=== PATIENT | male | born 1955 | race Caucasian/White ===

== ENCOUNTER 2019-07-18 13:55 | Outpatient (CLI) | payer BC, SELFPAY ==
--- NOTE | 2019-07-18 14:05 | XR_ITS ---
WS: [id number] RIGHT SCAPULA 2 VIEWS REASON FOR STUDY: . HISTORY: RIGHT SHOULDER PAIN COMPARISON: None available. No acute fracture or dislocation is apparent. The RIGHT scapula is intact. Moderate AC joint disease and osteochondral lesion along the superior glenoid are reidentified. Visualized RIGHT upper lung and ribs are clear. 1. Small osteochondral lesion along the superior glenoid. 2. Scapula is otherwise negative. XR/[place] [id number] IMPRESSION:
--- NOTE | 2019-07-18 14:05 | XR_ITS ---
WS: [id number] RIGHT SHOULDER: 2 VIEW(S) TECHNIQUE: Internal and external rotation. HISTORY: RIGHT SHOULDER PAIN COMPARISON: None available. No fracture or dislocation or soft tissue abnormality. Moderate narrowing of the AC joint. Subchondral cystic changes and osteophytes at the AC joint articu lar surfaces. 4 mm osteophyte from the distal inferior clavicle extends towards the rotator cuff. Sma ll osteochondral lesion along the superior glenoid. 1. Moderate AC joint osteoarthritis. 2. Small osteochondral lesion along the superior glenoid. XR/XR shoulder RT min 2V* [id number] IMPRESSION:
== END 2019-07-18 13:56 | disposition home or self-care (01) ==
LOC: WPI 14:00
PROVIDERS: Family Provider Family Medicine; PCP Family Medicine; Referring Provider Family Medicine; Visit Provider Family Medicine
DX: M19.011 Primary osteoarthritis, right shoulder (principal); M93.811 Other specified osteochondropathies, right shoulder; M25.511 Pain in right shoulder
CPT/HCPCS: 73010; 73030

== ENCOUNTER 2019-09-18 12:00 | Outpatient (CLI) | payer BC, SELFPAY | END 2019-09-18 12:01 | disposition home or self-care (01) | LOC: SLEEP 09-19 15:52 | PROVIDERS: Family Provider Family Medicine; PCP Family Medicine; Visit Provider Family Medicine | DX: G47.33 Obstructive sleep apnea (adult) (pediatric) (principal) | CPT/HCPCS: 95810; G0399 ==

== ENCOUNTER 2020-04-19 16:52 | Emergency (ER) | payer BC, SELFPAY ==
[2020-04-19] VITALS (7 sets, daily range): BP systolic 113–158; BP diastolic 73–117; PULSE 80–110; RESP 16–18; TEMP 36.5–36.8; O2SAT 96–99; BMI 24.4
--- NOTE | 2020-04-19 17:39 | XRR_ITS ---
PROCEDURE INFORMATION: Exam: XR Chest, 1 View Exam date and time: 04/19/2020 5:40 PM Age: 64 years old Clinical indication: Dyspnea and shortness of breath; Additional info: Covid TECHNIQUE: Imaging protocol: XR of the chest Views: 1 view. COMPARISON: [place] [id number] 07/18/2019 2:19 PM FINDINGS: Lungs: Unremarkable. No consolidation. Pleural space: Unremarkable. No pleural effusion. No pneumothorax. Heart/Mediastinum: Unremarkable. No cardiomegaly. Calcified granuloma left hilum Bones/joints: Unremarkable. Metallic orthopedic hardware cervical spine XR/XR chest 1V portable [id number] IMPRESSION: No acute findings. Metallic hardware cervical spine
--- NOTE | 2020-04-19 17:40 | ED_ITS ---
HPI - Nausea/Vomiting/Diarrhea General: Chief complaint: Nausea/Vomiting/Diarrhea Stated complaint: COVID + Time Seen by Provider: 04/19/20 17:31 History of Present Illness: HPI Narrative: This patient is a 64-year-old male who comes in with persistent vomiting for the past 4 days. He was noted to be positive for COVID on . That is when his symptoms started. He has had a cough but denies significant shortness of breath. He has had some abdominal discomfort related to vomiting. No diarrhea. He has had body aches, fever, chills. He does not know when or how he was exposed. MD elicited complaint: nausea and vomiting Onset (ago): day(s) (4) Description of vomiting: bilious Associated nausea: Yes Location of pain: Diffuse Associated symtoms: Reports cough, fatigue, headache(s), anorexia, malaise, myalgias, nausea, short of breath and weakness; Denies change in vision or chest pain Review of Systems General: Reports: 10 or more systems reviewed and unremarkable except in HPI and below Const: Reports: fatigue and malaise Eyes: Denies: change in vision ENMT: Denies: odynophagia Card: Denies: chest pain or swelling of feet/ankles Resp: Reports: dyspnea and non-productive cough; Denies: productive cough GI: Reports: nausea and vomiting : Denies: flank pain Musc: Reports: back pain; Denies: neck pain Skin/Breast: Denies: rash Neuro: Reports: headache(s) Danyel/Lymph: Denies: easy bruising or easy bleeding PFS ED PFSH: Social History Smoking and tobacco status: never smoked Alcohol intake: never Physical Exam Const: COMMON NORMALS: no acute distress, average body habitus, patient oriented x3 and alert GENERAL APPEARANCE: cooperative, comfortable and ill appearing (Required assistance to ambulate to the room in the ER. Very weak.) HENMT: HEAD & SCALP: normal to inspection FACE & SINUS: normal facial exam Eye: GENERAL EYE: appearance normal, both eyes and all related structures Neck/C-Spine: COMMON NORMALS: supple, no meningeal signs and no JVD Chest: COMMONS NORMALS: normal inspection of the chest Resp: COMMON NORMALS: normal respiratory effort, No use of accessory muscles and clear to auscultation bilaterally AUSCULTATION: clear to auscultation bilaterally Cardio: COMMON NORMALS: no JVD, regular rhythm and No murmurs present (Cardio) RATE: tachycardic RHYTHM: regular rhythm GI: COMMON NORMALS: Normal to inspection, nondistended, normoactive bowel sounds present and Soft to palpation INSPECTION: Yes normal to inspection AUSCULTATION: Yes normoactive bowel sounds PALPATION: Yes Soft to palpation and Yes Tenderness to palpation present (GI) (Mild, diffuse) Back/Pelvis: COMMON NORMALS: thoracic and lumbar spine normal to inspection Extremity: COMMON NORMALS: normal to inspection Neuro: COMMON NORMALS: patient oriented x3, moves all extremities, no focal motor deficits and no sensory deficits noted SENSORIUM/ORIENTATION: Yes alert MENINGEAL SIGNS: Yes no meningeal signs Psych: COMMON NORMALS: mental status grossly normal, cooperative and normal affect Skin: COMMON NORMALS: no rashes or lesions noted and turgor normal GENERAL SKIN EXAM: no rashes or lesions noted and turgor normal Course ED course: Patient was miserable on arrival with persistent vomiting. After 2 L of fluid and some Zofran he is feeling much better. He was able to tolerate fluids and some Jell-O. His inflammatory markers are not terribly high. His chest x-ray looks okay. We discussed the potential for worsening of this illness between day 7 and 10 or really at any time. He will continue to monitor his symptoms closely and will return if he is worsening. I am in a send him home with some Zofran. Vital Signs: Vital signs: Vital Signs Temperature 98.3 F 04/19/20 22:07 Pulse Rate 84 04/19/20 22:07 Respiratory Rate 16 04/19/20 22:07 Blood Pressure 113/73 04/19/20 22:07 Pulse Oximetry 98 04/19/20 22:07 MDM - Nausea/Vomiting/Diarrhea Lab Data: Labs: Lab Results 04/19/20 04/19/20 04/19/20 Range/Units 18:24 18:24 18:24 WBC 7.7 (4.0-10.0) 10^3/ uL RBC 5.64 H (4.1-5.3) 10^6/u L Hgb 16.9 H (11.7-16.6) g/dL Hct 51.3 (42.0-52.0) % MCV 91.0 (80-94) fL MCH 30.0 (28.0-34.0) pg MCHC 32.9 (30.0-36.0) g/dL RDW 12.2 (12.1-15.1) % Plt Count 276 (130-400) 10^3/c mm MPV 10.1 (7.4-10.4) fL Neut % (Auto) 76.0 % Lymph % (Auto) 16.7 % Mathews % (Auto) 7.1 % Eos % (Auto) 0.0 % Baso % (Auto) 0.1 % Neut # (Auto) 5.86 (1.8-7.7) 10^3/u L Lymph # (Auto) 1.3 (0.8-4.8) 10^3/u L Mathews # (Auto) 0.6 (0.2-0.9) 10^3/u L Eos # (Auto) 0.0 (0.0-0.8) 10^3/u L Baso # (Auto) 0.0 (0.0-0.1) 10^3/u L Nucleated RBC % (a uto) 0 % Nucleated RBCs # 0.0 /100WBC PT 13.10 (12.1-14.9) SECO NDS INR 0.96 (0.8-1.2) Fibrinogen 531 H (174-498) mg/dL D-Dimer 0.37 (0-0.59) ug/mIFE U Sodium 135 L (136-145) mmol/L Potassium 4.7 (3.5-5.1) mmol/L Chloride 95 L (98-107) mmol/L Carbon Dioxide 26 (22-29) mmol/L Anion Gap 18.7 (5-19) BUN 22 (8-23) mg/dL Creatinine 1.0 (0.7-1.2) mg/dL GFR Calculation 75.2 L (90-130) mL/min Glucose 145 H (65-115) mg/dL Calculated Osmolal ity 286 (285-295) mOsm/k g Lactic Acid (0.5-2.2) mmol/L Calcium 9.9 (8.5-10.5) mg/dL Ferritin 215 (30-400) ng/mL Total Bilirubin 0.4 (0.15-1.2) mg/dL AST 27 (0-40) U/L ALT 31 (0-41) U/L Alkaline Phosphata se 117 (40-130) IU/L C-Reactive Protein 9.7 H (0.0-4.9) mg/L NT-Pro-B Natriuret Pep 10 (0-125) pg/mL Total Protein 8.5 (6.6-8.7) g/dL Albumin 4.9 (3.5-5.2) g/dL Globulin 3.6 (1.3-4.6) g/dL Lipase 31 (13-60) U/L Procalcitonin 0.12 (0-0.5) ng/mL 10// Range/Units 18:24 WBC (4.0-10.0) 10^3/ uL RBC (4.1-5.3) 10^6/u L Hgb (11.7-16.6) g/dL Hct (42.0-52.0) % MCV (80-94) fL MCH (28.0-34.0) pg MCHC (30.0-36.0) g/dL RDW (12.1-15.1) % Plt Count (130-400) 10^3/c mm MPV (7.4-10.4) fL Neut % (Auto) % Lymph % (Auto) % Mathews % (Auto) % Eos % (Auto) % Baso % (Auto) % Neut # (Auto) (1.8-7.7) 10^3/u L Lymph # (Auto) (0.8-4.8) 10^3/u L Mathews # (Auto) (0.2-0.9) 10^3/u L Eos # (Auto) (0.0-0.8) 10^3/u L Baso # (Auto) (0.0-0.1) 10^3/u L Nucleated RBC % (a uto) % Nucleated RBCs # /100WBC PT (12.1-14.9) SECO NDS INR (0.8-1.2) Fibrinogen (174-498) mg/dL D-Dimer (0-0.59) ug/mIFE U Sodium (136-145) mmol/L Potassium (3.5-5.1) mmol/L Chloride (98-107) mmol/L Carbon Dioxide (22-29) mmol/L Anion Gap (5-19) BUN (8-23) mg/dL Creatinine (0.7-1.2) mg/dL GFR Calculation (90-130) mL/min Glucose (65-115) mg/dL Calculated Osmolal ity (285-295) mOsm/k g Lactic Acid 2.1 (0.5-2.2) mmol/L Calcium (8.5-10.5) mg/dL Ferritin (30-400) ng/mL Total Bilirubin (0.15-1.2) mg/dL AST (0-40) U/L ALT (0-41) U/L Alkaline Phosphata se (40-130) IU/L C-Reactive Protein (0.0-4.9) mg/L NT-Pro-B Natriuret Pep (0-125) pg/mL Total Protein (6.6-8.7) g/dL Albumin (3.5-5.2) g/dL Globulin (1.3-4.6) g/dL Lipase (13-60) U/L Procalcitonin (0-0.5) ng/mL Discharge Plan Discharge Patient Disposition: Home Clinical Impression: Dehydration, COVID-19 Vomiting Qualifiers: Vomiting type: unspecified Vomiting Intractability: non-intractable Nausea pres ence: with nausea Qualified Code(s): R11.2 - Nausea with vomiting, unspecified Condition: Stable Prescriptions: New ondansetron HCl 4 mg tablet 4 mg PO Q6H PRN (Reason: nausea and vomiting) Qty: 10 RF: 0 No Action Zomig 2.5 mg spray,non-aerosol 2.5 mg INTRANASAL Q2H PRNRF: 0 Discharge Orders: Discharge Order (Routine); Ordered 04/19/20 Ordered By: Nga Ruvalcaba Referrals: Chad Hunt DO [Primary Care Provider] - Discharge Diet: Advance as tolerated Discharge Activity: Limit activity as instructed Patient Instructions: Acute Nausea and Vomiting (ED) Activity Restrictions/Additional Instructions: Return to the emergency room if feeling worse in any way including persistent vomiting, severe diarrhea, confusion, shortness of breath. Coding Level of Care Code ED Retort Loader for Chg Fwd Exam Comprehensive
[2020-04-19] MEDS: ondansetron 4 MG Tablet PO ×2 (18:40→21:58)
[2020-04-19] MEDS: ondansetron 2 mg/ML SDV 2 mL 4 MG IVP (18:40)
[2020-04-19] MEDS: sodium chloride 0.9% 1,000 ML 999 ML IV ×2 (18:40→20:33)
[2020-04-19 18:50] LABS: Basophils % 0.1 %; Hematocrit 51.3 % (42.0-52.0); Hemoglobin 16.9 g/dL (11.7-16.6); Lymphocytes # 1.3 10^3/uL (0.8-4.8); Lymphocytes % 16.7 %; Mean Corpuscular HGB Conc 32.9 g/dL (30.0-36.0); Mean Platelet Volume 10.1 fL (7.4-10.4); Monocytes # 0.6 10^3/uL (0.2-0.9); Monocytes % 7.1 %; Neutrophils # 5.86 10^3/uL (1.8-7.7); Nucleated Red Blood Cells % 0 %; Platelet Count 276 10^3/cmm (130-400); Red Blood Count 5.64 10^6/uL (4.1-5.3); Red Cell Distribution Width 12.2 % (12.1-15.1); White Blood Count 7.7 10^3/uL (4.0-10.0)
[2020-04-19 18:57] LABS: Lactic Sepsis W/Reflex 2.1 mmol/L (0.5-2.2)
[2020-04-19 19:09] LABS: NT Pro B Type Natriuretic Pept 10 pg/mL (0-125); Procalcitonin 0.12 ng/mL (0-0.5)
[2020-04-19 19:20] LABS: Alanine Aminotransferase 31 U/L (0-41); Albumin Level 4.9 g/dL (3.5-5.2); Alkaline Phosphatase 117 IU/L (40-130); Anion Gap 18.7 (5-19); Aspartate Amino Transferase 27 U/L (0-40); Blood Urea Nitrogen 22 mg/dL (8-23); C Reactive Protein 9.7 mg/L (0.0-4.9); Calcium 9.9 mg/dL (8.5-10.5); Carbon Dioxide 26 mmol/L (22-29); Chloride 95 mmol/L (98-107); Ferritin 215 ng/mL (30-400); Globulin 3.6 g/dL (1.3-4.6); Glomerular Filtration Rate 75.2 mL/min (90-130); Glucose 145 mg/dL (65-115); Lipase 31 U/L (13-60); Osmolality Calculated 286 mOsm/kg (285-295); Potassium 4.7 mmol/L (3.5-5.1); Sodium 135 mmol/L (136-145); Total Bilirubin 0.4 mg/dL (0.15-1.2); Total Protein 8.5 g/dL (6.6-8.7)
[2020-04-19 19:53] LABS: Fibrinogen 531 mg/dL (174-498); INR 0.96 (0.8-1.2)
[2020-04-19 19:56] LABS: D Dimer 0.37 ug/mIFEU (0-0.59)
[2020-04-19 20:23] LABS: Reflex Lactate Order REFLEX LACTIC ORDERD
== END 2020-04-19 22:30 | disposition home or self-care (01) ==
PROVIDERS: Nurse Practitioner Family; Emergency Provider Emergency Medicine; Family Provider Family Medicine; PCP Family Medicine
DX: U07.1 COVID-19 (principal); R11.2 Nausea with vomiting, unspecified; E86.0 Dehydration
CPT/HCPCS: 12345; 71045; 80053; 82728; 83605; 83690; 83880; 84145; 85025; 85378; 85384; 85610; 86140; 96361; 96374; 96375; 99284; J2405; J7030; Q0162

== ENCOUNTER 2020-04-28 18:16 | Emergency (ER) | payer BC, SELFPAY ==
[2020-04-28 18:48] VITALS: BP 123/75; PULSE 106; RESP 18; TEMP 37.1; O2SAT 97; BMI 24.3
--- NOTE | 2020-04-28 19:49 | XRR_ITS ---
PROCEDURE INFORMATION: Exam: XR Chest, 1 View Exam date and time: 04/28/2020 9:36 PM Age: 64 years old Clinical indication: Other: Vomit; Prior surgery; Surgery type: Neck; Patient HX: Covid symptoms TECHNIQUE: Imaging protocol: XR of the chest Views: 1 view. COMPARISON: CR (CHEST, ) 04/19/2020 5:51 PM FINDINGS: Lungs: Bilateral interstitial and patchy alveolar infiltrates have developed in the lungs since the previous chest radiograph. This is consistent with a pneumonia possibly viral in nature. Multiple benign hilar and mediastinal calcified lymph nodes are seen. Pleural space: Unremarkable. No pleural effusion. No pneumothorax. Heart/Mediastinum: The heart is not enlarged. Bones/joints: The patient has undergone lower cervical spine surgical fusion.. XR/XR chest 1V portable [id number] IMPRESSION: The for since the previous study the patient has developed bilateral pneumonia.
--- NOTE | 2020-04-28 20:05 | CTR_ITS ---
PROCEDURE INFORMATION: Exam: CT Abdomen And Pelvis With Contrast Exam date and time: 04/28/2020 9:38 PM Age: 64 years old Clinical indication: Nausea and vomiting; Additional info: Abd pain TECHNIQUE: Imaging protocol: Computed tomography of the abdomen and pelvis with intravenous contrast. Radiation optimization: All CT scans at this facility use at least one of these dose optimization techniques: automated exposure control; mA and/or kV adjustment per patient size (includes targeted exams where dose is matched to clinical indication); or iterative reconstruction. Contrast material: OMNI 300; Contrast volume: 95 ml; Contrast route: INTRAVENOUS (IV); COMPARISON: No relevant prior studies available. RADIATION DOSE METRICS: Total DLP (mGy-cm): 616.55 FINDINGS: Lungs: Bibasilar airspace opacities suggestive of an infectious process. Liver: Normal. No mass. Gallbladder and bile ducts: Normal. No calcified stones. No ductal dilation. Pancreas: Normal. No ductal dilation. Spleen: Normal. No splenomegaly. Adrenals: Normal. No mass. Kidneys and ureters: Normal. No hydronephrosis. Stomach and bowel: Unremarkable. No obstruction. No mucosal thickening. Appendix: No evidence of appendicitis. Intraperitoneal space: Unremarkable. No free air. No significant fluid collection. Vasculature: Unremarkable. No abdominal aortic aneurysm. Lymph nodes: Unremarkable. No enlarged lymph nodes. Urinary bladder: Unremarkable as visualized. Reproductive: Unremarkable as visualized. Bones/joints: Unremarkable. No acute fracture. Soft tissues: Unremarkable. CT/CT abdomen pelvis w con* [id number] IMPRESSION: 1. Negative for acute inflammatory process in the abdomen or pelvis 2. Bibasilar airspace opacities suggestive of an infectious process. Radiation Dose CTDIVOL = (mGy): DLP = 616.55 (mGy-cm)
--- NOTE | 2020-04-28 20:23 | W.ED.ABDPA2 ---
HPI - Abdominal Pain General: Chief Complaint: Abdominal Pain Stated Complaint: vomiting/ cant keep anything down Time Seen by Provider: 04/28/20 19:48 Source: patient Mode of arrival: ambulatory Limitations: no limitations History of Present Illness: HPI narrative: 64-year-old male who tested positive for Covid 12 days ago. He states that ever since then he has had severe nausea and vomiting has not been able to keep any solids or liquids down. Patient was seen 1 week ago and prescribed Zofran he states had no improvement. He states he is having generalized weakness. He states he feels dehydrated. Denies any fever cough or shortness of breath. Associated Symptoms: Reports nausea and vomiting; Denies chills, dysuria and fever(s) Review of Systems Const: Denies: fever(s), chills, body aches or change in appetite Eyes: Denies: blurry vision or eye discomfort ENMT: Denies: throat pain or dental pain Card: Denies: chest pain Resp: Denies: dyspnea GI: Reports: nausea and vomiting : Denies: dysuria Musc: Denies: neck pain or back pain Skin/Breast: Denies: rash Neuro: Denies: headache(s) Psych: Denies: depression Danyel/Lymph: Denies: easy bruising All/Imm: Denies: urticaria PFSH ED PFSH: Social History Smoking and tobacco status: never smoked Alcohol intake: never Physical Exam Const: COMMON NORMALS: no acute distress and patient oriented x3 GENERAL APPEARANCE: ill appearing HENMT: COMMON NORMALS: normocephalic and atraumatic HEAD & SCALP: normocephalic and atraumatic Eye: COMMON NORMALS: Equal, round and reactive pupils present and EOMs intact bilaterally PUPIL: Yes Equal, round and reactive pupils present Neck/C-Spine: COMMON NORMALS: full ROM and supple Chest: COMMONS NORMALS: normal inspection of the chest and normal palpation of entire chest wall Resp: COMMON NORMALS: normal respiratory effort, No retractions, No use of accessory muscles and clear to auscultation bilaterally AUSCULTATION: clear to auscultation bilaterally Cardio: COMMON NORMALS: regular rhythm and No murmurs present (Cardio) RATE: tachycardic RHYTHM: regular rhythm GI: COMMON NORMALS: Normal to inspection, nondistended, normoactive bowel sounds present, Soft to palpation, non-tender and no masses PALPATION: Yes Soft to palpation Extremity: COMMON NORMALS: normal to inspection and full ROM Neuro: COMMON NORMALS: patient oriented x3, moves all extremities and no focal motor deficits Psych: COMMON NORMALS: mental status grossly normal, Normal thought process present and cooperative THOUGHT PROCESS: Normal thought process present Skin: COMMON NORMALS: no rashes or lesions noted and no wounds GENERAL SKIN EXAM: no rashes or lesions noted Course Vital Signs: Vital signs: Vital Signs Temperature 98.7 F 04/28/20 18:48 Pulse Rate 86 04/28/20 22:54 Respiratory Rate 16 04/28/20 22:54 Blood Pressure 136/83 04/28/20 22:54 Pulse Oximetry 95 04/28/20 22:54 MDM - Abdominal Pain MDM Narrative: Medical decision making narrative: Patient presents here with vomiting likely from COVID-19. He is otherwise well-appearing here. Patient's CT scan here showed no acute findings and his blood work is normal as well. Patient is stable for discharge and is to follow-up PCP and return if worsening. Lab Data: Labs: Lab Results 04/28/20 04/28/20 Range/Units 20:49 20:49 WBC 8.7 (4.0-10.0) 10^3/ uL RBC 5.34 H (4.1-5.3) 10^6/u L Hgb 15.9 (11.7-16.6) g/dL Hct 47.0 (42.0-52.0) % MCV 88.0 (80-94) fL MCH 29.8 (28.0-34.0) pg MCHC 33.8 (30.0-36.0) g/dL RDW 11.5 L (12.1-15.1) % Plt Count 300 (130-400) 10^3/c mm MPV 10.6 H (7.4-10.4) fL Neut % (Auto) 68.0 % Lymph % (Auto) 19.0 % [place] % (Auto) 12.0 % Eos % (Auto) 0.2 % Baso % (Auto) 0.1 % Neut # (Auto) 5.94 (1.8-7.7) 10^3/u L Lymph # (Auto) 1.7 (0.8-4.8) 10^3/u L [place] # (Auto) 1.1 H (0.2-0.9) 10^3/u L Eos # (Auto) 0.0 (0.0-0.8) 10^3/u L Baso # (Auto) 0.0 (0.0-0.1) 10^3/u L Nucleated RBC % (a uto) 0 % Nucleated RBCs # 0.0 /100WBC Sodium 134 L (136-145) mmol/L Potassium 3.4 L (3.5-5.1) mmol/L Chloride 96 L (98-107) mmol/L Carbon Dioxide 23 (22-29) mmol/L Anion Gap 18.4 (5-19) BUN 20 (8-23) mg/dL Creatinine 0.8 (0.7-1.2) mg/dL GFR Calculation 97.3 (90-130) mL/min Glucose 126 H (65-115) mg/dL Calculated Osmolal ity 282 L (285-295) mOsm/k g Calcium 9.5 (8.5-10.5) mg/dL Total Bilirubin 1.1 (0.15-1.2) mg/dL AST 43 H (0-40) U/L ALT 35 (0-41) U/L Alkaline Phosphata se 109 (40-130) IU/L Total Protein 7.6 (6.6-8.7) g/dL Albumin 4.0 (3.5-5.2) g/dL Globulin 3.6 (1.3-4.6) g/dL Lipase 70 H (13-60) U/L Imaging Data ^: CT Abd/Pel: Radiologist's impression: [address] [place] [address] CT Scan Report Signed Patient: Ramón Clarke Unit #: [id number] : 1955 Age/Sex: 64 / M ADM Date: 04/28/20 Loc: ER Room/Bed: Attending Dr: Ordering Provider/Ordering MD: Kevin Shay MD Date of Service: 04/28/20 Procedure(s): CT abdomen pelvis w con* [id number] Accession Number(s): [id number] Report Number: [id number] PROCEDURE INFORMATION: Exam: CT Abdomen And Pelvis With Contrast Exam date and time: 04/28/2020 9:38 PM Age: 64 years old Clinical indication: Nausea and vomiting; Additional info: Abd pain TECHNIQUE: Imaging protocol: Computed tomography of the abdomen and pelvis with intravenous contrast. Radiation optimization: All CT scans at this facility use at least one of these dose optimization techniques: automated exposure control; mA and/or kV adjustment per patient size (includes targeted exams where dose is matched to clinical indication); or iterative reconstruction. Contrast material: OMNI 300; Contrast volume: 95 ml; Contrast route: INTRAVENOUS (IV); COMPARISON: No relevant prior studies available. RADIATION DOSE METRICS: Total DLP (mGy-cm): 616.55 FINDINGS: Lungs: Bibasilar airspace opacities suggestive of an infectious process. Liver: Normal. No mass. Gallbladder and bile ducts: Normal. No calcified stones. No ductal dilation. Pancreas: Normal. No ductal dilation. Spleen: Normal. No splenomegaly. Adrenals: Normal. No mass. Kidneys and ureters: Normal. No hydronephrosis. Stomach and bowel: Unremarkable. No obstruction. No mucosal thickening. Appendix: No evidence of appendicitis. Intraperitoneal space: Unremarkable. No free air. No significant fluid collection. Vasculature: Unremarkable. No abdominal aortic aneurysm. Lymph nodes: Unremarkable. No enlarged lymph nodes. Urinary bladder: Unremarkable as visualized. Reproductive: Unremarkable as visualized. Bones/joints: Unremarkable. No acute fracture. Soft tissues: Unremarkable. CT/CT abdomen pelvis w con* [id number] IMPRESSION: 1. Negative for acute inflammatory process in the abdomen or pelvis 2. Bibasilar airspace opacities suggestive of an infectious process. Discharge Plan Discharge Patient Disposition: Home Clinical Impression: COVID-19 Vomiting Qualifiers: Vomiting type: unspecified Vomiting Intractability: non-intractable Nausea presence: with nausea Qualified Code(s): R11.2 - Nausea with vomiting, unspecified Condition: Stable Prescriptions: New Reglan 10 mg tablet 10 mg PO Q6H PRN (Reason: nausea and vomiting) Qty: 20 RF: 0 No Action Zomig 2.5 mg spray,non-aerosol 2.5 mg INTRANASAL Q2H PRNRF: 0 ondansetron HCl 4 mg tablet 4 mg PO Q6H PRN (Reason: nausea and vomiting) Qty: 10 RF: 0 Discharge Orders: Discharge Order (Routine); Ordered 04/28/20 Ordered By: Kevin Shay Referrals: Chad Hunt DO [Primary Care Provider] - Discharge Diet: Advance as tolerated Discharge Activity: Resume usual activity Patient Instructions: Acute Nausea and Vomiting (ED) Discharge Date/Time: 04/28/20 22:56 Coding Level of Care Code ED Assistant Store Leader for Chg Fwd Exam Comprehensive
[2020-04-28] MEDS: sodium chloride 0.9% 1,000 ML 999 ML IV ×2 (20:48→22:07)
[2020-04-28] MEDS: ondansetron 2 mg/ML SDV 2 mL 4 MG IVP (20:49)
[2020-04-28 20:53] LABS: Basophils % 0.1 %; Eosinophils % 0.2 %; Hemoglobin 15.9 g/dL (11.7-16.6); Lymphocytes # 1.7 10^3/uL (0.8-4.8); Mean Corpuscular HGB Conc 33.8 g/dL (30.0-36.0); Mean Corpuscular Hemoglobin 29.8 pg (28.0-34.0); Mean Platelet Volume 10.6 fL (7.4-10.4); Monocytes # 1.1 10^3/uL (0.2-0.9); Neutrophils # 5.94 10^3/uL (1.8-7.7); Nucleated Red Blood Cells % 0 %; Platelet Count 300 10^3/cmm (130-400); Red Blood Count 5.34 10^6/uL (4.1-5.3); Red Cell Distribution Width 11.5 % (12.1-15.1); White Blood Count 8.7 10^3/uL (4.0-10.0)
[2020-04-28 21:00] VITALS: BP 114/70; RESP 18; O2SAT 95
[2020-04-28 21:12] LABS: Alanine Aminotransferase 35 U/L (0-41); Alkaline Phosphatase 109 IU/L (40-130); Anion Gap 18.4 (5-19); Aspartate Amino Transferase 43 U/L (0-40); Blood Urea Nitrogen 20 mg/dL (8-23); Calcium 9.5 mg/dL (8.5-10.5); Carbon Dioxide 23 mmol/L (22-29); Chloride 96 mmol/L (98-107); Globulin 3.6 g/dL (1.3-4.6); Glomerular Filtration Rate 97.3 mL/min (90-130); Glucose 126 mg/dL (65-115); Lipase 70 U/L (13-60); Osmolality Calculated 282 mOsm/kg (285-295); Potassium 3.4 mmol/L (3.5-5.1); Sodium 134 mmol/L (136-145); Total Bilirubin 1.1 mg/dL (0.15-1.2); Total Protein 7.6 g/dL (6.6-8.7)
[2020-04-28] MEDS: iohexol 300 mg/mL 100 mL Btl IV (21:55)
[2020-04-28] MEDS: diphenhydrAMINE 50 mg/mL SDV 1mL 25 MG IVP (22:06)
[2020-04-28] MEDS: metoclopramide 5 mg/mL SDV 2 mL IVP (22:06)
[2020-04-28 22:27] VITALS: BP 137/75; PULSE 87; O2SAT 97
[2020-04-28] MEDS: metoclopramide 10 mg Tablet PO ×2 (22:45→22:48)
[2020-04-28 22:54] VITALS: BP 136/83; PULSE 86; RESP 16; O2SAT 95
== END 2020-04-28 22:56 | disposition home or self-care (01) ==
PROVIDERS: Emergency Provider Emergency Medicine; PCP Family Medicine
DX: U07.1 COVID-19 (principal); R11.2 Nausea with vomiting, unspecified
CPT/HCPCS: 12345; 71045; 74177; 80053; 83690; 85025; 96361; 96374; 96375; 99283; J1200; J2405; J2765; J7030; J8597; Q9967

== ENCOUNTER → 2020-12-01 11:46 | Outpatient (BNVA) | payer MEDICARE, BC, SELFPAY | PROVIDERS: PCP Family Medicine; Referring Provider Family Medicine; Visit Provider Specialist | DX: G43.711 Chronic migraine without aura, intractable, with status migrainosus (principal) | CPT/HCPCS: 99204 ==

== ENCOUNTER → 2021-03-01 08:09 | Outpatient (BNVA) | payer MEDICARE, BC, SELFPAY | PROVIDERS: PCP Family Medicine; Visit Provider Specialist | DX: G43.711 Chronic migraine without aura, intractable, with status migrainosus (principal) | CPT/HCPCS: 99212; 99214 ==

== ENCOUNTER → 2021-06-07 14:21 | Outpatient (BNVA) | payer MEDICARE, BC, SELFPAY | PROVIDERS: PCP Family Medicine; Visit Provider Nurse Practitioner | DX: G43.711 Chronic migraine without aura, intractable, with status migrainosus (principal); M54.12 Radiculopathy, cervical region | CPT/HCPCS: 99213; 99214 ==

== ENCOUNTER 2021-06-29 15:24 | Outpatient (CLI) | payer MEDICARE, BC, SELFPAY ==
--- NOTE | 2021-06-29 15:29 | MR_ITS ---
WS: [id number] MRI CERVICAL SPINE NONCONTRAST TECHNIQUE: Sagittal T1, T2 and STIR imaging. Axial T2, gradient, and fiesta imaging. CLINICAL INFORMATION: CERVICAL RADICULOPATHY/POST OP COMPARISON: None. FINDINGS: Straightening of the normal cervical lordosis. Prior postoperative changes ACDF C5-6. Cord signal is normal. No high-grade central canal stenosis. Slight retrolisthesis C3 on C4 and C4 on C5. C2-C3: No significant disc bulging. Moderate left facet arthropathy. Moderate left and no significant right foraminal narrowing. Spinal canal is patent. C3-C4: No significant disc bulging. Moderate left facet arthropathy. Moderate left and no significant right foraminal narrowing. C4-C5: Mild disc osteophytic ridging. Moderate to advanced right facet arthropathy with moderate to s evere right and moderate left bony foraminal narrowing. Spinal canal is patent. C5-C6: Postoperative changes ACDF. Mild bilateral bony foraminal narrowing. Spinal canal is patent. M ild facet arthropathy. C6-C7: Postoperative changes ACDF. Spinal canal is patent. Mild bilateral bony foraminal narrowing. M ild facet arthropathy. C7-T1: No significant disc bulging. Mild left and no significant right foraminal narrowing. Spinal ca nal is patent. Normal visualized brain stem structures. Normal posterior fossa. Small amount of edema in the articul ating left C6-7 facets with periarticular soft tissue edema compatible with synovitis. MR/MR cervical spin wo con* [id number] IMPRESSION: 1. Straightening of the normal cervical lordosis with ACDF C5-6. 2. Spinal canal is patent at the fusion levels. 3. Moderate to severe bony foraminal narrowing worse at left C2-3 and right C4 -C5 with asymmetric moderate to advanced facet arthropathy at these levels 4. Edema involving the articulating left C6-7 facets with periarticular soft t issue edema compatible with synovitis. 5. Spinal canal and foraminal narrowing not significantly changed since 2016
== END 2021-06-29 15:25 | disposition home or self-care (01) ==
PROVIDERS: PCP Family Medicine; Visit Provider Nurse Practitioner
DX: M54.12 Radiculopathy, cervical region (principal); R60.0 Localized edema
CPT/HCPCS: 72141

== ENCOUNTER → 2022-03-04 08:03 | Outpatient (BNVA) | payer MEDICARE, BC, SELFPAY | PROVIDERS: PCP Family Medicine; Visit Provider Nurse Practitioner | DX: G43.711 Chronic migraine without aura, intractable, with status migrainosus (principal); M54.12 Radiculopathy, cervical region; R53.83 Other fatigue; R41.89 Other symptoms and signs involving cognitive functions and awareness; U07.1 COVID-19 | CPT/HCPCS: 82607; 84402; 84403; 84443; 99213; 99214 ==

== ENCOUNTER → 2022-08-05 11:08 | Outpatient (BNVA) | payer MEDICARE, BC, SELFPAY | PROVIDERS: PCP Family Medicine; Visit Provider Nurse Practitioner | DX: G43.711 Chronic migraine without aura, intractable, with status migrainosus (principal) | CPT/HCPCS: 99213 ==

== ENCOUNTER 2022-08-11 13:32 | Outpatient (CLI) | payer MEDICARE, BC, SELFPAY ==
--- NOTE | 2022-08-11 13:59 | XR_ITS ---
WS: [id number] Chest 2 views, 08/11/2022 Clinical Data: short of air with activity Comparison: Portable chest, 04/28/2020 Findings: No nodules, masses or effusions are seen. The heart is normal. The pulmonary vascularity is not increased. No pneumonia or pneumothorax is seen. There are calcified granulomas in the left hilu m extending into the left lower lobe. The aortic arch and descending thoracic aorta show calcificatio n and tortuosity. The diaphragms are flattened. The patient has had an anterior cervical disc fusion. XR/XR chest 2V* [id number] Impression: 1. Atherosclerosis and hyperinflation. 2. Old granulomatous disease.
== END 2022-08-11 13:33 | disposition home or self-care (01) ==
LOC: RAD 13:36
PROVIDERS: PCP Family Medicine; Visit Provider Family Medicine
DX: R06.00 Dyspnea, unspecified (principal); I70.90 Unspecified atherosclerosis; D71 Functional disorders of polymorphonuclear neutrophils; R53.83 Other fatigue; R39.15 Urgency of urination
CPT/HCPCS: 71046; 80053; 81003; 82607; 84443; 85025

== ENCOUNTER 2022-09-01 09:09 | Outpatient (CLI) | payer MEDICARE, BC, SELFPAY | END 2022-09-01 09:10 | disposition home or self-care (01) | LOC: RT 09:11 | PROVIDERS: PCP Family Medicine; Visit Provider Family Medicine | DX: R06.00 Dyspnea, unspecified (principal) | CPT/HCPCS: 94010; 94618 ==

== ENCOUNTER → 2022-11-14 12:28 | Outpatient (BNVA) | payer MEDICARE, BC, SELFPAY | PROVIDERS: PCP Family Medicine; Visit Provider Internal Medicine | DX: R07.9 Chest pain, unspecified (principal); R06.00 Dyspnea, unspecified; Z86.16 Personal history of COVID-19 | CPT/HCPCS: 93005; 99204 ==

== ENCOUNTER 2022-12-19 07:42 | Outpatient (CLI) | payer MEDICARE, BC, SELFPAY ==
--- NOTE | 2022-12-19 08:00 | USCV_ITS ---
Vince Ramón Age: 67 Gender: M : 1955 Exam Date: 12/19/2022 08:26 Ordering Phys: Greg Wynne M.D ([email or web address]) Technologist: Kameron Maki Exam [place] [facility] [place] Indication: sob BP: 130 / 75 HR: 78 Rhythm: Sinus Technical Quality: Adequate MEASUREMENTS (Male / Female) Normal Values 2D ECHO LV Diastolic Diameter PLAX 3.9 cm 4.2 - 5.9 / 3.9 - 5.3 cm LV Systolic Diameter PLAX 3.1 cm IVS Diastolic Thickness 1.3 cm 0.6 - 1.0 / 0.6 - 0.9 cm IVS Systolic Thickness 1.4 cm LVPW Diastolic Thickness 1.1 cm 0.6 - 1.0 / 0.6 - 0.9 cm LVPW Systolic Thickness 1.9 cm LVOT Diameter 1.9 cm LV Ejection Fraction 2D Teich 34.3 % LV Ejection Fraction MOD 2C 73.6 % LV Ejection Fraction 2C AL 74.3 % LA Diameter 3.6 cm IVC Diameter 1.4 cm M-MODE Aortic Annulus Diameter 4.2 cm LA Ao Ratio MM 0.9 DOPPLER AV Peak Velocity 129.0 cm/s LVOT Peak Velocity 85.0 cm/s AV Area Cont Eq vti 2.3 cm squared AV Area Cont Eq pk 1.9 cm squared MV Area PHT 4.3 cm squared Mitral E to A Ratio 0.8 MV E' Velocity 32.5 cm/s Mitral E to MV E' Ratio 11.3 Mitral E to LV E' Lateral Ratio 11.9 Mitral E to LV E' Septal Ratio 10.8 TR Peak Velocity 172.7 cm/s TR Peak Gradient 11.9 mmHg TV Peak E Velocity 72.0 cm/s Right Atrial Pressure 3.0 mmHg Pulmonary Artery Systolic Pressu 14.9 mmHg FINDINGS Left Ventricle Left ventricle is normal in size. LV systolic function is normal with EF of 60 to 65%. No regional wall motion abnormalities are seen. Grade 1 diastolic dysfunction Right Ventricle Normal in size and function Right Atrium Normal in size Left Atrium Normal in size Mitral Valve Structurally normal mitral valve. Trace mitral regurgitation. Aortic Valve Grossly normal. No significant stenosis or regurgitation. Tricuspid Valve Insufficient TR jet to calculate RVSP Pulmonic Valve Not well visualized Pericardium Grossly normal Aorta Normal in size IVC Appears to be normal CONCLUSIONS Technically limited quality echocardiogram because of poor ultrasonic windows. LV systolic function is normal with EF of 60 to 65%. Grade 1 diastolic dysfunction Trace mitral regurgitation No comparison studies are available. Greg Wynne MD (Electronically Signed) Final Date: 31 December 2022 12:47 S
[2022-12-19 08:38] VITALS: BMI 26.5
--- NOTE | 2022-12-19 08:43 | ECG_ITS ---
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 Interpretive Statements NAME OF STUDY: LEXISCAN SESTAMIBI STRESS TEST INDICATION: [Chest Pain, ] Procedure: At the baseline, the blood pressure was 151/98 mmHg with a heart rate of 66 bpm. The electrocardiogram showed normal sinus rhythm, normal axis with normal ST and T's. The Lexiscan was infused over a period of 20 seconds. A total of 0.4 mg of Lexiscan was infused. The stress phase was continued for a total of 5 minutes. Heart rate was at the end of stress phase was 90 bpm and a blood pressure of 166/93 mmHg. The EKG at the peak infusion revealed normal sinus rhythm with no significant ST-T wave changes. Sestamibi was injected 20 seconds after the Lexiscan infusion. Blood pressure at the end of recovery phase was 164/94 mmHg with a heart rate of 82 bpm. Conclusion: 1. Normal EKG response to Lexiscan infusion 2. No Lexiscan induced chest pain or cardiac arrhythmia. 3. Normal blood pressure and heart rate response. 4. Sestamibi/sestamibi perfusion scan pending; see separate report. Electronically Signed On 12-30-2022 14:35:00 CDT by Greg Wynne M.D. [id number]
--- NOTE | 2022-12-19 08:44 | NMCV_ITS ---
NM ann perf SPECT r/s* [id number] Ramón Clarke Age: 67 Gender: M : 1955 Exam Date: 12/19/2022 10:07 Ordering Phys: Greg Wynne M.D ([email or web address]) Technologist: SEAN Salinas Exam Location: [facility] Indications: CHEST PAIN, SHORTNESS OF BREATH STRESS TEST Please see separate stress test report in [facility] for full findings IMAGE PROTOCOL Rest/Stress 1 Lexiscan Day Radiopharmaceutical Dose (mCi) Administration Site Administered by Rest: Tc-99m 10.9 IV SEAN Canas Sestamibi Stress:Tc-99m 32.8 IV SEAN Canas Sestamibi Rest: 19-Dec-2022 60 Discovery 630 Stress: 19-Dec-2022 30 Discovery 630 0.4mg Lexiscan. Images obtained in supine and prone position. SPECT RESULTS Technical Quality: Excellent Raw Data Analysis: Normal Image Corrections: No attenuation or motion correction applied Summed Stress Score: 1 Summed Rest Score: 7 Summed Difference Score: 0 PERFUSION FINDINGS There is reduced radiotracer uptake is noted in inferior and inferolateral stratton that improves with stress imaging. This is consistent with attenuation artifact. No evidence of ischemia seen. FUNCTIONAL RESULTS (calculated via Gated SPECT) Stress Image LV EF (%): 58 Stress EDV (mL):123 TID: 0.95 Stress ESV (mL):52 FUNCTIONAL FINDINGS: There is normal left ventricular systolic function. IMPRESSIONS 1. Attenuation artifact noted in inferior and inferolateral wall. No evidence of ischemia. 2. LV systolic function is normal. Greg Wynne MD (Electronically Signed) Final Date: 22 December 2022 15:14 S
[2022-12-19] MEDS: regadenoson 0.4 Mg/5 ml Syringe IVP (10:42)
[2022-12-19] MEDS: ondansetron 2 mg/ML SDV 2 mL 4 MG IVP (10:50)
[2022-12-19 10:55] VITALS: BP 164/94; PULSE 82
== END 2022-12-19 07:43 | disposition home or self-care (01) ==
LOC: CDL 07:42
PROVIDERS: PCP Family Medicine; Visit Provider Internal Medicine
DX: R07.9 Chest pain, unspecified (principal); R06.00 Dyspnea, unspecified
CPT/HCPCS: 36415; 78452; 93017; 93306; 96374; 96375; A9500; J2405; J2785

== ENCOUNTER → 2023-02-02 12:48 | Outpatient (BNVA) | payer MEDICARE, BC, SELFPAY | PROVIDERS: PCP Family Medicine; Visit Provider Internal Medicine | DX: R06.00 Dyspnea, unspecified (principal) | CPT/HCPCS: 99214 ==

== ENCOUNTER → 2023-02-15 10:52 | Outpatient (BNVA) | payer MEDICARE, BC, SELFPAY | PROVIDERS: PCP Family Medicine; Visit Provider Specialist | DX: R06.00 Dyspnea, unspecified (principal); M54.12 Radiculopathy, cervical region; G43.711 Chronic migraine without aura, intractable, with status migrainosus; R53.83 Other fatigue; G31.84 Mild cognitive impairment of uncertain or unknown etiology | CPT/HCPCS: 0346U; 36415; 82607; 82746; 99215 ==

== ENCOUNTER 2023-03-07 11:37 | Outpatient (CLI) | payer MEDICARE, BC, SELFPAY ==
--- NOTE | 2023-03-07 11:45 | MR_ITS ---
WS: [id number] MRI HEAD WITHOUT CONTRAST TECHNIQUE: Sagittal T1, T2 axial, T2 axial FLAIR, axial and coronal T1 images, axial susceptibility w eighted imaging, axial diffusion weighted images, and coronal T2 images were obtained. CLINICAL INFORMATION: G31.84 - Mild cognitive impairment of uncertain or unknow... COMPARISON: MRI 2006 FINDINGS: No evidence of restricted diffusion to suggest acute ischemia. Ventricular system and basilar cistern s are patent. Mild small vessel changes. Moderate parenchymal volume loss. This has progressed since 2006. Parenchymal volume loss worse in the frontal lobes. Normal posterior fossa. Normal vascular flow voids at the skull base. No extra-axial fluid collection s. No mass or mass effect. Normal posterior nasopharynx. Normal parapharyngeal fat. Paranasal sinuses and mastoid air cells are well aerated. Normal optic chiasm and pituitary infundibulum. Mild symmetr ic atrophy temporal lobes and hippocampal formations. No hemosiderin on the susceptibly weighted imag es. IMPRESSION: 1. No evidence of restricted diffusion to suggest acute ischemia. 2. Progressed mild small vessel changes with moderate parenchymal volume loss worse in the frontal l obes. 3. Mild symmetric atrophy temporal lobes and hippocampal formations. 4. No hemosiderin on the susceptibly weighted images. 5. No other acute findings.
== END 2023-03-07 11:38 | disposition home or self-care (01) ==
LOC: RAD 11:38
PROVIDERS: PCP Family Medicine; Visit Provider Specialist
DX: G31.84 Mild cognitive impairment of uncertain or unknown etiology (principal); I67.89 Other cerebrovascular disease
CPT/HCPCS: 70551

== ENCOUNTER → 2023-05-17 13:48 | Outpatient (BNVA) | payer MEDICARE, BC, SELFPAY | PROVIDERS: PCP Family Medicine; Visit Provider Specialist | DX: G47.33 Obstructive sleep apnea (adult) (pediatric) (principal); G31.84 Mild cognitive impairment of uncertain or unknown etiology; G43.711 Chronic migraine without aura, intractable, with status migrainosus | CPT/HCPCS: 96116; 99215 ==

== ENCOUNTER → 2023-09-01 08:29 | Outpatient (BNVA) | payer MEDICARE, BC, SELFPAY | PROVIDERS: PCP Family Medicine; Visit Provider Specialist | DX: G47.33 Obstructive sleep apnea (adult) (pediatric) (principal); G31.84 Mild cognitive impairment of uncertain or unknown etiology; G43.711 Chronic migraine without aura, intractable, with status migrainosus | CPT/HCPCS: 36415; 62270; 82542; 82607; 99215 ==

== ENCOUNTER → 2023-12-29 07:53 | Outpatient (BNVA) | payer MEDICARE, BC, SELFPAY | PROVIDERS: PCP Family Medicine; Visit Provider Specialist | DX: G47.33 Obstructive sleep apnea (adult) (pediatric) (principal); G31.84 Mild cognitive impairment of uncertain or unknown etiology; G43.711 Chronic migraine without aura, intractable, with status migrainosus | CPT/HCPCS: 96116; 99214; 99215 ==

== ENCOUNTER → 2024-02-01 12:52 | Outpatient (BNVA) | payer MEDICARE, BC, SELFPAY | PROVIDERS: PCP Family Medicine; Visit Provider Internal Medicine | DX: R06.00 Dyspnea, unspecified (principal) | CPT/HCPCS: 99214 ==

== ENCOUNTER → 2024-05-13 10:57 | Outpatient (BNVA) | payer MEDICARE, BC, SELFPAY | PROVIDERS: PCP Family Medicine; Visit Provider Family Medicine | DX: Z13.6 Encounter for screening for cardiovascular disorders (principal); E53.8 Deficiency of other specified B group vitamins; E03.9 Hypothyroidism, unspecified; R53.83 Other fatigue; R42 Dizziness and giddiness; G47.33 Obstructive sleep apnea (adult) (pediatric) | CPT/HCPCS: 80053; 80061; 82607; 83735; 84443; 85025 ==

== ENCOUNTER → 2024-12-20 09:30 | Outpatient (BNVA) | payer MEDICARE, BC, SELFPAY | PROVIDERS: PCP Family Medicine; Visit Provider Family Medicine | DX: E53.8 Deficiency of other specified B group vitamins (principal); R39.15 Urgency of urination; G43.711 Chronic migraine without aura, intractable, with status migrainosus; R35.0 Frequency of micturition; R41.89 Other symptoms and signs involving cognitive functions and awareness; R06.00 Dyspnea, unspecified; G47.33 Obstructive sleep apnea (adult) (pediatric); R60.9 Edema, unspecified; E03.9 Hypothyroidism, unspecified | CPT/HCPCS: 80053; 81000; 82306; 82607; 83735; 84443; 85025 ==

== ENCOUNTER 2025-04-25 10:07 | Emergency (ER) | payer MEDICARE, BC, SELFPAY ==
[2025-04-25 10:11] VITALS: BP 168/92; PULSE 76; RESP 18; TEMP 36.6; O2SAT 98
--- OUTSIDE RECORDS SUMMARY | 2025-04-25 10:29 | XMS_ITS | Clinical Summary ---
Author Organization [facility] Address [address] 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 Gender Identity Not on file Sexual Orientation Not on file Plan of Treatment Upcoming Encounters Date Type Department Care Team (Late st Contact Info) Description 10/14/2025 10:00 AM CDT Office Visit [facility] [place] [address] [place] [address] Jesus Salmon MD [address] [place] [address] Health Maintenance Due Date Last Done Comments DTAP/TDAP/TD VACCINES (1 - Tdap) 1974 COLORECTAL SCREENING 2000 Colorectal Cancer Screening 2000 FIT-DNA Q 3 years 2000 FIT/FOBT Q 1 year 2000 Flex Sig/CT Colonography Q 5 years 2000 PNEUMOCOCCAL VACCINE 50+ YEARS (1 of 1 - PCV) 09/01/19 06 ZOSTER VACCINE (1 of 2) 2005 INFLUENZA VACCINE (#1) 2025 RSV VACCINE (60+ or ) (1 - 1-dose 75+ series) 2030 Insurance MEDICARE PART A AND B [facility]
--- NOTE | 2025-04-25 11:06 | ED_ITS ---
HPI - Headache 2 General: Chief Complaint: Headache Stated Complaint: Dizzy N/V Headache Time Seen by Provider: 04/25/25 11:02 History of Present Illness: 69-year-old man with a history of migrai ne headaches and obstructive sleep apnea, who presents to the emergency room with a migraine that has been persistent for couple of weeks. He says this has happened before where he will get a migraine and the actual headache is gone away but he cannot keep anything down. No abdominal pain. No diarrhea. His doctor did give him some Phenergan which has not helped. No altered mental status. No focal motor deficits. Related Data Previous Rx's ?Medication ?Instructions ?Recorded ketorolac 10 mg tablet 10 mg PO Q6H PRN pain 5 days #10 08/05/22 tabs scopolamine base 1 mg over 3 days 1 patch transdermal Q3D PRN nausea 02/15/23 transdermal patch and vomiting #10 ea doxycycline hyclate 100 mg tablet 100 mg PO BID URI 7 days #14 tabs 08/02/23 prednisone 20 mg tablet 20 mg PO DAILY 5 days #5 tab s 08/02/23 memantine 10 mg tablet 10 mg PO BID #60 tabs memantine 5 mg-10 mg tablets in a See Rx Instructions PO PER PKG DIR 01/09/24 dose pack (Namenda Titration Michael) #49 ea duloxetine 60 mg capsule,delayed 60 mg PO BID #180 cap s 06/10/24 release galantamine 8 mg tablet See Rx Instructions .Route 0 10/08/24 .COMPLEX #180 tabs auto cpap, with supplies #1 ea 12/20/24 rizatriptan 10 mg disintegrating See Rx Instructions . Route 12/31/24 tablet .COMPLEX #10 tabs omeprazole 40 mg capsule,delayed See Rx Instructions . Route 01/15/25 release .COMPLEX #30 caps scopolamine base 1 mg over 3 days 1 patch transdermal Q3D PRN nausea 03/13/25 transdermal patch and vomiting #10 ea zolmitriptan 5 mg nasal spray See Rx Instructions .Rou te 04/02/25 .COMPLEX #6 ea prochlorperazine maleate 5 mg 5 mg PO QID PRN nausea a nd 04/22/25 tablet (Compazine) vomiting/dizziness #30 tabs ondansetron 8 mg disintegrating 8 mg PO Q6H #14 tabs 1 tablet Allergies Allergy/AdvReac Type Severity Reaction Status Date / Time hydrocodone Allergy nausea Verified 04/22/25 11:35 Review of Systems 2 Narrative: Constitutional symptoms: Negative except as documented in HPI. Skin symptoms: Negative except as documented in HPI. Eye symptoms: Negative except as documented in HPI. ENMT symptoms: Negative except as documented in HPI. Respiratory symptoms: Negative except as documented in HPI. Cardiovascular symptoms: Negative except as documented in HPI. Gastrointestinal symptoms: Negative except as documented in HPI. Genitourinary symptoms: Negative except as documented in HPI. Musculoskeletal symptoms: Negative except as documented in HPI. Neurologic symptoms: Negative except as documented in HPI. Psychiatric symptoms: Negative except as documented in HPI. Endocrine symptoms: Negative except as documented in HPI. PFSH ED 2 PFSH: Medical History (Updated 04/25/25 @ 11:40 by Lilian Mcgowan MD) Muscle strain of left thigh Injury of upper leg Migraine Cognitive impairment Fatigue Social History Smoking and tobacco/nicotine status: never used tobacco/nicotine Alcohol intake: never Substance/Drug Use: never Physical Exam 2 Narrative: EXAM NARRATIVE: General: Alert, no acute distress. Skin: Warm, dry. Head: Normocephalic, atraumatic. Neck: Supple, trachea midline. Eye: Extraocular movements are intact. Ears, nose, mouth and throat: Tacky oral mucosa Cardiovascular: Regular, Normal peripheral perfusion. Respiratory: Lungs are clear to auscultation, respirations are non-labored, breath sounds are equal, Symmetrical chest wall expansion. Gastrointestinal: Soft, Nontender, Non distended Musculoskeletal: Normal ROM, no deformity. Neurological: Alert and oriented, No focal neurological deficit observed. Psychiatric: Cooperative, appropriate mood & affect. Course 2 Vital Signs: Vital signs: Vital Signs Temperature 97.9 F 04/25/25 10:11 Pulse Rate 76 04/25/25 10:11 Respiratory Rate 18 04/25/25 10:11 Blood Pressure 150/90 04/25/25 11:39 Pulse Oximetry 98 04/25/25 10:11 Oxygen Delivery Me thod Room Air 04/25/25 10:11 MDM - Headache Medical Decision Making Medical decision making: Differential diagnosis for this patient presenting with severe headache including but not limited to and based on the above HPI, review of systems and physical exam: Intracranial hemorrhage, stroke, migraine, cluster headache, infections such as influenza, covid Orders placed to evaluate differential diagnosis based on the above differential, HPI and physical exam. In this patient however this headache and vomiting are the same as previous headaches so not going to do any imaging today but will do some lab work to check for renal failure and leukocytosis. Anemia. Lab Review: Laboratory results were reviewed and interpreted by myself the emergency room physician. No leukocytosis. No anemia. No renal failure. Liver enzymes are normal. I reviewed the patient's medical record. Reexamination: Patient remained stable. No increased work of breathing. No altered mental status. No focal motor deficits. Assessment and plan: Migraine headache Dehydration - 50 mg IV Benadryl - 10 mg IV Reglan - 8 mg IV Zofran - 60 mg IV Norflex - 1 L normal saline bolus - Discharged home - Discussed plan with patient. Answered any questions. - Evaluation and treatment of this problem were appropriate in the emergency setting. Lab Data 04/25/25 11:15 04/25/25 11:15 Laboratory Results WBC 6.36 10^3/uL (3.29-11.43) 04/25/25 11:15 RBC 5.10 10^6/uL (3.85-5.65) 04/25/25 11:15 Hgb 15.40 g/dL (11.27-16.99) 04/25/25 11:15 Hct 44.5 % (37-53) 04/25/25 11:15 MCV 87.3 fl (82-101) 04/25/25 11:15 MCH 30.2 pg (27-33) 04/25/25 11:15 MCHC 34.6 g/dL (30-55) 04/25/25 11:15 RDW 12.3 % (12.1-15.1) 04/25/25 11:15 Plt Count 232 10^3/cmm (157-399) 04/25/25 11:15 MPV 10.2 fL (7.4-10.4) 04/25/25 11:15 Neut % (Auto) 60.7 % 04/25/25 11:15 Lymph % (Auto) 31.6 % 04/25/25 11:15 Yolo % (Auto) 6.3 % 04/25/25 11:15 Eos % (Auto) 0.9 % 04/25/25 11:15 Baso % (Auto) 0.3 % 04/25/25 11:15 Neut # (Auto) 3.86 10^3/uL (1.8-7.7) 04/25/25 11:15 Lymph # (Auto) 2.0 10^3/uL (0.8-4.8) 04/25/25 11:15 Yolo # (Auto) 0.4 10^3/uL (0.2-0.9) 04/25/25 11:15 Eos # (Auto) 0.1 10^3/uL (0.0-0.8) 04/25/25 11:15 Baso # (Auto) 0.0 10^3/uL (0.0-0.1) 04/25/25 11:15 Nucleated RBC % (auto) 0 % 04/25/25 11:15 Nucleated RBCs # 0.0 /100WBC 04/25/25 11:15 Sodium 136 mmol/L (136-145) 04/25/25 11:15 Potassium 4.2 mmol/L (3.5-5.1) 04/25/25 11:15 Chloride 100 mmol/L (98-107) 04/25/25 11:15 Carbon Dioxide 24 mmol/L (22-29) 04/25/25 11:15 Anion Gap 16.2 (5-19) 04/25/25 11:15 BUN 17 mg/dL (8-23) 04/25/25 11:15 Creatinine 1.0 mg/dL (0.7-1.2) 04/25/25 11:15 GFR Calculation 74.1 mL/min (90-130) L 04/25/25 11:15 Glucose 110 mg/dL (65-115) 04/25/25 11:15 Calculated Osmolality 284 mOsm/kg (285-295) L 04/25/25 11:15 Calcium 9.5 mg/dL (8.5-10.5) 04/25/25 11:15 Total Bilirubin 0.6 mg/dL (0.15-1.2) 04/25/25 11:15 AST 12 U/L (0-40) 04/25/25 11:15 ALT 14 U/L (0-41) 04/25/25 11:15 Alkaline Phosphatase 69 U/L (40-130) 04/25/25 11:15 Total Protein 7.3 g/dL (6.6-8.7) 04/25/25 11:15 Albumin 4.4 g/dL (3.5-5.2) 04/25/25 11:15 Globulin 2.9 g/dL (1.3-4.6) 04/25/25 11:15 No radiology studies performed this visit Discharge Plan Discharge Patient Disposition: Home Clinical Impression: Migraine, Dehydration Condition: Stable Prescriptions: New ondansetron 8 mg tablet,disintegrating 8 mg PO Q6H Qty: 14 0RF Rx Instructions: Take 1/2-1 tab every 6 hours as needed for nausea and vomiting No Action ketorolac 10 mg tablet 10 mg PO Q6H PRN (Reason: pain) 5 Days Qty: 10 1RF Rx Instructions: Take for headaches that are unrelieved with Zomig prednisone 20 mg tablet 20 mg PO DAILY 5 Days Qty: 5 0RF doxycycline hyclate 100 mg tablet 100 mg PO BID 7 Days Qty: 14 0RF prochlorperazine maleate [Compazine] 5 mg tablet 5 mg PO QID PRN (Reason: nausea and vomiting/dizziness) Qty: 30 0RF scopolamine base 1 mg over 3 days patch 3 day 1 patch transdermal Q3D PRN (Reason: nausea and vomiting) Qty: 10 1RF (DME) auto cpap, with supplies See Rx Instructions .Route .MEDSUPPLY Qty: 1 0RF Rx Instructions: 6-14 cm of H2O, use nightly for JOSEFA scopolamine base 1 mg over 3 days patch 3 day 1 patch transdermal Q3D PRN (Reason: nausea and vomiting) Qty: 10 0RF memantine 10 mg tablet 10 mg PO BID Qty: 60 5RF Rx Instructions: after starter pack memantine [Namenda Titration Michael] 5-10 mg tablets,dose pack See Rx Instructions PO PER PKG DIR Qty: 49 0RF Rx Instructions: PO PER PKG DIR duloxetine 60 mg capsule,delayed release(DR/EC) 60 mg PO BID Qty: 180 3RF galantamine 8 mg tablet See Rx Instructions .ROUTE .COMPLEX Qty: 180 3RF Dose Instruction: TAKE 1 TABLET BY MOUTH TWICE DAILY with morning and evening meals Rx Instructions: TAKE 1 TABLET BY MOUTH TWICE DAILY with morning and evening meals rizatriptan 10 mg tablet,disintegrating See Rx Instructions .ROUTE .COMPLEX Qty: 10 5RF Dose Instruction: DISSOLVE ONE TABLET BY MOUTH EVERY 2 HOURS NEEDED FOR MIGRAINE HEADACHE. DO NOT EXCEED THREE DOSES PER 24 HOURS Rx Instructions: DISSOLVE ONE TABLET BY MOUTH EVERY 2 HOURS NEEDED FOR MIGRAINE HEADACHE. DO NOT EXCEED THREE DOSES PER 24 HOURS omeprazole 40 mg capsule,delayed release(DR/EC) See Rx Instructions .ROUTE .COMPLEX Qty: 30 11RF Dose Instruction: TAKE ONE CAPSULE BY MOUTH EVERY DAY FOR stomach Rx Instructions: TAKE ONE CAPSULE BY MOUTH EVERY DAY FOR stomach zolmitriptan 5 mg spray,non-aerosol See Rx Instructions .ROUTE .COMPLEX Qty: 6 0RF Dose Instruction: USE ONE SPRAY EVERY 2 HOURS as needed for headache *max of TWO SPRAYS PER day* Rx Instructions: USE ONE SPRAY EVERY 2 HOURS as needed for headache *max of TWO SPRAYS PER day* Discharge Orders: Discharge ED (Routine); Ordered 04/25/25 Ordered By: Lilian Mcgowan Referrals: Chad Hunt DO [Primary Care Provider, Family Practice] Discharge Diet: Advance as tolerated Discharge Activity: Increase activity as tolerated Patient Instructions: Migraine Headache (ED), Opioid Safety, Pain Management, Patient Portal & Kam Instructions Activity Restrictions/Additional Instructions: Thank you for choosing [facility] for your healthcare needs today. You have been screened and evaluated and felt safe for discharge. Health conditions do change or evolve sometimes and as such it is important that you follow up with your Primary Doctor to be re checked, 3-5 days is a general good time frame for follow up. You are always welcome to return to the ED for re assessment if your symptoms are worsening or you have new concerns Print Language: Kinyarwanda Coding Level of Care Code ED Construction Project Administrator for Bojrn Brown
[2025-04-25 11:21] LABS: Hematocrit 44.5 % (37-53); Hemoglobin 15.40 g/dL (11.27-16.99); Mean Corpuscular HGB Conc 34.6 g/dL (30-55); Mean Corpuscular Hemoglobin 30.2 pg (27-33); Mean Corpuscular Volume 87.3 fl (82-101); Nucleated Red Blood Cells % 0 %; Platelet Count 232 10^3/cmm (157-399); Red Blood Count 5.10 10^6/uL (3.85-5.65); White Blood Count 6.36 10^3/uL (3.29-11.43)
[2025-04-25] MEDS: ondansetron 2 mg/ML SDV 2 mL 8 MG IVP (11:30)
[2025-04-25] MEDS: orphenadrine 30 mg/mL Inj 2 mL 60 MG IVP (11:32)
[2025-04-25] MEDS: diphenhydrAMINE 50 mg/mL SDV 1mL IVP (11:35)
[2025-04-25 11:36] LABS: Alanine Aminotransferase 14 U/L (0-41); Albumin Level 4.4 g/dL (3.5-5.2); Alkaline Phosphatase 69 U/L (40-130); Anion Gap 16.2 (5-19); Aspartate Amino Transferase 12 U/L (0-40); Blood Urea Nitrogen 17 mg/dL (8-23); Calcium 9.5 mg/dL (8.5-10.5); Carbon Dioxide 24 mmol/L (22-29); Chloride 100 mmol/L (98-107); Creatinine Clr Calc Pharmacy 74.5023; Globulin 2.9 g/dL (1.3-4.6); Glucose 110 mg/dL (65-115); Osmolality Calculated 284 mOsm/kg (285-295); Potassium 4.2 mmol/L (3.5-5.1); Sodium 136 mmol/L (136-145); Total Protein 7.3 g/dL (6.6-8.7)
[2025-04-25] MEDS: metoclopramide 5 mg/mL SDV 2 mL 10 MG IVP (11:36)
[2025-04-25 11:39] VITALS: BP 150/90
[2025-04-25 12:16] VITALS: BP 154/76; PULSE 66; RESP 16; O2SAT 97
== END 2025-04-25 12:18 | disposition home or self-care (01) ==
PROVIDERS: Emergency Provider Emergency Medicine; PCP Family Medicine
DX: G43.909 Migraine, unspecified, not intractable, without status migrainosus (principal); E86.0 Dehydration
CPT/HCPCS: 36415; 80053; 85025; 96361; 96374; 96375; 99284; J1100; J1200; J2360; J2405; J2765; J7030

== ENCOUNTER 2025-05-05 12:47 | Emergency (ER) | payer MEDICARE, BC, SELFPAY ==
--- OUTSIDE RECORDS SUMMARY | 2025-04-29 23:34 | XMS_ITS | Encounter Summary ---
Author Organization [facility] Address [address] [place] [address] Care Team Providers Care Integration Lead Name Role Phone Unavailable Primary Care Provider Unavailabl e Reason for Referral * Eval and Treat (5-7 Days) - Incomplete Specialty Diagnoses / Procedures Referred By Contac t Referred To Contact Diagnoses Vertigo Procedures IA OFFICE/OUTPATIENT ESTABLISHED MOD MDM 30 MIN IA OFFICE/OUTPATIENT NEW MODERATE MDM 45 MINUTES Joshua Cornell MD [address] [place] [phone] Phone: tel: fax: Referral ID Status Reason Start Date Expiration Date V isits Requested Visits Authorized [id number] Incomplete 05/02/2025 05/02/2026 1 1 * Eval and Treat (5-7 Days) - Authorized Specialty Diagnoses / Procedures Referred By Contac t Referred To Contact Diagnoses Lesion of parotid gland Procedures IA OFFICE/OUTPATIENT ESTABLISHED MOD MDM 30 MIN IA OFFICE/OUTPATIENT NEW MODERATE MDM 45 MINUTES Joshua Cornell MD [address] [place] [phone] Phone: tel: fax: Referral ID Status Reason Start Date Expiration Date V isits Requested Visits Authorized [id number] Authorized 05/02/2025 05/02/2026 1 1 * Eval and Treat (2-4 Days) - Open Specialty Diagnoses / Procedures Referred By Mya haley Referred To Contact Physical Therapy Diagnoses Benign paroxysmal positional vertigo of left ear Joshua Cornell MD [address] [phone] Phone: tel: fax: [facility] Physical Therapy Services [place] [address] [place] [address] Phone: tel: fax: Referral ID Status Reason Start Date Expiration Date Visits Re quested Visits Authorized [id number] Open 05/02/2025 05/02/2026 6 6 Reason for Visit * Reason Comments Vomiting Pt started getting a migraine and dizziness 2 weeks ago and started vomiting. Pt has also had intermittent dizzy spells as well. Pt was seen by his primary doc and the ER in [place] but has not had relief. Pt states the migraine has resolved but he is still vomiting and it's been 16 days. Pt vomits mainly when he is up and walking. Pt states the dizziness is better but still there some as well.. Dizziness * Auth/Cert (Routine) Specialty Diagnoses / Procedures Referred By Mya haley Referred To Contact Emergency Medicine [facility] Emergency Department [address] [place] [address] Phone: tel: fax: Referral ID Status Reason Start Date Expiration Date Visits Re quested Visits Authorized [id number] 1 1 Encounter Details Date Type Department Care Team (Latest Contact Info) Description 04/29/2025 11:34 PM CDT - 05/02/2025 3:45 PM CDT Hospital Encounter [facility] Medical Telemetry [address] [place] [phone] Dillon Dangelo MD [address] [place] [address] Joshua Cornell MD [address] [phone] Diogenes Bower MD [address] [place] [address] Benign paroxysmal positional vertigo of left ear Discharge Disposition: Home or Self Care Social History Tobacco Use Types Packs/Day Years Used Date Smoking Tobacco: Never Tobacco Cessation:Counseling Given: Not Answered Food Insecurity Answer Date Recorded Do you find you are eating l ess than you should because you can t pay for food? No 04/29/2025 Transportation Needs Answer Date Record ed Have you gone without health care because you didn t have a way to get there? Or worry about transportation for future doctor visits, picker medication, etc.? No 2024 Housing Stability Answer Date Recorded Do you worry you won t have a steady place to sleep or struggle to pay rent or mortgage? No 04/29/2025 Utility Needs Answer Date Recorded Do you have difficulty payin g for utility costs (electric, water or gas bills)? No 04/29/2025 Medication Needs Answer Date Recorded Have you skipped taking medi cation due to cost or worry you can t afford new medications? No 04/29/2025 Feeling Safe Answer Date Recorded Are you in a relationship wi th someone who hurts you emotionally and/or physically? No 04/29/2025 Food Insecurity Answer Date Recorded Patient needs follow up regardin 04/30/2025 Transportation Needs Answer Date Record ed Patient needs follow up regardin 04/30/2025 Utility Needs Answer Date Recorded Patient needs follow up regardin 04/30/2025 Sex and Gender Information Value Date Recorded Sex Assigned at Not on file Legal Sex Male 12:07 AM [employer] Gender Identity Not on file Sexual Orientation Not on file documented as of this encounter Last Filed Vital Signs Vital Sign Reading Time Taken Comments Blood Pressure 130/78 05/02/2025 11:37 AM CDT Pulse 82 05/02/2025 11:37 AM CDT Temperature 36.6 C (97.9 F) 05/02/2025 11:37 AM CDT Respiratory Rate 16 05/02/2025 11:3 7 AM CDT Oxygen Saturation 97% 05/02/2025 11: 37 AM CDT Inhaled Oxygen Concentration - - Weight 77.1 kg (169 lb 15.6 oz) 04/30/2025 7:48 AM CDT Height 177.8 cm (5' 10 ) 04/30/2025 7:48 AM CDT Body Mass Index 24.39 04/30/2025 7:48 AM CDT documented in this encounter Discharge Summaries * Joshua Cornell MD - 05/02/2025 1:05 PM CDT Images from the original note were not included. [facility] Hospitalist- Discharge Summary Ramón Michel 69 y.o. male 1955 CSN: [id number] Date of Admission: 04/29/2025 Date of Discharge: 05/02/2025 LOS: 1 day Discharging Physician: Joshua Cornell MD PCP: No primary care provider on file. Code Status at Discharge: Full Code Dispo: Home Abnormal Imaging: Follow up with PCP: Follow-up: You must follow up with No primary care provider on file. in 3-5 days Follow up with Consultants: With in PT in 1 weeks. Discharge Condition: improving Primary Discharge Diagnosis: Benign paroxysmal positional vertigo of left ear Other Active medical issues also addressed during this admission: Active Hospital Problems Diagnosis Benign paroxysmal positional vertigo of left ear Vertigo Intractable nausea and vomiting Dementia (CMS/HCC) Stress and adjustment reaction GERD (gastroesophageal reflux disease) Resolved Hospital Problems No resolved problems to display. HOSPITAL COURSE: Please see H and P for full details on admission, symptoms and initial care. 69-year-old man presented to the ER with intractable N/V. Reportedly developed a headache, returning from a cruise about a week ago, followed by N/V/vertigo. Gradually improved, now tolerating diet okay, no NV no headache, has some positional vertigo. PT eval done. Ok to DC home with OP vestibular rehab. Referral given. BPPV vs migraine: improved Neuro signed off MRI brain no acute infarct MRA venous: Asymmetric flow suspected from thready nondominant highness, otherwise no thrombosis. Ortho VS negative Stopped galantamine Decreased duloxetine per neuro OP PT f/u Has slight nasal congestion, saline spray added. Prn meclizine. Right Parotid gland lesion: incidentally noted on MRI c spine discussed with Advised OP f/u with ENT- referral given Calcified granuloma: On CXR OP follow-up PCP COMMUNICATION : No primary care provider on file. via [employer] communication MEDICATION CHANGES (significant): See below MEDICATION RECONCILIATION: Current and discharge medications reviewed and reconciled: Yes Consultants: None Procedures performed: DISCHARGE MEDICATIONS: Medication List PAUSE taking these medications galantamine 8 mg Extended Release 24 hour capsule Wait to take this until your doctor or other care provider tells you to start again. Commonly known as: RAZADYNE ER Take 8 mg by mouth daily. Refills: 0 memantine 5 mg Tablet Wait to take this until your doctor or other care provider tells you to start again. Commonly known as: NAMENDA Take 5 mg by mouth 2 times daily. Refills: 0 START taking these medications meclizine 25 mg tablet Commonly known as: ANTIVERT Take 1 Tablet (25 mg) by mouth 3 times daily as needed for Nausea. Signed by: Dr. Richardson Cornell Quantity: 20 Tablet Refills: 0 sodium chloride 0.65 % Aerosol, [place] Commonly known as: OCEAN Administer 2 Sprays in each nostril 4 times daily as needed for Congestion or Allergies. Signed by: Dr. Richardson Cornell Quantity: 200 mL Refills: 0 CHANGE how you take these medications DULoxetine 40 mg Capsule, Delayed Release(E.C.) What changed: medication strength how much to take Take 40 mg by mouth daily. Start taking on: May 03, 2025 Signed by: Dr. Richardson Cornell Quantity: 30 Capsule Refills: 0 CONTINUE taking these medications omeprazole 40 mg Capsule, Delayed Release(E.C.) Commonly known as: PriLOSEC Take 40 mg by mouth daily. Refills: 0 * ZOLMitriptan 5 mg Tablet, Rapid Dissolve Commonly known as: ZOMIG Place 5 mg inside cheek every 2 hours as needed for Migraine. may repeat in 2 hours; max dose 10mg in 24 hours Refills: 0 * Zomig [place], Non-Aerosol Administer 1 [place] in right nostril every 2 hours as needed for Migraine. may repeat in 2 hours; max dose 10mg in 24 hours Refills: 0 Generic drug: ZOLMitriptan * !!Potential duplicate medications found. Review medication list carefully. Where to Get Your Medications These medications were sent to [facility], [place] - [address] [facility] [place] [address] Hours: M-F [phone] Sat [phone] Sun [phone] DULoxetine 40 mg Capsule, Delayed Release(E.C.) meclizine 25 mg tablet sodium chloride 0.65 % Aerosol, [place] Future Appointments Date Time Provider Department Center 10/14/2025 10:00 AM Jesus Salmon MD [facility] Activity level: up as tolerated Diet: DIET GENERAL Effective Wound Care: Not Applicable DISCHARGE EXAM: BP 130/78 (BP Location: Left arm, Patient Position (BP): Supine) Pulse 82 Temp 97.9 ??F (36.6 ??C) (Temporal) Resp 16 Ht 5' 10 (1.778 m) Wt 77.1 kg (169 lb 15.6 oz) SpO2 97% BMI 24.39 kg/m?? Last documented weight: Weight: 77.1 kg (169 lb 15.6 oz) (04/30/25 0748) EXAM: General: seems comfortable, no distress. Lungs: breathing non labored, clear to auscultation bilaterally Heart: normal rate, regular rhythm Abdomen: Soft, non-tender. Non distended. Neurologic: awake, alert. moving all limbs, following simple commands. Extremities: no significant LE edema. Home Healthcare Is this patient being discharged with Home Health? No Total time spent on discharge services today including examining and educating the patient and available family members, writing prescriptions and reviewing the discharge medication list, documentingthis discharge summary and coordinating outpatient care and follow up required >30 minutes. documented in this encounter Discharge Instructions * Discharge Instructions* Joshua Cornell MD - 05/02/2025 1:04 PM CDT Follow up with primary care doctor in 3-5 days of discharge. Discuss resuming your memantine/galantamine gradually. You have been given referral to physical therapy on discharge. You were incidentally noted to have a spot on your right parotid gland. You have been given referral to ENT. Please make sure to follow up with them as soon as possible. You were incidentally noted to have a calcified granuloma on your chest x ray. Follow up with pcp for this. * Attachments The following attachments cannot be sent through Care Everywhere. * Vertigo (Turkmen) documented in this encounter Medications at Time of Discharge DULoxetine 40 mg Capsule, Delayed Release(E.C.) Take 40 mg by mouth daily. 30 Capsule 05/03/2025 meclizine (ANTIVERT) 25 mg tablet Take 1 Tablet (25 mg) by mouth 3 times daily as needed for Nausea. 20 Tablet 05/02/2025 sodium chloride (OCEAN) 0.65 % Aerosol, [place] Administer 2 Sprays in each nostril 4 times daily as needed for Congestion or Allergies. 200 mL 05/02/2025 galantamine (RAZADYNE ER) 8 mg Extended Release 24 hour capsule Take 8 mg by mouth daily. omeprazole (PriLOSEC) 40 mg Capsule, Delayed Release(E.C.) Take 40 mg by mouth daily. ZOLMitriptan (ZOMIG) 5 mg Tablet, Rapid Dissolve Place 5 mg inside cheek every 2 hours as needed for Migraine. may repeat in 2 hours; max dose 10mg in 24 hours memantine (NAMENDA) 5 mg Tablet Take 5 mg by mouth 2 times daily. ZOLMitriptan (Zomig) [place], Non-Aerosol Administer 1 [place] in right nostril every 2 hours as needed for Migraine. may repeat in 2 hours; max dose 10mg in 24 hours documented as of this encounter Progress Notes * Lashell Lovell RN - 05/02/2025 3:34 PM CDT Ramón Michel will be discharged via ambulatory to home. Ramón Michel is accompanied by spouse and will be transported via private vehicle. * Chio Ross, Physical Therapist - 05/02/2025 11:48 AM CDT [facility]. Acute Physical Therapy Vestibular Evaluation 05/02/2025 Room: [address] [place] [address] Name: Ramón Michel Age: 69 y.o. Date of : 1955 Insurance: Payor: MEDICARE / Plan: MEDICARE PART A AND B / Product Type: Medicare / Patient Class: Inpatient Onset of illness/injury or date of surgery: 04/29/2025 Subjective Information/History Subjective Information Provided By: Patient Prior level of Function: patient ambulates without an assistive device indep community distances. He is retired and does drive himself normally. No falls prior to last week he had two falls with his vertigo Has your dizziness/vertigo provoked a fall? Fell back in the bed and into the chair Home Environment: 2-Story home Can live on one level 2 steps to enter the home setting Available Adaptive Equipment: None Assistance available: lives with spouse who can provide 24/ care support. Daughter in the area whois a dental hygentist Patient/Family Goals Statement: I just wonder if this parotid tumor is the cause of all of this Vestibular Subjective Have you had a concussion/whiplash/head injury in the past? No Do you normally wear glasses or contacts? Yes last exam was a couple of years ago has had cataracts removed on the left side Do you have hearing loss? Have you ever had ear surgery or follow regularly with an ENT physician? Reports he feels like his hearing loss bilateral no audiology testing does not have hearing aides, does not follow with ENT upon admission but has new parotid tumor and will have referral to ENT to follow up on care. He did see ENT over 20 years ago for BPPV Do you experience tinnitus (ringing in your ears)? No sometimes feels like he has water running down the right ear but nothing is there when he checksit. Have you had any recent medication changes? Are you taking meclizine? Yes scopolamine patch took a couple of weeks while he was on a cruise normally does not need has used in the past on a cruise, flew to destination for vacation. . He has had meclizine since his hospitalization but not at baseline. Have you ever been treated by a PT or specialist for vertigo/dizziness? Yes over 20 years ago he saw and ENT 1x and describes BPPV type positions to clear up his vertigo it has not occurred since then Onset of dizziness: 04/14/25 Migraine started that day took his medication for that, the dizziness would still be provoked by attempts get upright and mobilize. How long does dizziness last?: short episodes less than 60 seconds. Would you describe your dizziness as if the room is spinning? Yes Is your dizziness/vertigo provoked by: Looking up: No Quick head turns: No Rolling in bed: Yes initially but not today Bending Over: Yes Pain: Refer to Doc Flowsheet for documented pain levels. Consent To Treatment Given By: Patient and Nurse Objective Information/Examination Muscle Tone: Normal Coordination: Normal Sensation: Intact to light touch ROM: Right UE: Active: WNL Left UE: Active: WNL Right LE: Active: WNL Left LE: Active: WNL Strength: Right UE: 5/5. Left UE: 5/5. Right LE: 5/5. Left LE: 5/5. Functional Mobility: Rolling: Independent Scooting: Independent Supine to sit: Independent Sit to supine: Independent Sit to stand: Independent Bed to chair: Independent Gait Training: patient ambulates without an assistive device in the hallway with mild pathway deviation to the left side no loss of balance, slower guarded pace with process. Reports I just know I feel off I guess that sounds weird, but I am off Stair Trainin steps with Independent. Handrails: left Safety Awareness Orientation: Person, Place, Date, and Situation Command Following: good Safety Awareness: Good Precautions Patient Precautions: Fall Risk Bracing/Orthotics: none Weight Bearing: No Restrictions Vitals Patient on room air Vital signs stable throughout session Orthostatic Assessment: Supine: HR 85 BP 128/73 Seated: HR 89 BP 139/71 Standing: HR 103 BP 151/86 Vestibular/Balance Examination Visual Analog Scale dizziness rating 0/10 prior to session 8/10 post session Dynamic Gait Index Gait Level Surface: (2) - Mild Impairment: walks 20', uses AD, slower speed, mild gait deviations Change in Gait Speed: (2) - Mild Impairment: Is able to change speed but demonstrates mild gait deviations, or no gait deviations but unable to achieve a significant change in velocity, or uses an AD Gait with Horizontal Head Turns: (2) - Mild Impairment: Performs head turns smoothly with slight change in gait velocity I.e. minor disruption to smooth gait path or uses AD Gait with Vertical Head Turns: (2) - Mild Impairment: Performs head turns smoothly with slight change in gait velocity I.e. minor disruption to smooth gait path or uses AD Gait and Pivot Turn: (2) - Mild Impairment: Pivot turns safely in > 3 seconds and stops with no loss of balance Step Over Obstacle: (3) - Normal: Is able to step over the box without changing gait speed, no evidence of imbalance Step Around Obstacles: (3) - Normal: Is able to walk around cones safely without changing gait speed; no evidence of imbalance Steps: (2) - Mild Impairment: Alternating feet, must use rail Total Score: 18/24, Interpretation: <20/24 = Predictive of falls in the elderly, >22/24 = Safe ambulator Balance: Feet together and eyes closed: indep Feet together and eyes open: mild sway Back walking drifts to left with subtle imbalance with process Sidestepping bilateral indep Picks up cone off the floor indep Based on objective testing above the patient is considered a fall risk. Cervical Clearance Cervical Range of Motion: normal Vertebral Artery Screening Test or Documented Doppler Results: Yes cleared for testing Oculomotor Exam Visual Assessment Visual Field Screen intact in all planes: normal Smooth Pursuit Tracking (double H): normal Nystagmus present at rest: No Positional Testing Test Nystagmus Observed Post Maneuver Symptoms Interpretation Right [place] Hallpike no unchanged Left [place] Hallpike yes increased Nystagmus moderate lasting over 35 seconds Right Charles Maneuver yes unchanged Left Charles Maneuver yes increased Nystagmus present with positional changes Head Shake Test n/a [facility] AM-PAC Basic Mobility How much help from another person does the patient currently need? Score 1. Turning from your back to your side while in a flat bed without using bedrails? 4 - None (independent) 2. Moving from lying on your back to sitting on the side of a flat bed without using bedrails? 4 - None (independent) 3. Moving to and from a bed to a chair (including a wheelchair)? 4 - None (independent) 4. Standing up from a chair using your arms (e.g., wheelchair, or bedside chair)? 4 - None (independent) 5. Walking in hospital room? 4 - None (independent) 6. Climbing 3-5 steps with a railing? 4 - None (independent) Total score 23/24 0-16 - indicates likely facility discharge 17-24 indicates likely community discharge * scores determined based on patient report, observation or professional expertise Assessment/Plan Ramón Michel is a 69 y.o. male is referred for physical therapy. 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 He was mildly nauseatedfollowing session as a result of the treatment and findings. He is not presenting with symptoms on the right side but does have an underlying parotid tumor that he will be referred to follow up with ENT post discharge from the acute hospital. Patient and spouse have multiple questions about the tumor and are anxious to have consult. Patient responded well to the BPPV treatment but will benefit from follow up with PT OP services who can continue BPPV training/treatment. They are from the [facility] and initially wanted to have treatment back in their area then decided it might be better to follow back up in [place]. Advised if the did f/u in their home town to see if they could getin sooner rather than later, and have a copy of the acute PT evaluation to assist with continuity of care support. Spoke with physician by phone and advised of above findings. . Patient is currently functioning near his prior level of function. Plan will include no further skilled PT in the acute care setting will benefit from f/o in OP vestibular clinic. PT Evaluation: low complexity Recommendations Evaluation only, no further acute PT services needed (Completed order) d/c home today Functional Prognosis: Based on prior level of function and deficits, anticipate good. Based on PT assessment of and/or progress with physical function, AM-PAC Basic Mobility score, potential for improvement, available home support, participation in therapeutic intervention, tolerance for activity, and safety , anticipated discharge disposition, once medically ready: Home with assistance;Home with outpatient PT (vestibular rehab) (05/02/25 1141). Will require Amb. Referral to Physical Therapy ([id number]) for outpatient therapy. Vestibular OP clinic. * The final discharge location is determined through physician, case management, and patient/caregiver input along with insurance authorization of skilled services when appropriate Plan of care and/or discharge recommendations shared with: Patient, Family, Panelboard Operator, and Nurse Referral to Outpatient Physical Therapy Vestibular Fall Balance Clinic is recommended. PT Recommended DME: No new DME recommended (05/02/25 1149). Daily activity recommendations: Ambulate to bathroom with staff, Up in chair for meals, and Ambulation with nursing three times daily Recommendations for referral to another service: none Education/Training Provided Additional education provided: Daily activity with nursing staff, post BPPV instructions, vestibular home program , and outpatient therapy referral Additional treatment provided this session: extensive education on BPPV provided with patient and family present at bedside. HEP provided with left BPPV maneuvers and follow up treatment Learner, method of education, and response to learning listed in Education tab in Epic. Disposition At start of session, patient found lying in bed At end of session, patient left seated in chair, call light in reach, phone in reach, spouse present in room, and staff notified of patient's location Current Diagnoses/Past Medical History Pertinent diagnoses and past medical history related to this hospital stay are present in physicianH&P and physician daily notes. Prior to PT session a thorough chart review was completed including prior PT notes as applicable. Further treatment notes and therapeutic goals can be found in Care Plan Notes. If the patient discharges from the facility before another therapy visit, this shall serve as the therapy discharge summary. Thank you for this referral, Chio Ross, Physical Therapist * Joshua Cornell MD - 05/01/2025 2:14 PM CDT Images from the original note were not included. [facility] work [facility] Hospitalist/Hospital Medicine Progress Note LOS: LOS: 0 days Room/Bed: 7263/01 Patient name: Ramón Michel Date of : 1955 HOSPITAL COURSE SUMMARY 69-year-old man presented to the ER with intractable N/V. Reportedly developed a headache, returning from a cruise about a week ago, followed by N/V/vertigo. 05/01: states feels much better, ate solid food okay Consultants: None SUBJECTIVE: Earlier in AM : pt reports No NV, and feels much better. Checked back later per nurse no NV but got a little dizzy when laid in bed after walking more hesitant in taking patient home Overall they are not sure of how much improvement they are feeling. OBJECTIVE: Temp (24hrs), Av ??F (36.7 ??C), Min:97.5 ??F (36.4 ??C), Max:98.7 ??F (37.1 ??C) BP 138/78 (BP Location: Left arm, Patient Position (BP): Supine) Pulse 81 Temp 98.6 ??F (37 ??C) (Temporal) Resp 19 Ht 5' 10 (1.778 m) Wt 77.1 kg (169 lb 15.6 oz) SpO2 97% BMI 24.39 kg/m?? Intake/Output Summary (Last 24 hours) at 05/01/2025 1414 Last data filed at 05/01/2025 1245 Gross per 24 hour Intake 1006 ml Output -- Net 1006 ml Last documented weight: Weight: 77.1 kg (169 lb 15.6 oz) (04/30/25 6448) EXAM: General: seems comfortable, no distress. Lungs: breathing non labored, clear to auscultation bilaterally Heart: normal rate, regular rhythm Abdomen: Soft, non-tender. Non distended. Neurologic: awake, alert. moving all limbs, following simple commands. Extremities: no significant LE edema. LABORATORY: Recent Labs 04/29/252116 WBC 10.7 HGB 16.0 HCT 47.1 PLT 291 Recent Labs 04/29/25211605/01/25 0124 NA 138 138 K 4.1 4.0 CL 99 105 CO2 24 23 CA 10.1 9.0 BUN 19 16 CREAT 1.19* 1.14 GLUCOSE 109* 95 Recent Labs 04/29/252116 TOTALPROTEIN 7.8 ALBUMIN 4.5 BILITOTAL 0.6 ALKPHOS 66 AST 12 ALT 12 No results for input(s): INR , PT in the last 72 hours. Invalid input(s): PTT Recent Labs 04/29/25211604/29/25 2348 BASETROP <6 -- 2HRTROP -- <6 Diagnostic testing: Reports reviewed. Medications reviewed by me. Primary Discharge Diagnosis: Intractable nausea and vomiting Other Active medical issues also addressed during this admission: Active Hospital Problems Diagnosis Intractable nausea and vomiting Dementia (CMS/HCC) Stress and adjustment reaction GERD (gastroesophageal reflux disease) Resolved Hospital Problems No resolved problems to display. ASSESSMENT AND PLAN: Intractable nausea/vomiting-positional, resolved Vertigo: improved but present. CT head negative MRI brain no acute infarct MRA venous: Asymmetric flow suspected from thready nondominant highness, otherwise no thrombosis. Neurology eval done- MRI no stroke, no spinal stenosis. Stopped galantamine Decreased duloxetine On a scopolamine patch, PPI as needed antiemetics Prn meclizine- repeat today Neuro will follow Check ortho VS PT consult for vestibular rehab/BPPV assessment Right Parotid gland lesion: incidentally noted on MRI c spine discussed with Advised OP f/u with ENT Calcified granuloma: On CXR OP follow-up Dementia: Continue galantamine Mood disorder: Continue duloxetine. No results for input(s): GLUCPOC in the last 72 hours. DVT prevention: lovenox Outpatient follow up: pcp ENT Anticipated Disposition: home Timeframe: tomorrow pending PT eval improved symptoms Code status: Full Code Joshua Cornell MD 05/01/2025, 2:14 PM Winter Sports Manager completed using [employer] Speaking Software. Winter [employer] Manager variances may occur. Effort has been made to assure the accuracy of damascener. Any obvious errors or omissions should be clarified with the author. * Armando Galvan NP - 05/01/2025 2:08 PM CDT NEUROLOGY PROGRESS NOTE 69 y.o. patient admitted 04/29/2025 with Intractable nausea and vomiting. INTERIM HISTORY: 05/01/2025 Symptoms improved -only minor nausea now No new neurologic symptoms BACKGROUND: Ramón Michel is a 69 y.o. male with a longstanding history of migraines since he was a child, consisting of 1-4 severe headaches occurring per month. Headaches are typically pulsatile, occurring behind the eyes and radiate to the back of the neck, worse on the right than the left, and sensitive to light and sound. He also has severe nausea and vomiting when he has headaches. He has had visual auras in the past, as well as occasional mild dizziness, but he has never had severe dizziness that he describes currently. Headaches typically last 1 to 4 days, and he takes Zomig both nasally and for about dissolving tablet under his tongue. 2 weeks ago he developed his typical severe headache which lasted approximately 2 days, and was accompanied by severe nausea and vomiting. The headache resolved, however his nausea and vomiting did not. The vomiting has continued for the past 2 weeks on a daily basis, every time he attempts to stand up. It is temporarily abated by lying still. He also notes dizziness/vertigo, described as a senseof room spinning, provoked by turning over in bed. He is followed by a neurologist and is taking galantamine for possible early dementia. Objective: BP 138/78 (BP Location: Left arm, Patient Position (BP): Supine) Pulse 81 Temp 98.6 ??F (37 ??C) (Temporal) Resp 19 Ht 5' 10 (1.778 m) Wt 77.1 kg (169 lb 15.6 oz) SpO2 97% BMI 24.39 kg/m?? Intake/Output 04/30/25 0700 - 05/01/25 0659 05/01/25 07 - 05/02/25 0659 Total Total Intake P.O. -- 650 650 356 -- 356 P.O. (mL) -- 650 650 356 -- 356 Total Intake -- 650 650 356 -- 356 Output Urine -- -- -- -- -- -- Unmeasured Void -- 2 x 2 x -- -- -- Total Output -- -- -- -- -- -- Net I/O -- 209 650 356 -- 356 Review of Systems Review of Systems Respiratory: Negative. Cardiovascular: Negative. Gastrointestinal: Positive for nausea. Negative for vomiting. Neurological: Negative. MEDICATIONS Reviewed the medication list and time of administration per EHR synopsis section. DATA: The range of BP in the last 24 hours is: BP: (111-146)/(66-78) Temp (24hrs), Av ??F (36.7 ??C), Min:97.5 ??F (36.4 ??C), Max:98.7 ??F (37.1 ??C) Vitals With Comments 05/01/2025 1152 05/01/2025 0716 05/01/2025 0434 05/01/2025 0114 BP: 138/78 131/74 111/66 119/69 Pulse: 81 70 66 70 Resp: 19 16 16 16 Temp: 98.6 ??F (37 ??C) 97.5 ??F (36.4 ??C) 97.5 ??F (36.4 ??C) 97.9 ??F (36.6 ??C) Temp src: Temporal Temporal Temporal Temporal SpO2: 97 % 95 % 96 % 95 % Intake/Output Summary (Last 24 hours) at 05/01/2025 1408 Last data filed at 05/01/2025 1245 Gross per 24 hour Intake 1006 ml Output -- Net 1006 ml EXAMINATION General: NAD, pleasant, cooperative CVS: RRR, no carotid bruit. Chest: No signs of resp distress, clear breath sounds Abdomen: Soft, NTTP Extremities: no edema or cyanosis Neuro: MENTAL STATUS: AAOx3, attentive, memory intact, fund of knowledge appropriate LANG/SPEECH: Naming and repetition intact, fluent, follows commands CRANIAL NERVES: II: Pupils equal and reactive, no RAPD, no VF deficits III, IV, : EOM intact, no gaze preference or deviation, no nystagmus. V: normal sensation in V1, V2, and V3 segments bilaterally VII: no asymmetry, no nasolabial fold flattening Cranial nerves VIII to XII are normal MOTOR: 5/5 in both upper and lower extremities SENSORY:Normal COORD: Normal finger to nose, no tremor, no dysmetria GAIT: Normal; patient able to tip-toe, heel-walk. Data: IMAGING - Images were reviewed- Labs - reviewed IMPRESSION: 69 y.o.-year-old male patient with: - intractable nausea and vomiting following migraine - TORREZ resolved but N/V has persisted; improved this am and no new neurologic symptoms. MRI without acute pathology. Symptoms could represent prolonged migrainous phenomena but could also be medication related. Galantamine has history of cause suchsymptoms in some individuals and may increase as dose is increased. Symptoms improved as medicationheld and antiemetics have been used. - Lower ext spasticity noted incidentally - MRI spine without central canal stenosis; This can be followed up in OP neurology clinic PLAN: Continue medical management Holding galantamine - may consider restarting at lower dose with slower titration in OP clinic Cymbalta reduced to 40mg daily - continue this dose for now Nothing further to add to acute neurologic care -Will no longer follow with daily rounding visits but available as needed -Please call if further assistance is needed Communication: Plan of care was communicated with the pt and family at bedside, all questions were answered. Armando Galvan DNP, SUGAR CONTROLLER-C, AGACNP-BC, SCRN, CNRN Nurse Practitioner - [facility] [place], [place] Cosigned by Bg Frank MD at 05/01/2025 7:17 PM CDT * Joshua Cornell MD - 04/30/2025 7:43 AM CDT 69-year-old man presented to the ER with intractable N/V. Reportedly developed a headache, returning from a cruise about a week ago, followed by N/V/vertigo. Intractable nausea/vomiting-positional CT head negative MRI brain no acute infarct MRA venous: Asymmetric flow suspected from thready nondominant highness, otherwise no thrombosis. On a scopolamine patch, PPI as needed antiemetics Neurology consulted from ER-recommendations pending On IV fluids Still awaiting neuro: will call again Added meclizine as pt still symptomatic Calcified granuloma: On CXR OP follow-up Dementia: Continue galantamine Mood disorder: Continue duloxetine. * Robert Yadav PHARMACIST - 04/30/2025 1:33 AM CDT RX ANTICOAG MONITORING ORDERS Pharmacy to order, review, and report clinically significant changes in lab per [facility] Anticoagulation Protocol as follows: Orders for dosing changes and follow-up labs will be signed ???Per Protocol?? in Epic. The name ofthe provider signed on the follow-up orders for cosignature will be assigned as follows: Orders placed by members of the Runner On or Hospitalist physician groups: If the original ordering provider is no longer the attending physician for the patient, responsibility for cosignature of the follow-up medication orders and labs will transfer from the original ordering provider to the current attending physician. Orders placed by any other provider: Responsibility for cosignature of the follow-up medication orders and labs will remain with the original ordering provider of the anticoagulant order. Pharmacy will order appropriate labs as indicated by the [facility] Anticoagulation Monitoring policy located on [facility] intranet, unless already ordered. The medications that will be monitored include (but are not limited to): Low molecular weight heparin, heparin, and fondaparinux Direct Thrombin Inhibiors (argatroban, bivalirudin dabigatran lepirudin) Warfarin Direct oral anticoagulants (rivaroxaban, apixaban, edoxaban) Pharmacy will order labs for patients not on a heparin protocol, warfarin protocol, or anticoagulant protocol. Nursing to order labs required as indicated by those protocols. This policy is in compliance with the [employer] National Patient Safety Goal 3E and authorized by the [facility] Pharmacy and Therapeutics Committee. Cosigned by Diogenes Bower MD at 04/30/2025 3:51 AM CDT documented in this encounter H&P Notes * Diogenes Bower MD - 04/30/2025 1:14 AM CDT HISTORY OF PRESENT ILLNESS Ramón Michel is a 69 y.o. male admitted with intractable nausea and vomiting on 04/29/2025 Subjective HPI Mr. Michel is a 69 year old with mild dementia, GERD and chronic stress. He presents to the ER with intractable nausea and vomiting. A couple of weeks ago he went on a cruise and got home about a weekago. On returning home he developed a headache that was a typical headache for him. He also developed some nausea and vomiting along with the headache which is also typical. However after the headache resolved, the nausea and vomiting has persisted. He also had an episode of vertigo. Currently boththe headache and vertigo have resolved, but every time he tries to stand he has a recurrence of thenausea. REVIEW OF SYSTEMS Review of Systems Constitutional: Negative for fatigue, fever and unexpected weight change. HENT: Negative for congestion, hearing loss, postnasal drip, rhinorrhea and sinus pressure. Eyes: Negative for pain and visual disturbance. Respiratory: Negative for cough, chest tightness, shortness of breath and wheezing. Cardiovascular: Negative for chest pain and palpitations. Gastrointestinal: Positive for nausea and vomiting. Negative for abdominal pain. Musculoskeletal: Negative for arthralgias and myalgias. Skin: Negative for rash. Neurological: Positive for dizziness and headaches. HISTORY REVIEW I have reviewed and updated all historical information Objective PHYSICAL EXAM Last Vitals: BP (!) 141/74 Pulse 71 Temp 98.1 ??F (36.7 ??C) (Oral) Resp 14 Ht 5' 10 (1.778 m) Wt 77.1 kg (170 lb) SpO2 96% BMI 24.39 kg/m?? Physical Exam HENT: Head: Normocephalic and atraumatic. Right Ear: External ear normal. Left Ear: External ear normal. Eyes: Conjunctiva/sclera: Conjunctivae normal. Pupils: Pupils are equal, round, and reactive to light. Cardiovascular: Rate and Rhythm: Normal rate and regular rhythm. Heart sounds: Normal heart sounds. Pulmonary: Effort: Pulmonary effort is normal. Breath sounds: Normal breath sounds. Abdominal: General: Bowel sounds are normal. Palpations: Abdomen is soft. Skin: General: Skin is warm and dry. Neurological: Mental Status: He is alert and oriented to person, place, and time. Comments: Neuro exam deferred. Movement causes nausea so patient preference is to defer the neuro exam. See exam in ER physican note. Psychiatric: Mood and Affect: Mood normal. DIAGNOSTICS I have reviewed all of the patient's diagnostics. Assessment ASSESSMENT/PLAN: Principal Problem: Intractable nausea and vomiting Neurology has been consulted and is managing the headache, and vertigo. Plan for observation for management of the intractable nausea and vomiting. Will begin a scopolamine patch with as needed Zofran and Compazine. Advance diet as tolerated. Will give a single dose of lorazepam now. Active Problems: Dementia (CMS/HCC) Continue galantamine. Stress and adjustment reaction Continue duloxetine. GERD (gastroesophageal reflux disease) Continue omeprazole as Protonix. Code Status: Full Code Admission Status: He will be observation for nausea control. Diet: clear liquids, advance as tolerated. DVT prophylaxis: Lovenox Time Spent on admission 60 minutes. documented in this encounter Consult Notes * Jose Alejandro Almanza MD - 04/30/2025 3:51 PM CDT Consultation requested by Dr. Rodriguez ref. provider found children's minister: No primary care provider on file. Reason for consult: Intractable nausea vomiting HPI Ramón Michel is a 69 y.o. male with a longstanding history of migraines since he was a child, consisting of 1-4 severe headaches occurring per month. Headaches are typically pulsatile, occurring behind the eyes and radiate to the back of the neck, worse on the right than the left, and sensitive to light and sound. He also has severe nausea and vomiting when he has headaches. He has had visual auras in the past, as well as occasional mild dizziness, but he has never had severe dizziness that he describes currently. Headaches typically last 1 to 4 days, and he takes Zomig both nasally and for about dissolving tablet under his tongue. 2 weeks ago he developed his typical severe headache which lasted approximately 2 days, and was accompanied by severe nausea and vomiting. The headache resolved, however his nausea and vomiting did not. The vomiting has continued for the past 2 weeks on a daily basis, every time he attempts to stand up. It is temporarily abated by lying still. He also notes dizziness/vertigo, described as a senseof room spinning, provoked by turning over in bed. He is followed by a neurologist and is taking galantamine for possible early dementia. Past medical history: No past medical history on file. No past surgical history on file. ROS: Constitutional: denied fever, chill, weight changes. HEENT: No double vision, blurry vision, or speech/swallow problems. hearing loss, headache. Cardio: No chest pain, dyspnea on exertion, pedal edema, orthopnea. Pulmonary: No wheezing, cough, short of breath. Gastrointestinal: As per HPI Urinary: No dysuria, hematuria, urinary incontinence. Skeletalmuscular: No joint pain Neurological: As per HPI Psychiatric: No depression, anxiety, mood swings. 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 Visual barragan intact. II Fundoscopic Examination: Not examined III, IV, : EOMI V: Facial sensation intact. VII: Face is strong VIII: Hearing intact to voice IX, X: Palate rises symmetrically. XI: Normal sternocleidomastoid and trapezii bulk, tone and strength. XII: Tongue has normal bulk and movement. Motor Abnormal Movements: None Spontaneous Muscle Activity: no fasciculations. Tone: normal at all extremities Strength: 5/5 at all extremities. Reflexes -2/4 in the bilateral upper extremities, 3/4 patellar, 4/4 ankle with sustained clonus, aswell as bilateral upgoing toes. Sensory Normal to LT and PP at all extremities. Coordination Finger - nose - finger: normal Gait Unable to perform due to acute illness. Reviewed the test and lab result: MRI of the brain: No acute infarct. Minimal nonspecific white matter disease. MR venogram: Asymmetric decreased flow void seen within the left transverse sinus is nonspecific but suspected to represent a thready nondominant sinus. Otherwise no dural sinus venous thrombosis is seen. A/P: Acute persistent nausea vomiting, occurring in the context of atypical migraine 2 weeks ago. However, the nausea vomiting has persisted despite resolution of the headache, and he has also developed new onset intermittent vertigo. The vertigo has also resolved, but the nausea and vomiting is persisting. Etiology unclear. Each of above symptoms is potentially due to migrainous phenomena. However, galantamine and Cymbalta are both associated with severe nausea. Recommend stopping galantamine and reducing Cymbalta to 40 mg daily. No evidence of fever, meningismus, or persistent headache, so at this time we can hold off on lumbar puncture. If the above measures are unsuccessful, consider GI evalu ation. Of note, the patient has bilateral lower extremity spasticity of unknown etiology. Will add MRI of the C/T-spine without contrast. PLAN/RECOMMENDATION MRI brain/MR venogram unremarkable Add MRI of the C/T-spine Reduce Cymbalta to 40 mg daily, and hold galantamine for now Continue antiemetics, consider Compazine as that can often be particularly useful with migraine Neurology will continue to follow. Allergies: Hydrocodone Current Facility-Administered Medications Medication Dose Route Frequency Provider Last Rate Last Admin [COMPLETED] sodium chloride 0.9 % bolus solution 1,000 mL 1,000 mL IV ONE time only Govind Dangelo MD Stopped at 04/30/25 0114 sodium chloride 0.9 % infusion IV continuous Dillon Dangelo MD 100 mL/hr at 04/30/25 1550 New Bag at 04/30/25 1550 pantoprazole (PROTONIX) tablet 40 mg 40 mg Oral daily BEFORE breakfast Diogenes Bower MD 40 mg at 04/30/25 0826 scopolamine (TRANSDERM-SCOP) 1 mg/72 hr transdermal patch 1 Patch 1 Patch Transdermal every 72 hours Diogenes Bower MD 1 Patch at 04/30/25 0201 [COMPLETED] LORazepam (ATIVAN) 2 mg/mL injection 0.5 mg 0.5 mg IV ONE time only Diogenes Bower MD 0.5 mg at 04/30/25 0140 sodium chloride flush injection 10 mL 10 mL IV every 12 hours (2 times daily) Diogenes Bower MD 10mL at 04/30/25 0130 sodium chloride flush injection 10 mL 10 mL IV see admin instructions Diogenes Bower MD sodium chloride 0.9 % flush bag 25 mL 25 mL IV see admin instructions Diogenes Bower MD dextrose 5 % in water 250 mL flush bag 25 mL 25 mL IV see admin instructions Diogenes Bower MD naloxone (NARCAN) 0.4 mg/mL injection 0.1-0.4 mg 0.1-0.4 mg IV see admin instructions Diogenes Bower MD acetaminophen (TYLENOL) tablet 650 mg 650 mg Oral every 6 hours PRN Diogenes Bower MD oxyCODONE (ROXICODONE) tablet 5 mg 5 mg Oral every 4 hours PRN Diogenes Bower MD ondansetron (ZOFRAN) 4 mg/2 mL injection 4 mg 4 mg IV every 6 hours PRN Diogenes Bower MD aluminum - magnesium - simethicone (MYLANTA) 200-200-20 mg/5 mL oral suspension 30 mL 30 mL Oral every 2 hours PRN Diogenes Bower MD sennosides-docusate sodium (SENNA-S) 8.6-50 mg per tablet 1 Tablet 1 Tablet Oral BID PRN Diogenes Bower MD magnesium HYDROXIDE (MILK OF MAGNESIA) oral suspension 30 mL 30 mL Oral daily PRN Diogenes Bower MD Or bisacodyL (DULCOLAX) rectal suppository 10 mg 10 mg Rectal daily PRN Diogenes Bower MD melatonin tablet 9 mg 9 mg Oral at bedtime PRN Diogenes Bower MD enoxaparin (LOVENOX) injection 40 mg 40 mg subCUT every 24 hours Diogenes Bower MD 40 mg at 04/30/25 0827 meclizine (ANTIVERT) tablet 25 mg 25 mg Oral TID PRN Joshua Cornell MD 25 mg at 04/30/25 1150 [START ON 05/01/2025] DULoxetine (CYMBALTA) capsule 40 mg 40 mg Oral daily Jose Alejandro Almanza MD [DISCONTINUED] galantamine (RAZADYNE) tablet 8 mg 8 mg Oral BID WITH meals Diogenes Bower MD 8 mg at 04/30/25 0958 [DISCONTINUED] DULoxetine (CYMBALTA) capsule 60 mg 60 mg Oral daily Diogenes Bower MD 60 mg at 04/30/25 0826 [DISCONTINUED] prochlorperazine maleate (COMPAZINE) tablet 10 mg 10 mg Oral every 6 hours PRN Diogenes Bower MD No family history on file. Social History Socioeconomic History Marital status: Spouse name: Not on file Number of children: Not on file Years of education: Not on file Highest education level: Not on file Occupational History Not on file Tobacco Use Smoking status: Never Smokeless tobacco: Not on file Substance and Sexual Activity Alcohol use: Not on file Drug use: Not on file Sexual activity: Not on file Other Topics Concern Not on file Social History Narrative Not on file Health-Related Social Needs Food Insecurity: Not on file (04/30/2025) Transportation Needs: No Transportation Needs (04/30/2025) Transportation Needs Patient needs follow up regarding:: 1 Domestic Concerns: Not At Risk (04/29/2025) Feeling Safe Patient has indicated abuse: : No Housing Stability: Low Risk (04/29/2025) Housing Stability Struggle to pay rent or mortgage: No Results for orders placed or performed during the hospital encounter of 04/29/25 (from the past 24 hours) CBC WITH DIFFERENTIAL Result Value Ref Range WBC 10.7 4.8 - 10.8 K/uL RBC 5.27 4.60 - 6.20 M/uL HEMOGLOBIN 16.0 14.0 - 18.0 g/dL HEMATOCRIT 47.1 41.0 - 53.0 % MCV 89.4 84.0 - 103.0 fL MCH 30.4 27.0 - 34.0 pg MCHC 34.0 30.0 - 35.0 g/dL PLATELETS 291 140 - 440 K/uL MPV 9.9 8.9 - 12.8 fL RDW 12.7 11.0 - 14.5 % RDW-STDEV 41.6 37.0 - 54.0 fL NEUTROPHILS 56 42 - 75 % LYMPHOCYTES 36 24 - 44 % MONOCYTES 7 2 - 10 % EOSINOPHILS 0 0 - 7 % BASOPHILS 0 0 - 1 % IMMATURE GRANULOCYTES 0 0 - 2 % NEUTROPHIL ABSOLUTE 6.04 2.00 - 8.00 K/uL LYMPHOCYTE ABSOLUTE 3.83 1.20 - 4.00 K/uL MONOCYTE ABSOLUTE 0.76 (H) 0.10 - 0.60 K/uL EOSINOPHIL ABSOLUTE 0.04 0.00 - 0.70 K/uL BASOPHILS ABSOLUTE 0.03 0.00 - 0.20 K/uL IMMATURE GRANULOCYTES ABSOLUTE 0.01 0.00 - 0.10 K/uL SMEAR REVIEWED: NA - Not Applicable COMPREHENSIVE METABOLIC PANEL Result Value Ref Range SODIUM 138 136 - 145 mmol/L POTASSIUM 4.1 3.5 - 5.1 mmol/L CHLORIDE 99 98 - 107 mmol/L CO2 24 22 - 29 mmol/L CALCIUM 10.1 8.8 - 10.2 mg/dL BUN 19 8 - 23 mg/dL CREATININE 1.19 (H) 0.67 - 1.17 mg/dL GLUCOSE 109 (H) 74 - 99 mg/dL TOTAL PROTEIN 7.8 6.4 - 8.3 g/dL ALBUMIN 4.5 3.5 - 5.2 g/dL BILIRUBIN TOTAL 0.6 0.0 - 1.0 mg/dL ALKALINE PHOSPHATASE 66 40 - 129 U/L AST 12 10 - 50 U/L ALT 12 <=50 U/L GFR >60 >=60 mL/min/1.73 sq meter ANION GAP 15 9 - 20 mmol/L TROPONIN BASELINE, 5TH GEN Result Value Ref Range TROPONIN T, BASELINE 5TH GEN <6 <=15 ng/L LIPASE Result Value Ref Range LIPASE 28 13 - 60 U/L MAGNESIUM LEVEL Result Value Ref Range MAGNESIUM 2.0 1.6 - 2.4 mg/dL URINALYSIS WITH REFLEX MICROSCOPIC Result Value Ref Range COLOR UA Yellow Pale to Dark Yellow CLARITY UA Clear Clear SPECIFIC GRAVITY UA 1.035 1.003 - 1.035 PH UA 6.5 5.0 - 8.0 LEUKOCYTE ESTERASE UA Negative Negative NITRITE UA Negative Negative PROTEIN UA 1+ (A) Negative GLUCOSE UA Negative Negative KETONES UA 2+ (A) Negative UROBILINOGEN UA <2.0 <2.0 mg/dL BILIRUBIN UA Negative Negative BLOOD UA Negative Negative WBC UA 0-2 0 - 2 /hpf RBC UA 0-2 0 - 2 /hpf BACTERIA UA Negative Negative /hpf EPITHELIAL CELLS, URINE 0-5 0 - 5 /hpf TROPONIN 2 HR, 5TH GEN Result Value Ref Range TROPONIN T, 2 HR 5TH GEN <6 <=15 ng/L Thank you for the consultation. Jose Alejandro Almanza MD Neurology at [facility] documented in this encounter ED Notes * Dede Garcia RN - 04/30/2025 1:51 PM CDT Report called to Atiya Haddad RN * Dede Garcia RN - 04/30/2025 7:33 AM CDT Assumed care of patient. No needs expressed at this time. Patient sleeping on stretcher. Equal chest rise and fall noted. * Emily Munoz LPN - 04/30/2025 5:35 AM CDT Placed pt on 1.5 liters NC due to pt desatting to 86% while alseep. Pt now 95%. * Emily Munoz LPN - 04/30/2025 5:07 AM CDT Pt resting in bed comfortably. Resp even and unlabored. Denies needs at this time. Call light within reach * Emily Munoz LPN - 04/30/2025 1:42 AM CDT Pt resting in bed comfortably. Resp even and unlabored. Denies needs at this time. Call light within reach * Emily Munoz LPN - 04/30/2025 12:57 AM CDT MRI form completed and faxed at this time. * Emiyl Munoz LPN - 04/29/2025 11:55 PM CDT Pt roomed to 12 , resting in bed . Resps are even and unlabored. C/o vomiting for over 2 weeks and a migraine. Call light is within reach. * Ashutosh March - 04/29/2025 7:17 PM CDT Triage Protocol EKG [facility] EKG obtained in triage and reviewed by: Dr. Scott at Time: 1915 Patient will: Remain in the waiting room under the triage protocol and will be roomed per usual triage process. Primary triage nurse Andra notified. * Soy Rush PA - 04/29/2025 7:08 PM CDT Patient presents to ER with concern for headache, dizziness and vomiting for the past 2-3 weeks. Hedenies any fall or head injury. He states headache comes and goes and dizziness is better today. Dizziness is like room is spinning around him. He has a history of migraines since he was a kid. This is not his typical symptoms. He denies any chest pain, SOB, focal weakness/numbness in arms or legs,speech, changes. He has some epigastric pain with vomiting. Vitals: 04/29/25 1849 BP: (!) 146/81 Pulse: 76 Resp: 17 Temp: 98.1 ??F (36.7 ??C) SpO2: 98% Exam: Constitutional: Alert and oriented with no apparent distress. Respiratory: No obvious signs of respiratory distress. Neuro: Alert and oriented X3. Cardiac: RRR Abd: soft and nontender. Psych: Cooperative. Normal mood and affect. Pain 10/17 A medical screening exam was initiated in our triage area tailored to the patient's chief complaint. Focused diagnostics and therapies have been initiated. ER staff will continue and expand as appropriate to help identify any life or limb threatening conditions while awaiting an exam room in the main area of the ED. Continued care, evaluation and management of this patient will be performed throughout their stay. I advised patient to inform front end developer designer nurse of any change in symptoms. The patient's evaluation and anticipated ongoing care plan was discussed in detail with them to make sure theyare aware of what to expect during their stay. * Dillon Dangelo MD - 04/29/2025 6:41 PM CDT HISTORY OF PRESENT ILLNESS HPI CC: I have had migraines all my life. I had 1 starting 2 weeks ago. The vomiting has not stopped. HPI: The patient has been vomiting daily for little over 2 weeks. He is accompanied by his anddaughter who help with the history. His symptoms started 2 weeks ago Monday. He developed a headache behind his eyes into the back part of his head and neck. The pain was pressure behind the eyes andsharp to the back of the neck. It was a 10 on a 10 scale at its worst. It is currently a 0 on the 10 scale. It lasted for 5 days. He went to an outside hospital and had a cocktail for migraines whichimproved his headache. His headache came back once in the last 2 weeks but again resolved. At some point over the last 2 weeks he had a few days of dizziness. The dizziness occurred when he turned over in bed either to the left or to the right. It was a triggered dizziness. The headache and the dizziness have resolved. What has not resolved is the fact that the patient has had vomiting every day.This only occurs if he stands and tries to walk. If he lies still in bed he does not feel nauseatedand he does not vomit. He has not been able to keep much down unless he stays in bed. He has tried Zofran and Compazine as well as scopolamine and his vomiting has continued. His PCP told him to go to an emergency department that had a neurologist and so the patient came here. PMHX: Migraines, according to his the patient is thought to have early dementia. PSHX: Appendectomy Social HX: Denies tobacco use, drug use, or alcohol use PAST MEDICAL HISTORY REVIEWED MEDICAL: Patient has no past medical history on file. SURGICAL: Patient has no past surgical history on file. ALLERGIES Hydrocodone PHYSICAL EXAM INITIAL VS BP: (!) 146/81 (04/29/251848), Heart Rate: 76 bpm (04/29/251848), Resp: 17 (04/29/251848), Pulse: 76 (04/29/251848), Temp: 98.1 ??F (36.7 ??C) (04/29/251848), Temp src: Oral (04/29/251848), SpO2: 98 % (04/29/251848), Height: 5' 10 (177.8 cm) (04/29/251848), Weight: 77.1 kg (170 lb) (04/29/251848), BMI (Calculated): 24.39 (04/29/251848) No LMP for male patient. Physical Exam Constitutional: General: He is not in acute distress. Appearance: He is not ill-appearing. Eyes: Extraocular Movements: Extraocular movements intact. Conjunctiva/sclera: Conjunctivae normal. Pupils: Pupils are equal, round, and reactive to light. Cardiovascular: Rate and Rhythm: Normal rate and regular rhythm. Pulses: Normal pulses. Heart sounds: Normal heart sounds. Pulmonary: Effort: Pulmonary effort is normal. Breath sounds: Normal breath sounds. Abdominal: General: Abdomen is flat. There is no distension. Tenderness: There is no abdominal tenderness. There is no guarding. Neurological: Mental Status: He is alert. GCS: GCS eye subscore is 4. GCS verbal subscore is 5. GCS motor subscore is 6. Cranial Nerves: Cranial nerves 2-12 are intact. Sensory: Sensation is intact. Motor: Motor function is intact. Coordination: Coordination is intact. Romberg sign negative. Coordination normal. Hrdlqt-Irms-Atraqi Test and Heel to Mendez Test normal. Comments: Good finger-nose, ekwr-rp-ntdw, and rapid alternating hand movements. Able to sit unassisted, stand unassisted, Normal gait. Patient did fall backward with a Romberg and did fall forward with a repeated Romberg test. DIAGNOSTICS LAB: CBC WITH DIFFERENTIAL - Abnormal Result Value WBC 10.7 RBC 5.27 HEMOGLOBIN 16.0 HEMATOCRIT 47.1 MCV 89.4 MCH 30.4 MCHC 34.0 PLATELETS 291 MPV 9.9 RDW 12.7 RDW-STDEV 41.6 NEUTROPHILS 56 LYMPHOCYTES 36 MONOCYTES 7 EOSINOPHILS 0 BASOPHILS 0 IMMATURE GRANULOCYTES 0 NEUTROPHIL ABSOLUTE 6.04 LYMPHOCYTE ABSOLUTE 3.83 MONOCYTE ABSOLUTE 0.76 (*) EOSINOPHIL ABSOLUTE 0.04 BASOPHILS ABSOLUTE 0.03 IMMATURE GRANULOCYTES ABSOLUTE 0.01 SMEAR REVIEWED: NA - Not Applicable COMPREHENSIVE METABOLIC PANEL - Abnormal SODIUM 138 POTASSIUM 4.1 CHLORIDE 99 CO2 24 CALCIUM 10.1 BUN 19 CREATININE 1.19 (*) GLUCOSE 109 (*) TOTAL PROTEIN 7.8 ALBUMIN 4.5 BILIRUBIN TOTAL 0.6 ALKALINE PHOSPHATASE 66 AST 12 ALT 12 GFR >60 ANION GAP 15 URINALYSIS WITH REFLEX MICROSCOPIC - Abnormal COLOR UA Yellow CLARITY UA Clear SPECIFIC GRAVITY UA 1.035 PH UA 6.5 LEUKOCYTE ESTERASE UA Negative NITRITE UA Negative PROTEIN UA 1+ (*) GLUCOSE UA Negative KETONES UA 2+ (*) UROBILINOGEN UA <2.0 BILIRUBIN UA Negative BLOOD UA Negative WBC UA 0-2 RBC UA 0-2 BACTERIA UA Negative EPITHELIAL CELLS, URINE 0-5 TROPONIN BASELINE, 5TH GEN - Normal TROPONIN T, BASELINE 5TH GEN <6 TROPONIN 2 HR, 5TH GEN - Normal TROPONIN T, 2 HR 5TH GEN <6 LIPASE - Normal LIPASE 28 MAGNESIUM LEVEL - Normal MAGNESIUM 2.0 EXTRA TUBE (URINE MUSTAFA) RADIOLOGY: XR CHEST PA OR AP 1 VW Radiologist Impression IMPRESSION: See below. EXAMINATION: XR CHEST PA OR AP 1 VW CLINICAL HISTORY: ASSOCIATED DIAGNOSIS: Dizziness ORDERING PROVIDER: SOY RUSH TECHNOLOGISTS NOTE: COMPARISON: None FINDINGS/IMPRESSION: Lines, tubes, and devices: None. Lungs are clear. Calcified granuloma is seen left hilum. No significant effusion or pneumothorax. Heart size within normal limits. ACDF. CT HEAD WO CONTRAST Radiologist Impression IMPRESSION: No acute intracranial abnormality. MACRO: None EKG: ED Physician's interpretation of the EKG: Time Performed: 19:13 Time Interpreted: 00:06 Rate: 87 Interpretation: The EKG showed normal sinus rhythm, normal axis, normal intervals, QTc forted 40, no hypertrophy, no pathologic Q waves, no ST elevation or depression. Comparison: No old EKGs in epic compare to. PROCEDURES Procedures MEDICAL DECISION MAKING AND PLAN OF CARE NIH Stroke Scale Time Administered: 12:32 AM 1a Level of consciousness: 0=alert; keenly responsive 1b. LOC questions: Month/Age (1 if unable to speak due to intubation, trauma, etc) 0=Performs both tasks correctly 1c. LOC commands:Open & close eyes, hand. Allowed to mimic this for patient 0=Performs both tasks correctly 2. Best Gaze:Lateral movement tested 0=normal 3. Visual Barragan and Visual Neglect: 0=No visual loss 4. Facial Palsy: 0=Normal symmetric movement 5a. Motor left arm: Untestable (UN) if limb absent, fused 0=No drift, limb holds 90 (or 45) degreesfor full 10 seconds 5b. Motor right arm: 0=No drift, limb holds 90 (or 45) degrees for full 10 seconds 6a. motor left le=No drift, limb holds 90 (or 45) degrees for full 10 seconds 6b Motor right le=No drift, limb holds 90 (or 45) degrees for full 10 seconds 7. Limb Ataxia: Score is 0 if limb has weakness. 0=Absent 8. Sensory: 0=Normal; no sensory loss 9. Best Language: (Comatose pt scores 3) 0=No aphasia, normal 10. Dysarthria: 0=Normal 11. Extinction and Inattention: 0=No abnormality Total: 0 No nystagmus. Good ohxpbf-te-xrks, tvqn-me-qhge, and rapid alternating hand movements. Able to sit unassisted, stand unassisted, and ambulate normally. Did fall backwards with the first Romberg and then fell forward with a second Romberg attempt. He stumbled forward until he opened his eyes and wasable to regain his balance. He did not fall to the ground. There were no injuries. The patient is a 69-year-old male with a history of migraines who comes in for intractable nausea vomiting. He has been vomiting daily for little over 2 weeks. It only occurs when he stands. If he islying down he does not feel nauseated or vomit. Initially when this started a little over 2 weeks ago the patient had a headache that lasted for 5 days. He went to an outside facility and had a migrai ne cocktail that helped his headache. The vomiting continued. At 1 point over the last 2 weeks he had dizziness for a few days. It only occurred when he rolled over in bed. It could occur if he rollsto the left or to the right. If he laid flat he had no dizziness. He has not had any facial droop,slurred speech, one-sided weakness or numbness, chest pain, palpitations, shortness of breath, passing out. He has not had any fever or chills. He denies any head congestion, runny nose, sinus pressure, postnasal drip, sore throat, cough, or bodyaches. The headache that he had the first 4 to 5 dayswas typical of headache she has had in the past. The dizziness was something new. He is never had that before. He has never had daily vomiting. He has been on Compazine and Zofran as well as scopolamine and continues to have the vomiting. He is going to outside hospitals and has been treated for nausea and vomiting but continues to have the vomiting daily. He denies any diarrhea with the vomiting. He denies any abdominal pain to me although there is a note in [facility] that he did have some epigastric pain previously. He had no tenderness here. When the patient stood for the Romberg test and for the ambulation trial he did become nauseated and started belching and almost dry heaving. He denied feeling dizzy at the time. He denied any vertigo at the time. Labs were sent prior to my seeing the patient. White count is 10.7. Hemoglobin is 16.0. Platelets are 291. 56 segs. Baseline troponin is undetectable. Chemistry is essentially normal. Creatinine is 1.19. No old labs in [facility] to compare with. UA shows 1+ protein and 2+ ketones. CT head was done and was read as nothing acute by radiology. Chest x-ray was read as nothing acute by radiology. Differential diagnosis to include but not limited to: Certainly epigastric pain with vomiting couldbe due to cholecystitis, biliary colic, esophagitis, gastritis, peptic ulcer disease. Pancreatitis could cause this as well. Patient's liver enzymes are normal and white count is normal and he is nottender in the epigastrium or right upper quadrant making this unlikely. Triggered dizziness is typically peripheral vertigo and not a central vertigo. But with headache, dizziness, and vomiting this lasting for 2 weeks a cerebellar stroke or tumor is a possibility. Medication side effect possibility. I did offer some antinausea medication but he states as long as I do not stand him up or make him walk he is fine. He is not nauseated as long as he just stays laying down. I will do an MRI of the brain. I will give the patient IV fluids. I will get him admitted for intractable nausea vomiting. I will discuss with neurology as the patient's PCP sent him here to be seen by neurology. Dr. Almanza, neurology, paged. Dr. Bower, hospitalist, paged. 12:[address] Almanza: Will see tomorrow in consult. Would like me to do an MRV as well. Dr. Bower: will admit, neuro tele obs Medical Decision Making Amount and/or Complexity of Data Reviewed Labs: ordered. Radiology: ordered. ECG/medicine tests: ordered. Risk Prescription drug management. Decision regarding hospitalization. Clinical Scoring & Consults Medications Administered During the ED Stay from 04/29/20251840 to 04/30/202548 Date/Time Order Dose Route Action 04/30/202543 CDT sodium chloride 0.9 % bolus solution 1,000 mL 1,000 mL IV New Bag . LAST VS BP: 136/76 (04/30/25), Heart Rate: 80 bpm (04/30/25), Resp: 17 (04/30/25), Pulse: 79(04/30/25), Temp: 98.1 ??F (36.7 ??C) (04/29/251848), Temp src: Oral (04/29/251848), SpO2: 96 % (04/30/25) CLINICAL IMPRESSION Diagnosis Diagnosis Comment Added By Time Added Intractable nausea and vomiting [R11.2] Dillon Dangelo MD 04/30/2025 12:38 AM DISPOSITION, EDUCATION AND MEDICATION RECONCILIATION Medications reconciled. See after visit summary for patient education on discharged patients. ED Disposition ED Disposition Admit Condition Stable User Dillon Dangelo MD Date/Time MonApr 30, 2025 12:49 AM Comment -- ATTESTATION STATEMENTS The times documented are the time of computer entry, not necessarily the time the event occurred This note was transcribed using an automated dictation software. Efforts have been made to assure accuracy of the damascener. Any obvious errors or omissions should be clarified with the author ofthe document. documented in this encounter Miscellaneous Notes * Care Plan - Lashell Lovell RN - 05/01/2025 5:11 PM CDT Shift Summary Meclizine was administered in [facility] to address nausea during the shift. Maintained safety with supervision and no reported falls or injuries throughout the shift. Family visited during the shift, providing additional support. No abnormal temperature or behavioral changes were documented, and delirium screening remained negative. Overall, remained stable with no significant safety or infection-related concerns during the shift. Infection Risk/Actual: Infection prevention, control, or resolution by discharge: No fever or abnormal temperature trends were observed during the shift, and no delirium or behavioral changes were documented. Safety/Fall: Absence of fall, injury, harm during hospitalization: Remained under supervision with no falls or injuries reported, and safety checks were completed as scheduled. * Gen AI ED Handoff - GENERATIVE AI HANDOFF NOTE - 04/30/2025 1:55 PM CDT SITUATION: Patient ( ) is a 69-year-old male who has been in the ER for 19 hours. He came to the ER due to vomiting dizziness. The patient's most recent care team on record included: Dede Garcia. BACKGROUND: Drips the patient are on include: sodium, last started at 2025-04-30 02:02:00. This patient has allergies to Hydrocodone. ASSESSMENT: Patient's most recent vitals recorded in flowsheets were as follows: BP: 125/62 T: 98.1 F RR: 14 SPO2: 92% HR: 79 WT: 170.0 LBS BMI: 24.39 Lines most recently placed include: angiocath at 2025-04-29 21:19. Last recorded oxygen source was room air. The patient, Ramón Michel, is a 69-year-old male with a history of mild dementia, GERD, chronic stress, and migraines. He presented with intractable nausea and vomiting, which have persisted for over two weeks. The symptoms began after returning from a cruise, initially accompanied by a headache and vertigo, both of which have resolved. The patient experiences nausea upon standing and has a history of falling backward with a Romberg test. He is on a scopolamine patch, PPI as needed, antiemetics, galantamine for dementia, and duloxetine for mood disorder. The patient has a calcified granuloma on the left hilum as seen on CXR. He experienced desaturation to 86% while asleep, which improved to 95% with 1.5 liters of nasal cannula oxygen. The patient is independent in ambulation, transferring, toileting, bathing, dressing, and eating, with no weight-bearing restrictions. He lives with his spouse/significant other. RECOMMENDATION: Continue observation for management of intractable nausea and vomiting. Neurology has been consulted and recommendations are pending. Continue scopolamine patch, PPI as needed, antiemetics, galantamine for dementia, and duloxetine for mood disorder. Administer lorazepam as ordered. Maintain clear liquid diet and advance as tolerated. Provide DVT prophylaxis with Lovenox. Monitor anticoagulation therapy as per [facility] Anticoagulation Protocol. Ensure call light is within reach and monitor respiratory status due to previous desaturation to 86% while asleep, currently on 1.5 liters nasal cannula oxygen to maintain SpO2 at 95%. Follow up on calcified granuloma with outpatient care. Care Management to continue following for discharge planning. *This summary was created by generarey MANE. The responses are meant to enhance, not replace normal workflow. Please contact the ED nurse for any additional information.* * Care Plan - Tish Powell BSW - 04/30/2025 10:05 AM CDT Clinical documentation reviewed. Comprehensive Discharge Planning Risk Assessment was completed. Documentation Related to CDPA score CDPA Documentation Ambulation: independent Transferring: independent Toileting: independent Bathing: independent Dressing: independent Eating: independent Communication: understands/communicates w/o difficulty Weight-Bearing Status: no weight-bearing restrictions Living Arrangements: Lives with spouse/significant other Total Score of 9 or below does not identify immediate needs for discharge. CDPA Risk Score Total Score: 6 6 Age Criteria that do not apply: Self-reported walking limitation Disability Prior Living Status Please place consult if needs for discharge are identified. Care Management will continue to follow for discharge planning. * ED Bed Hold Comment Note - Nino Cadena RN - 04/29/2025 11:34 PM CDT Bed: 12 Expected date: Expected time: Means of arrival: Comments: Triage documented in this encounter Plan of Treatment Upcoming Encounters Date Type Department Care Team (Late st Contact Info) Description 10/14/2025 10:00 AM CDT Office Visit [facility] Neurology - [place] [address] [place] [address] Jesus Salmon MD [address] [place] [address] Scheduled Referrals Name Type Priority Associated Diagnoses Orde r Schedule AMB REFERRAL TO PHYSICAL THERAPY Outpatient Referral Routine Benign paroxysmal positional vertigo of left ear Ordered: 05/02/2025 AMB REFERRAL TO ENT Outpatient Referral Routine Lesion of parotid gland Ordered: 05/02/2025 AMB REFERRAL TO FAMILY PRACTICE Outpatient Referral Routine Vertigo Ordered: 05/02/2025 documented as of this encounter Procedures Procedure Name Priority Date/Time Associated Diagnosis Comments BASIC METABOLIC PANEL Routine 05/02/2025 3:39 AM CDT PT EVAL AND TREAT Pending Discharge 05/01/2025 2:17 PM CDT MRI THORACIC WO CONTRAST Pending Discharge 05/01/2025 3:30 AM CDT MRI CERVICAL WO CONTRAST Pending Discharge 05/01/2025 3:29 AM CDT BASIC METABOLIC PANEL Routine 05/01/2025 1:24 AM CDT MRA VENOUS HEAD WO CONTRAST Stat 04/30/2025 2:56 AM CDT MRI BRAIN WO CONTRAST Stat 04/30/2025 2:55 AM CDT TROPONIN 2 HR, 5TH GEN Timed Study 04/29/2025 11:48 PM CDT EXTRA TUBE (URINE MUSTAFA) Stat 04/29/2025 10:11 PM CDT URINALYSIS W/REFLEX MICROSCOPIC Stat 04/29/2025 10:11 PM CDT TROPONIN BASELINE, 5TH GEN Stat 04/29/2025 9:17 PM CDT CBC WITH DIFFERENTIAL Stat 04/29/2025 9:17 PM CDT MAGNESIUM LEVEL Stat 04/29/2025 9:17 PM CDT LIPASE Stat 04/29/2025 9:17 PM CDT COMPREHENSIVE METABOLIC PANEL Stat 04/29/2025 9:17 PM CDT XR CHEST PA OR AP 1 VW Stat 04/29/2025 8:[address] HEAD WO CONTRAST Stat 04/29/2025 7 :56 PM CDT EKG 12-LEAD Stat 04/29/2025 7:13 PM CDT documented in this encounter Results * (ABNORMAL) BASIC METABOLIC PANEL (05/02/2025 3:39 AM CDT) [facility] SODIUM 139 136 - 145 mmol/L 05/02/2025 4:27 AM CDT [facility] POTASSIUM 3.6 3.5 - 5.1 mmol/L 05/02/2025 4:27 AM CDT [facility] CHLORIDE 105 98 - 107 mmol/L 05/02/2025 4:27 AM CDT [facility] CO2 24 22 - 29 mmol/L 05/02/2025 4:27 AM CDT [facility] CALCIUM 9.1 8.8 - 10.2 mg/dL 05/02/2025 4:27 AM CDT [facility] BUN 17 8 - 23 mg/dL 05/02/2025 4:27 AM T [facility] CREATININE 1.15 0.67 - 1.17 mg/dL 05/02/2025 4:27 AM T [facility] GLUCOSE 114(H) 74 - 99 mg/dL 05/02/2025 4:27 AM T [facility] GFR >60 >=60 mL/min/1.7 3 sq meter 05/02/2025 4:27 AM T [facility] Comment:eGFR calculated with 2020 CKD-EPI equation. Vegetarian diet, extremely high or low muscle mass, and may affect results. Cystatin C with Glomerular Filtration Rate is a suitable alternative for these patients. ANION GAP 10 9 - 20 mmol/L 05/02/2025 4:27 AM T [facility] Blood Venipuncture / Unknown 05/02/2025 3:39 AM CDT 05/02/2025 3:53 AM CDT Joshua Cornell MD CHEMISTRY ORDERABLES Fin al Result [facility] CLIA # [id number] [address] [place] [id number] * MRI THORACIC WO CONTRAST (05/01/2025 3:30 AM CDT) Anatomical Region Laterality Modality Spine Magnetic Resonan ce 05/01/2025 3:30 AM CDT Impressions 05/01/2025 5:39 AM CDT IMPRESSION: Multilevel degenerative changes. No significant thoracic canal or foraminal stenosis. Narrative 05/01/2025 5:39 AM CDT EXAM: MRI THORACIC WO CONTRAST DATE/TIME OF EXAM: 05/01/2025 3:30 AM REASON FOR STUDY: Myelopathy, acute, thoracic spine DIAGNOSIS: Intractable nausea and vomiting COMPARISON: None TECHNIQUE: Multiplanar, multisequence MR imaging was performed of the thoracic spine without contrast. FINDINGS: Bones: No evidence of an acute fracture. Marrow Signal: Demineralization. Alignment: Increased kyphosis. Thoracic Cord: No cord signal abnormality. Soft Tissue: No acute abnormality. Prominent central protrusions at T7-T8 and T8-T9 resulting in mild canal stenosis. No significant foraminal stenosis. There is multilevel facet arthropathy throughout the thoracic spine Procedure Note Farzaneh Sterlnig MD - 05/01/2025 EXAM: MRI THORACIC WO CONTRAST DATE/TIME OF EXAM: 05/01/2025 3:30 AM REASON FOR STUDY: Myelopathy, acute, thoracic spine DIAGNOSIS: Intractable nausea and vomiting COMPARISON: None TECHNIQUE: Multiplanar, multisequence MR imaging was performed of the thoracic spine without contrast. FINDINGS: Bones: No evidence of an acute fracture. Marrow Signal: Demineralization. Alignment: Increased kyphosis. Thoracic Cord: No cord signal abnormality. Soft Tissue: No acute abnormality. Prominent central protrusions at T7-T8 and T8-T9 resulting in mild canal stenosis. No significant foraminal stenosis. There is multilevel facet arthropathy throughout the thoracic spine IMPRESSION: Multilevel degenerative changes. No significant thoracic canal or foraminal stenosis. us Jose Alejandro Almanza MD MR ORDERABLES Crystal l Result * MRI CERVICAL WO CONTRAST (05/01/2025 3:29 AM CDT) Anatomical Region Laterality Modality Spine Magnetic Resonan ce 05/01/2025 3:29 AM CDT Impressions 05/01/2025 5:36 AM CDT IMPRESSION: Multilevel degenerative changes. No high-grade canal stenosis. Varying degrees of foraminal stenosis, as detailed in the body of the report. 8 mm T2 hyperintense right parotid lesion is nonspecific and may reflect salivary gland neoplasm. ENT follow-up is recommended. Narrative 05/01/2025 5:36 AM CDT EXAM: MRI CERVICAL WO CONTRAST DATE/TIME OF EXAM: 05/01/2025 3:29 AM REASON FOR STUDY: B LE spasticity DIAGNOSIS: Intractable nausea and vomiting COMPARISON: None TECHNIQUE: MRI cervical spine without contrast. FINDINGS: Bones: C5-C6 ACDF without apparent hardware complication. No evidence of an acute fracture. Marrow Signal: Within normal limits. Alignment: Straightened sagittal alignment. Grade 1 anterolisthesis C6 on C7. Cervical Cord: No cord signal abnormality. Soft Tissue: No acute abnormality. 8 mm T2 hyperintense right parotid lesion. Craniocervical junction: Within normal limits. Cervical Vertebral Artery Flow Voids: Maintained major vertebral artery T2 flow voids. C2-C3: No significant intervertebral disc space narrowing. Central protrusion. Uncinate and facet arthropathy. Moderate to severe left and moderate right foraminal stenosis. Left subarticular stenosis. No significant canal stenosis. C3-C4: No significant intervertebral disc space narrowing. Uncinate and facet arthropathy. No significant canal or foraminal stenosis. C4-C5: Mild intervertebral disc space narrowing. Posterior disc-osteophyte complex, uncinate and facet arthropathy. Moderate bilateral foraminal stenosis. Mild canal stenosis. C5-C6: Postsurgical change. Degenerative facet hypertrophy. Mild left foraminal stenosis. C6-C7: Mild anterolisthesis. Posterior disc-osteophyte complex, scans arthropathy. Moderate bilateral foraminal stenosis. Mild canal stenosis. C7-T1: No significant intervertebral disc space narrowing. No significant canal or foraminal stenosis. Procedure Note Farzaneh Sterling MD - 05/01/2025 EXAM: MRI CERVICAL WO CONTRAST DATE/TIME OF EXAM: 05/01/2025 3:29 AM REASON FOR STUDY: B LE spasticity DIAGNOSIS: Intractable nausea and vomiting COMPARISON: None TECHNIQUE: MRI cervical spine without contrast. FINDINGS: Bones: C5-C6 ACDF without apparent hardware complication. No evidence of an acute fracture. Marrow Signal: Within normal limits. Alignment: Straightened sagittal alignment. Grade 1 anterolisthesis C6 on C7. Cervical Cord: No cord signal abnormality. Soft Tissue: No acute abnormality. 8 mm T2 hyperintense right parotid lesion. Craniocervical junction: Within normal limits. Cervical Vertebral Artery Flow Voids: Maintained major vertebral artery T2 flow voids. C2-C3: No significant intervertebral disc space narrowing. Central protrusion. Uncinate and facet arthropathy. Moderate to severe left and moderate right foraminal stenosis. Left subarticular stenosis. No significant canal stenosis. C3-C4: No significant intervertebral disc space narrowing. Uncinate and facet arthropathy. No significant canal or foraminal stenosis. C4-C5: Mild intervertebral disc space narrowing. Posterior disc-osteophyte complex, uncinate and facet arthropathy. Moderate bilateral foraminal stenosis. Mild canal stenosis. C5-C6: Postsurgical change. Degenerative facet hypertrophy. Mild left foraminal stenosis. C6-C7: Mild anterolisthesis. Posterior disc-osteophyte complex, scans arthropathy. Moderate bilateral foraminal stenosis. Mild canal stenosis. C7-T1: No significant intervertebral disc space narrowing. No significant canal or foraminal stenosis. IMPRESSION: Multilevel degenerative changes. No high-grade canal stenosis. Varying degrees of foraminal stenosis, as detailed in the body of the report. 8 mm T2 hyperintense right parotid lesion is nonspecific and may reflect salivary gland neoplasm. ENT follow-up is recommended. Jose Alejandro Almanza MD MR ORDERABLES Crystal l Result * BASIC METABOLIC PANEL (05/01/2025 1:24 AM CDT) SODIUM 138 136 - 145 mmol/L 05/01/2025 2:40 AM CDT [facility] POTASSIUM 4.0 3.5 - 5.1 mmol/L 05/01/2025 2:40 AM CDT [facility] CHLORIDE 105 98 - 107 mmol/L 05/01/2025 2:40 AM CDT [facility] CO2 23 22 - 29 mmol/L 05/01/2025 2:40 AM CDT [facility] CALCIUM 9.0 8.8 - 10.2 mg/dL 05/01/2025 2:40 AM CDT [facility] BUN 16 8 - 23 mg/dL 05/01/2025 2:40 AM CDT [facility] CREATININE 1.14 0.67 - 1.17 mg/dL 05/01/2025 2:40 AM CDT [facility] GLUCOSE 95 74 - 99 mg/dL 05/01/2025 2:40 AM CDT [facility] GFR >60 >=60 mL/min/1.7 3 sq meter 05/01/2025 2:40 AM CDT [facility] Comment:eGFR calculated with 2020 CKD-EPI equation. Vegetarian diet, extremely high or low muscle mass, and may affect results. Cystatin C with Glomerular Filtration Rate is a suitable alternative for these patients. ANION GAP 10 9 - 20 mmol/L 05/01/2025 2:40 AM CDT [facility] Blood Venipuncture / Unknown 05/01/2025 1:24 AM CDT 05/01/2025 2:07 AM CDT Joshua Cornell MD CHEMISTRY ORDERABLES Fin al Result [facility] CLIA # [id number] [address] [place] [address] * MRA VENOUS HEAD WO CONTRAST (04/30/2025 2:56 AM CDT) Anatomical Region Laterality Modality Head Magnetic Resonan ce 04/30/2025 2:56 AM CDT Impressions 04/30/2025 3:09 AM CDT IMPRESSION: Please see below. Exam: MRA VENOUS HEAD WO CONTRAST Date/Time of Exam: 04/30/2025 2:56 AM Reason For Exam: Persistent vomiting, dizziness, headache. Diagnosis: Intractable nausea and vomiting. Comparison: Multiple exams performed the same day. FINDINGS: Superior sagittal sinus: Patent. Straight sinus: Patent. Transverse sinuses: Patent. Right dominant transverse sinus. Asymmetric decreased flow void seen within this left transverse sinus is nonspecific but suspected represent nondominant sinus. On recent prior CT this region demonstrated relative symmetric density compared to the contralateral side. Sigmoid sinuses: Patent. Internal jugular veins: Visualized segments patent. IMPRESSION: Asymmetric decreased flow void seen within the left transverse sinus is nonspecific but suspected to represent a thready nondominant sinus. Otherwise no dural sinus venous thrombosis is seen. Narrative Procedure Note Db Szymanski MD - 04/30/2025 IMPRESSION: Please see below. Exam: MRA VENOUS HEAD WO CONTRAST Date/Time of Exam: 04/30/2025 2:56 AM Reason For Exam: Persistent vomiting, dizziness, headache. Diagnosis: Intractable nausea and vomiting. Comparison: Multiple exams performed the same day. FINDINGS: Superior sagittal sinus: Patent. Straight sinus: Patent. Transverse sinuses: Patent. Right dominant transverse sinus. Asymmetric decreased flow void seen within this left transverse sinus is nonspecific but suspected represent nondominant sinus. On recent prior CT this region demonstrated relative symmetric density compared to the contralateral side. Sigmoid sinuses: Patent. Internal jugular veins: Visualized segments patent. IMPRESSION: Asymmetric decreased flow void seen within the left transverse sinus is nonspecific but suspected to represent a thready nondominant sinus. Otherwise no dural sinus venous thrombosis is seen. us Dillon Dangelo MD MR ORDERABLES Final Result * MRI BRAIN WO CONTRAST (04/30/2025 2:55 AM CDT) Anatomical Region Laterality Modality Head Magnetic Resonan ce 04/30/2025 2:55 AM CDT Impressions 04/30/2025 3:05 AM CDT IMPRESSION: Please see below. Exam: MRI BRAIN WO CONTRAST Date/Time of Exam: 04/30/2025 2:55 AM Reason For Exam: Headache, vertigo, ataxia, intractable vomiting, rule out cerebellar stroke. Diagnosis: Intractable nausea and vomiting. Comparison: CT head performed one day prior. Technique: MRI of the brain without intravenous contrast. Findings: No acute/recent infarct. No acute hemorrhage or extra-axial fluid collection. No mass effect, midline shift or other herniation. Prominence of ventricles and sulci compatible with mild generalized parenchymal volume loss. No hydrocephalus.. Sellar structures are grossly unremarkable for age. Subtle subcortical and periventricular supratentorial white matter T2 hyperintensities are nonspecific, however are compatible with mild chronic microvascular ischemic changes.. No expansile edema. No evidence of intracranial mass. A few scattered small foci of susceptibility artifact present, particularly in the deep mustafa structures, possibly sequelae of hypertensive microhemorrhages. Unremarkable vascular flow voids within the large intracranial arteries. Normal bony marrow signal intact. Mild scattered mucosal thickening in the paranasal sinuses. Right lens implant. IMPRESSION: No acute infarct. Minimal nonspecific white matter disease. Narrative Procedure Note Db Szymanski MD - 04/30/2025 IMPRESSION: Please see below. Exam: MRI BRAIN WO CONTRAST Date/Time of Exam: 04/30/2025 2:55 AM Reason For Exam: Headache, vertigo, ataxia, intractable vomiting, rule out cerebellar stroke. Diagnosis: Intractable nausea and vomiting. Comparison: CT head performed one day prior. Technique: MRI of the brain without intravenous contrast. Findings: No acute/recent infarct. No acute hemorrhage or extra-axial fluid collection. No mass effect, midline shift or other herniation. Prominence of ventricles and sulci compatible with mild generalized parenchymal volume loss. No hydrocephalus.. Sellar structures are grossly unremarkable for age. Subtle subcortical and periventricular supratentorial white matter T2 hyperintensities are nonspecific, however are compatible with mild chronic microvascular ischemic changes.. No expansile edema. No evidence of intracranial mass. A few scattered small foci of susceptibility artifact present, particularly in the deep mustafa structures, possibly sequelae of hypertensive microhemorrhages. Unremarkable vascular flow voids within the large intracranial arteries. Normal bony marrow signal intact. Mild scattered mucosal thickening in the paranasal sinuses. Right lens implant. IMPRESSION: No acute infarct. Minimal nonspecific white matter disease. Dillon Dangelo MD MR ORDERABLES Final Result * TROPONIN 2 HR, 5TH GEN (04/29/2025 11:48 PM CDT) TROPONIN T, 2 HR 5TH GEN <6 <=15 ng/L 04/30/2025 12:31 AM CDT [facility] [employer] [facility] Blood Venipuncture / Unknown 04/29/2025 11:48 PM CDT 04/29/2025 11:58 PM CDT Narrative [facility] [employer] [facility] - 04/30/2025 12:31 AM CDT Troponin Undetectable Delay in collection of timed specimen beyond recommended collection interval. Results must be interpreted in clinical context. Unable to calculate delta. us Soy ULRICH CHEMISTRY ORDERABLES Final Resu lt [facility] CLIA # [id number] Formerly [facility] [address] [address] [place] [address] * EXTRA TUBE (URINE MUSTAFA) (04/29/2025 10:11 PM CDT) Urine URINE SPECIMEN OBTAINED BY CLEAN CATCH PROCEDURE / Unknown Collection / Unknown 04/29/2025 10:11 PM CDT 04/29/2025 10:14 PM CDT Soy ULRICH URINE ORDERABLES Final Result [facility] CLIA # [id number] [address] [address] [place] [address] * (ABNORMAL) URINALYSIS WITH REFLEX MICROSCOPIC (04/29/2025 10:11 PM CDT) COLOR UA Yellow Pale to Dark Yellow 04/29/2025 10:36 PM CDT [facility] CLARITY UA Clear Clear 04/29/2025 10:36 PM CDT [facility] SPECIFIC GRAVITY UA 1.035 1.003 - 1.035 04/29/2025 10:36 PM CDT [facility] PH UA 6.5 5.0 - 8.0 04/29/2025 10:36 PM CDT [facility] LEUKOCYTE ESTERASE UA Negative Negative 04/29/2025 10:36 PM CDT [facility] NITRITE UA Negative Negative 04/29/2025 10:36 PM CDT [facility] PROTEIN UA 1+(A) Negative 04/29/2025 10:36 PM CDT [facility] GLUCOSE UA Negative Negative 04/29/2025 10:36 PM CDT [facility] KETONES UA 2+(A) Negative 04/29/2025 10:36 PM CDT [facility] UROBILINOGEN UA <2.0 <2.0 mg/dL 10:36 PM CDT [facility] BILIRUBIN UA Negative Negative 04/29/2025 10:36 PM CDT [facility] BLOOD UA Negative Negative 04/29/2025 10:36 PM CDT [facility] WBC UA 0-2 0 - 2 /hpf 04/29/2025 10:36 PM CDT [facility] RBC UA 0-2 0 - 2 /hpf 04/29/2025 10:36 PM CDT [facility] BACTERIA UA Negative Negative /hpf 04/29/2025 10:36 PM CDT [facility] EPITHELIAL CELLS, URINE 0-5 0 - 5 /hpf 04/29/2025 10:36 PM CDT [facility] Urine URINE SPECIMEN OBTAINED BY CLEAN CATCH PROCEDURE / Unknown Collection / Unknown 04/29/2025 10:11 PM CDT 04/29/2025 10:14 PM CDT us Soy ULRICH URINE ORDERABLES Final Result Performing Organization Address City/[facility]/ZIP Co de Phone Number [facility] CLIA # [id number] [facility] [address] * MAGNESIUM LEVEL (04/29/2025 9:17 PM CDT) Pathologist [facility] MAGNESIUM 2.0 1.6 - 2.4 mg/dL 04/29/2025 10:11 PM CDT [facility] Blood Venipuncture / Unknown 04/29/2025 9:17 PM CDT 04/29/2025 9:31 PM CDT us Soy ULRICH CHEMISTRY ORDERABLES Final Resu lt [facility] CLIA # [id number] [facility] [address] * LIPASE (04/29/2025 9:17 PM CDT) LIPASE 28 13 - 60 U/L 04/29/2025 10:09 PM CDT [facility] Blood Venipuncture / Unknown 04/29/2025 9:17 PM CDT 04/29/2025 9:31 PM CDT Soy ULRICH CHEMISTRY ORDERABLES Final Resu lt Performing Organization Address [facility] Co de Phone Number [facility] CLIA # [id number] [address] [address] [place] [address] * TROPONIN BASELINE, 5TH GEN (04/29/2025 9:17 PM CDT) TROPONIN T, BASELINE 5TH GEN <6 <=15 ng/L 04/29/2025 10:04 PM CDT [facility] Blood Venipuncture / Unknown 04/29/2025 9:17 PM CDT 04/29/2025 9:31 PM CDT Narrative [facility] [employer] [facility] - 04/29/2025 10:04 PM CDT Troponin Undetectable us Soy ULRICH CHEMISTRY ORDERABLES Final Resu lt Performing Organization Address [facility] Co de Phone Number [facility] CLIA # [id number] [address] [address] * (ABNORMAL) COMPREHENSIVE METABOLIC PANEL (04/29/2025 9:17 PM CDT) SODIUM 138 136 - 145 mmol/L 04/29/2025 10:11 PM CDT [facility] [employer] [facility] POTASSIUM 4.1 3.5 - 5.1 mmol/L 04/29/2025 10:11 PM CDT [facility] CHLORIDE 99 98 - 107 mmol/L 04/29/2025 10:11 PM CDT [facility] CO2 24 22 - 29 mmol/L 04/29/2025 10:11 PM CDT [facility] [employer] [facility] CALCIUM 10.1 8.8 - 10.2 mg/dL 04/29/2025 10:11 PM [facility] BUN 19 8 - 23 mg/dL 04/29/2025 10:11 PM [facility] CREATININE 1.19(H) 0.67 - 1.17 mg/dL 04/29/2025 10:11 PM T [facility] GLUCOSE 109(H) 74 - 99 mg/dL 04/29/2025 10:11 PM [facility] TOTAL PROTEIN 7.8 6.4 - 8.3 g/dL 04/29/2025 10:11 PM [facility] ALBUMIN 4.5 3.5 - 5.2 g/dL 04/29/2025 10:11 PM T [facility] BILIRUBIN TOTAL 0.6 0.0 - 1.0 mg/dL 04/29/2025 10:11 PM [facility] ALKALINE PHOSPHATASE 66 40 - 129 U/L 04/29/2025 10:11 PM [facility] AST 12 10 - 50 U/L 04/29/2025 10:11 PM [facility] ALT 12 <=50 U/L 04/29/2025 10:11 PM [facility] GFR >60 >=60 mL/min/1. 73 sq meter 04/29/2025 10:11 PM [facility] Comment:eGFR calculated with 2020 CKD-EPI equation. Vegetarian diet, extremely high or low muscle mass, and may affect results. Cystatin C with Glomerular Filtration Rate is a suitable alternative for these patients. ANION GAP 15 9 - 20 mmol/L 04/29/2025 10:11 PM [facility] Blood Venipuncture / Unknown 04/29/2025 9:17 PM CDT 04/29/2025 9:31 PM CDT us Soy ULRICH CHEMISTRY ORDERABLES Final Resu lt [facility] CLIA # [id number] [facility] [address] [place] [address] * (ABNORMAL) CBC WITH DIFFERENTIAL (04/29/2025 9:17 PM CDT) [facility] WBC 10.7 4.8 - 10.8 K/uL 04/29/2025 9:27 PM CDT [facility] RBC 5.27 4.60 - 6.20 M/uL 04/29/2025 9:27 PM CDT [facility] HEMOGLOBIN 16.0 14.0 - 18.0 g/dL 04/29/2025 9:27 PM CDT [facility] HEMATOCRIT 47.1 41.0 - 53.0 % 04/29/2025 9:27 PM CDT [facility] MCV 89.4 84.0 - 103.0 fL 04/29/2025 9:27 PM CDT [facility] MCH 30.4 27.0 - 34.0 pg 04/29/2025 9:27 PM CDT [facility] MCHC 34.0 30.0 - 35.0 g/dL 04/29/2025 9:27 PM CDT [facility] PLATELETS 291 140 - 440 K/uL 04/29/2025 9:27 PM CDT [facility] MPV 9.9 8.9 - 12.8 fL 04/29/2025 9:27 PM CDT [facility] RDW 12.7 11.0 - 14.5 % 04/29/2025 9:27 PM CDT [facility] RDW-STDEV 41.6 37.0 - 54.0 fL 04/29/2025 9:27 PM CDT [facility] NEUTROPHILS 56 42 - 75 % 04/29/2025 9:27 PM CDT [facility] LYMPHOCYTES 36 24 - 44 % 04/29/2025 9:27 PM CDT [facility] MONOCYTES 7 2 - 10 % 04/29/2025 9:27 PM CDT [facility] EOSINOPHILS 0 0 - 7 % 04/29/2025 9:27 PM CDT [facility] BASOPHILS 0 0 - 1 % 04/29/2025 9:27 PM CDT [facility] IMMATURE GRANULOCYTES 0 0 - 2 % 04/29/2025 9:27 PM CDT [facility] NEUTROPHIL ABSOLUTE 6.04 2.00 - 8.00 K/uL 04/29/2025 9:27 PM CDT [facility] LYMPHOCYTE ABSOLUTE 3.83 1.20 - 4.00 K/uL 04/29/2025 9:27 PM CDT [facility] MONOCYTE ABSOLUTE 0.76(H) 0.10 - 0.60 K/uL 04/29/2025 9:27 PM CDT [facility] EOSINOPHIL ABSOLUTE 0.04 0.00 - 0.70 K/uL 04/29/2025 9:27 PM CDT [facility] BASOPHILS ABSOLUTE 0.03 0.00 - 0.20 K/uL 04/29/2025 9:27 PM CDT [facility] IMMATURE GRANULOCYTES ABSOLUTE 0.01 0.00 - 0.10 K/uL 04/29/2025 9:27 PM CDT [facility] SMEAR REVIEWED: NA - Not Applicable 04/29/2025 9:27 PM CDT [facility] Blood Venipuncture / Unknown 04/29/2025 9:17 PM CDT 04/29/2025 9:24 PM CDT us Soy ULRICH HEMATOLOGY ORDERABLES Final Res ult [facility] CLIA # [id number] [address] [place] [address] [place] [address] * XR CHEST PA OR AP 1 VW (04/29/2025 8:03 PM CDT) Anatomical Region Laterality Modality Chest Computed Radiogr aphy 04/29/2025 8:03 PM CDT Impressions 04/29/2025 11:04 PM CDT IMPRESSION: See below. EXAMINATION: XR CHEST PA OR AP 1 VW CLINICAL HISTORY: ASSOCIATED DIAGNOSIS: Dizziness ORDERING PROVIDER: SOY BA NOTE: COMPARISON: None FINDINGS/IMPRESSION: Lines, tubes, and devices: None. Lungs are clear. Calcified granuloma is seen left hilum. No significant effusion or pneumothorax. Heart size within normal limits. ACDF. Narrative Procedure Note Db Szymanski MD - 04/29/2025 IMPRESSION: See below. EXAMINATION: XR CHEST PA OR AP 1 VW CLINICAL HISTORY: ASSOCIATED DIAGNOSIS: Dizziness ORDERING PROVIDER: SOY BA NOTE: COMPARISON: None FINDINGS/IMPRESSION: Lines, tubes, and devices: None. Lungs are clear. Calcified granuloma is seen left hilum. No significant effusion or pneumothorax. Heart size within normal limits. ACDF. us Soy ULRICH DIAGNOSTIC IMAGING ORDERABLES F inal Result * CT HEAD WO CONTRAST (04/29/2025 7:56 PM CDT) Anatomical Region Laterality Modality Head Computed Tomogra phy 04/29/2025 7:56 PM CDT Impressions 04/29/2025 8:04 PM CDT IMPRESSION: No acute intracranial abnormality. MACRO: None Narrative 04/29/2025 8:04 PM CDT EXAMINATION: CT HEAD WO CONTRAST CLINICAL HISTORY: ASSOCIATED DIAGNOSIS: headache dizziness 2-3 weeks ORDERING PROVIDER: SOY BA NOTE: COMPARISON: None TECHNIQUE: Thin axial imaging of the head was performed without intravenous contrast. FINDINGS: No acute intracranial hemorrhage or extra-axial fluid collection. Prominence of the ventricles and mild generalized parenchymal volume loss. No hydrocephalus. No mass effect, midline shift or other herniation. Basal cisterns are adequately preserved.Sellar contour is unremarkable for age. Subtle subcortical supratentorial white matter hypoattenuation which are nonspecific but compatible with mild chronic microvascular ischemic changes. Mild paranasal sinus mucosal thickening. No acute osseous abnormalities. Right lens implant. Procedure Note Db Szymanski MD - 04/29/2025 EXAMINATION: CT HEAD WO CONTRAST CLINICAL HISTORY: ASSOCIATED DIAGNOSIS: headache dizziness 2-3 weeks ORDERING PROVIDER: SOY [employer] NOTE: COMPARISON: None TECHNIQUE: Thin axial imaging of the head was performed without intravenous contrast. FINDINGS: No acute intracranial hemorrhage or extra-axial fluid collection. Prominence of the ventricles and mild generalized parenchymal volume loss. No hydrocephalus. No mass effect, midline shift or other herniation. Basal cisterns are adequately preserved.Sellar contour is unremarkable for age. Subtle subcortical supratentorial white matter hypoattenuation which are nonspecific but compatible with mild chronic microvascular ischemic changes. Mild paranasal sinus mucosal thickening. No acute osseous abnormalities. Right lens implant. IMPRESSION: No acute intracranial abnormality. MACRO: None us Soy ULRICH CT ORDERABLES Final Result * EKG 12-LEAD (04/29/2025 7:13 PM CDT) 04/29/2025 7:13 PM CDT Narrative INTERFACE SYSTEM - 04/30/2025 1:19 [place] [address] Test Date: 2025-04-29 Pat Name: RAMÓN MICHEL Department: 11 Room: Gender: M Preparatory Technician: [id number] : 1955 Requested By: Order Number: [id number] [place] MD: Luanne Saab Measurements Intervals [place] Rate: 87 P: 45 IA: 136 QRS: 14 QRSD: 96 T: 59 QT: 366 QTc: 440 Interpretive Statements Normal sinus rhythm Normal ECG Electronically Signed On 04-30-2025 13:19:09 CDT by Luanne Saab Procedure Note Luanne Saab MD - 04/30/[address] [address] Test Date: 2025-04-29 Pat Name: RAMÓN MICHEL Department: 11 Room: Gender: M Preparatory Technician: [id number] : 1955 Requested By: Order Number: [id number] [place] : Luanne Saab Measurements Intervals [place] Rate: 87 P: 45 IA: 136 QRS: 14 QRSD: 96 T: 59 QT: 366 QTc: 440 Interpretive Statements Normal sinus rhythm Normal ECG Electronically Signed On 04-30-2025 13:19:09 CDT by Luanne Saab us Soy ULRICH ECG ORDERABLES Final Result INTERFACE SYSTEM Refer to clinic/hospital department documented in this encounter Visit Diagnoses Diagnosis Benign paroxysmal positional vertigo of left ear- Primary Intractable nausea and vomiting Persistent vomiting Benign paroxysmal positional vertigo of left ear Lesion of parotid gland Vertigo Dizziness and giddiness Intractable nausea and vomiting Persistent vomiting Dementia (CMS/HCC) Dementia, unspecified, without behavioral disturbance Stress and adjustment reaction GERD (gastroesophageal reflux disease) Esophageal reflux Vertigo Dizziness and giddiness documented in this encounter Administered Medications Inactive Administered Medications - up to 3 most recent administrations Medication Order MAR Action Action Date Dose Rate Site acetaminophen (TYLENOL) tablet 650 mg 650 mg, Oral, EVERY 6 HOURS PRN, Starting on Mon04/30/25 at 0124, Until Mon05/02/25 at 1745, Other (See Comment), See admin instructions, Routine aluminum - magnesium - simethicone (MYLANTA) 200-200-20 mg/5 mL oral suspension 30 mL 30 mL, Oral, EVERY 2 HOURS PRN, Starting on Mon04/30/25 at 0125, Until Mon05/02/25 at 1745, Indigestion, Routine bisacodyL (DULCOLAX) rectal suppository 10 mg 10 mg, Rectal, DAILY PRN, Starting on Mon04/30/25 at 0125, Until Mon05/02/25 at 1745, Constipation, Routine dextrose 5 % in water 250 mL flush bag 25 mL 25 mL, IV, SEE ADMIN INSTRUCTIONS, Starting on Mon04/30/25 at 0124, Until Mon05/02/25 at 1745, Routine DULoxetine (CYMBALTA) capsule 40 mg 40 mg, Oral, DAILY, First dose (after last modification) on Mon05/01/25 at 0900, Until Discontinued, Routine Given 05/02/2025 10:21 AM CDT 40 mg Given 05/01/2025 9:30 AM CDT 40 mg DULoxetine (CYMBALTA) capsule 60 mg 60 mg, Oral, DAILY, First dose on Mon04/30/25 at 0900, Until Discontinued, Routine Given 04/30/2025 8:26 AM CDT 60 mg enoxaparin (LOVENOX) injection 40 mg 40 mg, subCUT, EVERY 24 HOURS, First dose on Mon04/30/25 at 0900, Until Discontinued, Routine, Indication: Prophylaxis of VTE, Dose to be adjusted per facility protocol? Yes Given 05/01/2025 9:31 AM CDT 40 mg Abdomen, Left Lower Quadrant Given 04/30/2025 8:27 AM CDT 40 mg Ab dominal Tissue galantamine (RAZADYNE) tablet 8 mg 8 mg, Oral, TWO TIMES DAILY WITH MEALS, First dose on Mon04/30/25 at 0800, Until Discontinued, Routine Given 04/30/2025 9:58 AM CDT 8 mg LORazepam (ATIVAN) 2 mg/mL injection 0.5 mg 0.5 mg, IV, ONE TIME ONLY, 1 dose, On Mon04/30/25 at 0130, Routine Given 04/30/2025 1:40 AM CDT 0.5 mg magnesium HYDROXIDE (MILK OF MAGNESIA) oral suspension 30 mL 30 mL, Oral, DAILY PRN, Starting on Mon04/30/25 at 0125, Until Mon05/02/25 at 1745, Constipation, Routine meclizine (ANTIVERT) tablet 25 mg 25 mg, Oral, THREE TIMES DAILY PRN, Starting on Mon04/30/25 at 1043, Until Mon05/02/25 at 1745, Nausea, Routine Given 05/02/2025 10:57 AM CDT 25 mg Given 05/01/2025 3:48 PM CDT 25 mg Given 04/30/2025 11:50 AM CDT 25 mg melatonin tablet 9 mg 9 mg, Oral, NIGHTLY PRN, Starting on Mon04/30/25 at 0125, Until Mon05/02/25 at 1745, Insomnia, Routine naloxone (NARCAN) 0.4 mg/mL injection 0.1-0.4 mg 0.1-0.4 mg, IV, SEE ADMIN INSTRUCTIONS, Starting on Mon04/30/25 at 0124, Until Mon05/02/25 at 1745, Routine oxyCODONE (ROXICODONE) tablet 5 mg 5 mg, Oral, EVERY 4 HOURS PRN, Starting on Mon04/30/25 at 0125, Until Mon05/02/25 at 1745, Pain (See admin instructions), Routine pantoprazole (PROTONIX) tablet 40 mg 40 mg, Oral, DAILY BEFORE BREAKFAST, First dose on Mon04/30/25 at 0730, Until Discontinued, Routine, Indication: Gastroesophageal reflux disease (GERD) Given 05/02/2025 8:59 AM CDT 40 mg Given 05/01/2025 7:40 AM CDT 40 mg Given 04/30/2025 8:26 AM CDT 40 mg prochlorperazine (COMPAZINE) injection 5 mg 5 mg, IV, EVERY 6 HOURS PRN, Starting on Mon05/01/25 at 0846, Until Mon05/02/25 at 1745, Nausea/Emesis, Routine scopolamine (TRANSDERM-SCOP) 1 mg/72 hr transdermal patch 1 Patch 1 Patch, Transdermal, EVERY 72 HOURS, First dose on Mon04/30/25 at 0200, Until Discontinued, Routine Applied 04/30/2025 2:01 AM CDT 1 Patch Ear, Left sennosides-docusate sodium (SENNA-S) 8.6-50 mg per tablet 1 Tablet 1 Tablet, Oral, TWO TIMES DAILY PRN, Starting on Mon04/30/25 at 0125, Until Mon05/02/25 at 1745, Constipation, Routine sodium chloride (OCEAN) 0.65 % nasal soln 2 [place] 2 [place], Both Nostrils, FOUR TIMES DAILY, 20 doses, First dose on Mon05/02/25 at 1300, Last dose on Mon05/07/25 at 0900, Routine Given 05/02/2025 1:06 PM CDT 2 Sprays sodium chloride 0.9 % bolus solution 1,000 mL 1,000 mL, IV, ONE TIME ONLY, 1 dose, On Mon04/30/25 at 0045, at 2,000 mL/hr, Administer over 30 Minutes, Routine New Bag 04/30/2025 12:44 AM CDT 1,000 mL 2000 mL/hr sodium chloride 0.9 % flush bag 25 mL 25 mL, IV, SEE ADMIN INSTRUCTIONS, Starting on Mon04/30/25 at 0124, Until Mon05/02/25 at 1745, Routine sodium chloride 0.9 % infusion IV, at 100 mL/hr, CONTINUOUS, Starting on Mon04/30/25 at 0045, Until Mon05/01/25 at 0044, Routine New Bag 04/30/2025 3:50 PM CDT 100 mL/hr New Bag 04/30/2025 2:02 AM CDT 100 mL/hr sodium chloride flush injection 10 mL 10 mL, IV, EVERY 12 HOURS (BlD), First dose on Mon04/30/25 at 0130, Until Discontinued, Routine Given 05/02/2025 8:59 AM CDT 10 mL Given 05/01/2025 9:32 AM CDT 10 mL Admin by Another Clinician (Comment) 04/30/2025 1:30 AM CD T 10 mL sodium chloride flush injection 10 mL 10 mL, IV, SEE ADMIN INSTRUCTIONS, Starting on Mon04/30/25 at 0124, Until Mon05/02/25 at 1745, Routine documented in this encounter Active and Recently Administered Medications Times are shown in CDT. Scheduled Medication Order 04/30/2025 05/01/2025 05/02/2025 dextrose 5 % in water 250 mL flush bag 25 mL 25 mL, IV, SEE ADMIN INSTRUCTIONS, Starting on Mon04/30/25 at 0124, Until Mon05/02/25 at 1745, Routine DULoxetine (CYMBALTA) capsule 40 mg 40 mg, Oral, DAILY, First dose (after last modification) on Susan 05/01/25 at 0900, Until Discontinued, Routine 0930 (Given - Provider: Lashell Lovell RN) 1021 (Given - Provider: Lashell Lovell, EDUARDO) DULoxetine (CYMBALTA) capsule 60 mg (CANCELED) 60 mg, Oral, DAILY, First dose on Mon04/30/25 at 0900, Until Discontinued, Routine 0826 (Given - Provider: Dede Garcia, EDUARDO) enoxaparin (LOVENOX) injection 40 mg 40 mg, subCUT, EVERY 24 HOURS, First dose on Mon04/30/25 at 0900, Until Discontinued, Routine, Indication: Prophylaxis of VTE, Dose to be adjusted per facility protocol? Yes 0827 (Given - Provider: Dede Garcia, EDUARDO) 0931 (Given - Provider: Lashell Lovell RN) 0859 (Refused - Provider: Lashell Lovell RN) galantamine (RAZADYNE) tablet 8 mg (CANCELED) 8 mg, Oral, TWO TIMES DAILY WITH MEALS, First dose on Mon04/30/25 at 0800, Until Discontinued, Routine 0958 (Given - Provider: Dede Garcia RN) LORazepam (ATIVAN) 2 mg/mL injection 0.5 mg (COMPLETED) 0.5 mg, IV, ONE TIME ONLY, 1 dose, On Mon04/30/25 at 0130, Routine 0140 (Given - Provider: Emily Munoz LPN) naloxone (NARCAN) 0.4 mg/mL injection 0.1-0.4 mg 0.1-0.4 mg, IV, SEE ADMIN INSTRUCTIONS, Starting on Mon04/30/25 at 0124, Until Mon05/02/25 at 1745, Routine pantoprazole (PROTONIX) tablet 40 mg 40 mg, Oral, DAILY BEFORE BREAKFAST, First dose on Mon04/30/25 at 0730, Until Discontinued, Routine, Indication: Gastroesophageal reflux disease (GERD) 0826 (Given - Provider: Dede Garcia RN) 0740 (Given - Provider: Lashell Lovell, EDUARDO) 0859 (Given - Provider: Lashell Lovell RN) scopolamine (TRANSDERM-SCOP) 1 mg/72 hr transdermal patch 1 Patch 1 Patch, Transdermal, EVERY 72 HOURS, First dose on Mon04/30/25 at 0200, Until Discontinued, Routine 0201 (Applied - Provider: Emily Munoz LPN) 1545 (Due: Removed - Provider: PROVIDER, DISCHARGE PATIENT - Comment: Time automatically adjusted from order being discontinued) sodium chloride (OCEAN) 0.65 % nasal soln 2 [place] 2 [place], Both Nostrils, FOUR TIMES DAILY, 20 doses, First dose on Mon05/02/25 at 1300, Last dose on Mon05/07/25 at 0900, Routine 1306 (Given - Provider: Lashell Lovell, EDUARDO) sodium chloride 0.9 % bolus solution 1,000 mL (COMPLETED) 1,000 mL, IV, ONE TIME ONLY, 1 dose, On Mon04/30/25 at 0045, at 2,000 mL/hr, Administer over 30 Minutes, Routine 0044 (New Bag - Provider: Emily Munoz LPN)0114 (Stopped - Provider: Emily Munoz LPN) sodium chloride 0.9 % flush bag 25 mL 25 mL, IV, SEE ADMIN INSTRUCTIONS, Starting on Mon04/30/25 at 0124, Until Mon05/02/25 at 1745, Routine sodium chloride flush injection 10 mL 10 mL, IV, EVERY 12 HOURS (BlD), First dose on Mon04/30/25 at 0130, Until Discontinued, Routine 0130 (Admin by Another Clinician (Comment) - Provider: Emily Munoz LPN)0900 (Not Given - Provider: GISSEL Galindo - Reason: Patient off unit - Comment: pt in ER)2100 (Not Given - Provider: Enoc De Luna RN - Reason: Other - See Comment - Comment: med infusing) 0932 (Given - Provider: Lashell Lovell RN)2100 (Due) 0859 (Given - Provider: Lashell Lovell RN) sodium chloride flush injection 10 mL 10 mL, IV, SEE ADMIN INSTRUCTIONS, Starting on Mon04/30/25 at 0124, Until Mon05/02/25 at 1745, Routine Continuous Medication Order 04/30/2025 05/01/2025 05/02/2025 sodium chloride 0.9 % infusion () IV, at 100 mL/hr, CONTINUOUS, Starting on Mon04/30/25 at 0045, Until Susan 05/01/25 at 0044, Routine 0202 (New Bag - Provider: Emily Munoz LPN)1550 (New Bag - Provider: GISSEL Galindo) 0044 (Stopped - Provider: Enoc De Luna RN - Comment: [Order ends at this time. Document the following action when infusion is complete: Stopped]) PRN Medication Order 04/30/2025 05/01/2025 05/02/2025 acetaminophen (TYLENOL) tablet 650 mg 650 mg, Oral, EVERY 6 HOURS PRN, Starting on Mon04/30/25 at 0124, Until Mon05/02/25 at 1745, Other (See Comment), See admin instructions, Routine aluminum - magnesium - simethicone (MYLANTA) 200-200-20 mg/5 mL oral suspension 30 mL 30 mL, Oral, EVERY 2 HOURS PRN, Starting on Mon04/30/25 at 0125, Until Mon05/02/25 at 1745, Indigestion, Routine bisacodyL (DULCOLAX) rectal suppository 10 mg(Linked Group 1) 10 mg, Rectal, DAILY PRN, Starting on Mon04/30/25 at 0125, Until Mon05/02/25 at 1745, Constipation, Routine magnesium HYDROXIDE (MILK OF MAGNESIA) oral suspension 30 mL(Linked Group 1) 30 mL, Oral, DAILY PRN, Starting on Mon04/30/25 at 0125, Until Mon05/02/25 at 1745, Constipation, Routine meclizine (ANTIVERT) tablet 25 mg 25 mg, Oral, THREE TIMES DAILY PRN, Starting on Mon04/30/25 at 1043, Until Mon05/02/25 at 1745, Nausea, Routine 1150 (Given - Provider: Dede Garcia RN) 1548 (Given - Provider: Lashell Lovell RN) 1057 (Given - Provider: Lashell Lovell RN) melatonin tablet 9 mg 9 mg, Oral, NIGHTLY PRN, Starting on Mon04/30/25 at 0125, Until Mon05/02/25 at 1745, Insomnia, Routine oxyCODONE (ROXICODONE) tablet 5 mg 5 mg, Oral, EVERY 4 HOURS PRN, Starting on Mon04/30/25 at 0125, Until Mon05/02/25 at 1745, Pain (See admin instructions), Routine prochlorperazine (COMPAZINE) injection 5 mg 5 mg, IV, EVERY 6 HOURS PRN, Starting on Mon05/01/25 at 0846, Until Mon05/02/25 at 1745, Nausea/Emesis, Routine sennosides-docusate sodium (SENNA-S) 8.6-50 mg per tablet 1 Tablet 1 Tablet, Oral, TWO TIMES DAILY PRN, Starting on Mon04/30/25 at 0125, Until Mon05/02/25 at 1745, Constipation, Routine Linked Groups Order Group 1: magnesium HYDROXIDE (MILK OF MAGNESIA) oral suspension 30 mLJump to med 30 mL, Oral, DAILY PRN, Starting on Mon04/30/25 at 0125, Until Mon05/02/25 at 1745, Constipation, Routine Or bisacodyL (DULCOLAX) rectal suppository 10 mgJump to med 10 mg, Rectal, DAILY PRN, Starting on Mon04/30/25 at 0125, Until Mon05/02/25 at 1745, Constipation, Routine documented in this encounter
[2025-05-05 13:05] VITALS: BP 118/53; PULSE 75; RESP 14; TEMP 36.8; O2SAT 100; BMI 24.3
--- NOTE | 2025-05-05 13:05 | ECG_ITS ---
[facility] Date: 2025-05-05 Pat Name: Ramón Clarke Department: Room: Gender: Male [employer]: : [id number] Requested By: Lilian Melara Order Number: [id number] Reading MD: Measurements Intervals [place] Rate: 71 P: 61 [place]: 177 QRS: 64 QRSD: 109 T: 48 QT: 383 QTc: 418 Interpretive Statements SINUS RHYTHM No previous ECG available for comparison [email or web address]
--- NOTE | 2025-05-05 13:13 | ED_ITS ---
HPI - Dizziness 2 General: Chief Complaint: Dizziness Stated Complaint: n/v, possible seizure Time Seen by Provider: 05/05/25 13:12 History of Present Illness: HPI Narrative: 69-year-old man with a history of migrai shanelle and obstructive sleep apnea who presents emergency room with vertigo symptoms. He has had a history of severe chronic migraines and follows with Dr. Patrick. I had seen him about 10 days ago with a severe headache. He had been having some episodes of dizziness as well. After treatment he improved briefly but then symptoms came back worse. They went to [facility] and were admitted and evaluated by neurology there. Diagnosed with severe vertigo. Sent home with meclizine. Today he had another severe episode of dizziness and had near syncopal episode. says he started shaking briefly for about 60 seconds with no postictal state. He was still awake she said but appeared distant. Symptoms have now resolved. He is not dizzy. He says he feels a bit weak. Related Data Previous Rx's ?Medication ?Instructions ?Recorded ketorolac 10 mg tablet 10 mg PO Q6H PRN pain 5 days #10 08/05/22 tabs scopolamine base 1 mg over 3 days 1 patch transdermal Q3D PRN nausea 02/15/23 transdermal patch and vomiting #10 ea doxycycline hyclate 100 mg tablet 100 mg PO BID URI 7 days #14 tabs 08/02/23 prednisone 20 mg tablet 20 mg PO DAILY 5 days #5 tab s 08/02/23 memantine 10 mg tablet 10 mg PO BID #60 tabs memantine 5 mg-10 mg tablets in a See Rx Instructions PO PER PKG DIR 01/09/24 dose pack (Namenda Titration Michael) #49 ea duloxetine 60 mg capsule,delayed 60 mg PO BID #180 cap s 06/10/24 release galantamine 8 mg tablet See Rx Instructions .Route 0 10/08/24 .COMPLEX #180 tabs auto cpap, with supplies #1 ea 12/20/24 rizatriptan 10 mg disintegrating See Rx Instructions . Route 12/31/24 tablet .COMPLEX #10 tabs omeprazole 40 mg capsule,delayed See Rx Instructions . Route 01/15/25 release .COMPLEX #30 caps scopolamine base 1 mg over 3 days 1 patch transdermal Q3D PRN nausea 03/13/25 transdermal patch and vomiting #10 ea zolmitriptan 5 mg nasal spray See Rx Instructions .Rou te 04/02/25 .COMPLEX #6 ea prochlorperazine maleate 5 mg 5 mg PO QID PRN nausea a nd 04/22/25 tablet (Compazine) vomiting/dizziness #30 tabs ondansetron 8 mg disintegrating 8 mg PO Q6H #14 tabs 1 tablet lorazepam 1 mg tablet (Ativan) 1 mg PO BID PRN dizzine ss or 05/05/25 vertigo #20 tabs Allergies Allergy/AdvReac Type Severity Reaction Status Date / Time hydrocodone Allergy nausea Verified 05/05/25 13:08 Review of Systems 2 Narrative: Constitutional symptoms: Negative except as documented in HPI. Skin symptoms: Negative except as documented in HPI. Eye symptoms: Negative except as documented in HPI. ENMT symptoms: Negative except as documented in HPI. Respiratory symptoms: Negative except as documented in HPI. Cardiovascular symptoms: Negative except as documented in HPI. Gastrointestinal symptoms: Negative except as documented in HPI. Genitourinary symptoms: Negative except as documented in HPI. Musculoskeletal symptoms: Negative except as documented in HPI. Neurologic symptoms: Negative except as documented in HPI. Psychiatric symptoms: Negative except as documented in HPI. Endocrine symptoms: Negative except as documented in HPI. PFSH ED 2 PFSH: Medical History (Updated 05/05/25 @ 15:06 by Lilian Mcgowan MD) Muscle strain of left thigh Injury of upper leg Migraine Cognitive impairment Fatigue Social History Smoking and tobacco/nicotine status: never used tobacco/nicotine Alcohol intake: never Substance/Drug Use: never Physical Exam 2 Narrative: EXAM NARRATIVE: General: Alert, no acute distress. Skin: Warm, dry. Head: Normocephalic, atraumatic. Neck: Supple, trachea midline. Eye: Extraocular movements are intact. Ears, nose, mouth and throat: mucosa moist. Cardiovascular: Regular, Normal peripheral perfusion. Respiratory: Lungs are clear to auscultation, respirations are non-labored, breath sounds are equal, Symmetrical chest wall expansion. Gastrointestinal: Soft, Nontender, Non distended Musculoskeletal: Normal ROM, no deformity. Neurological: Alert and oriented, No focal neurological deficit observed. Psychiatric: Cooperative, appropriate mood & affect. Course 2 Vital Signs: Vital signs: Vital Signs Temperature 98.3 F 05/05/25 13:05 Pulse Rate 66 05/05/25 13:37 Respiratory Rate 24 H 05/05/25 13:37 Blood Pressure 124/75 05/05/25 13:37 Pulse Oximetry 97 05/05/25 13:37 Oxygen Delivery Me thod Room Air 05/05/25 13:37 MDM - Dizziness Medical Decision Making Medical decision making: Patient's reason for coming to the emergency room: Dizziness, near syncope Social determinants: Patient is retired. Has good social support. Both daughter and are here and involved in his care. I reviewed the patient's medical record. 69-year-old man with a history of migraines and obstructive sleep apnea who presents emergency room with vertigo symptoms. He has had a history of severe chronic migraines and follows with Dr. Patrick. I saw him about 10 days ago. Apparently he has been to I reviewed the patient's current home meds: Patient had been placed on memantine at 1 point. Alternate historians: Also obtained history from the patient's . She actually provided quite a bit of extra information. Differential diagnosis including but not limited to and based on the above HPI, review of systems and physical exam: for patient with complaint of dizziness: stroke, hypotension, hypertension, infection, vertigo, orthostasis Orders placed to evaluate differential diagnosis based on the above differential, HPI and physical exam CT head: No acute intracranial process. No intracranial hemorrhage, no evidence of infarct. No evidence of acute fracture. This was reviewed and interpreted by myself the emergency room physician. I also reviewed the radiology report. Chest x-ray: No acute process. No infiltrate. No pneumothorax. This was reviewed and interpreted by myself the emergency room physician. I also reviewed the radiology report. EKG: Time 1310. Rate 71. Normal sinus rhythm, No ST-T changes, no ectopy, normal MO & QRS intervals, This was reviewed and interpreted by myself the ER physician at 1320 Lab Review: Laboratory results were reviewed and interpreted by myself the emergency room physician. No leukocytosis. No anemia. No renal failure. Assessment of risk: - Level of risk: Moderate - Was hospitalization considered? Yes. But patient had a comprehensive workup recently at [facility]. Symptoms have improved some. Consultation: I spoke with Dr. Patrick who follow-up with the patient for his migraines in the past. She recommends Depakote and Ativan with Ativan for home. She will follow-up with him in the very near future. Reexamination: Patient remained stable. No increased work of breathing. No altered mental status. No focal motor deficits. Assessment and plan: Vertigo Migraine headache ? Referral to physical therapy. ? IV Ativan and IV Depakote. - Discharged home - Discussed plan with patient. Answered any questions. - Evaluation and treatment of this problem were appropriate in the emergency setting. Lab Data 05/05/25 13:16 05/05/25 13:16 Radiology Impressions Chest X-Ray 05/05/25 13:24 IMPRESSION: 1. Pulmonary hyperinflation. No acute finding. Head CT 05/05/25 13:25 IMPRESSION: 1. No acute intracranial hemorrhage or edema. 2. Mild atrophy and small vessel disease. Laboratory Results WBC 7.24 10^3/uL (3.29-11.43) 05/05/25 13:16 RBC 5.13 10^6/uL (3.85-5.65) 05/05/25 13:16 Hgb 15.40 g/dL (11.27-16.99) 05/05/25 13:16 Hct 46.2 % (37-53) 05/05/25 13:16 MCV 90.1 fl (82-101) 05/05/25 13:16 MCH 30.0 pg (27-33) 05/05/25 13:16 MCHC 33.3 g/dL (30-55) 05/05/25 13:16 RDW 12.7 % (12.1-15.1) 05/05/25 13:16 Plt Count 291 10^3/cmm (157-399) 05/05/25 13:16 MPV 10.5 fL (7.4-10.4) H 05/05/25 13:16 Neut % (Auto) 56.0 % 05/05/25 13:16 Lymph % (Auto) 36.6 % 05/05/25 13:16 [place]ombs % (Auto) 5.7 % 05/05/25 13:16 Eos % (Auto) 0.8 % 05/05/25 13:16 Baso % (Auto) 0.6 % 05/05/25 13:16 Neut # (Auto) 4.06 10^3/uL (1.8-7.7) 05/05/25 13:16 Lymph # (Auto) 2.7 10^3/uL (0.8-4.8) 05/05/25 13:16 [place] # (Auto) 0.4 10^3/uL (0.2-0.9) 05/05/25 13:16 Eos # (Auto) 0.1 10^3/uL (0.0-0.8) 05/05/25 13:16 Baso # (Auto) 0.0 10^3/uL (0.0-0.1) 05/05/25 13:16 Nucleated RBC % (auto) 0 % 05/05/25 13:16 Nucleated RBCs # 0.0 /100WBC 05/05/25 13:16 Sodium 137 mmol/L (136-145) 05/05/25 13:16 Potassium 4.8 mmol/L (3.5-5.1) 05/05/25 13:16 Chloride 98 mmol/L (98-107) 05/05/25 13:16 Carbon Dioxide 24 mmol/L (22-29) 05/05/25 13:16 Anion Gap 19.8 (5-19) H 05/05/25 13:16 BUN 18 mg/dL (8-23) 05/05/25 13:16 Creatinine 1.1 mg/dL (0.7-1.2) 05/05/25 13:16 GFR Calculation 66.4 mL/min (90-130) L 05/05/25 13:16 Glucose 113 mg/dL (65-115) 05/05/25 13:16 Calculated Osmolality 287 mOsm/kg (285-295) 05/05/25 13:16 Lactic Acid 2.5 mmol/L (0.5-2.2) H 05/05/25 13:16 Calcium 10.2 mg/dL (8.5-10.5) 05/05/25 13:16 Total Bilirubin 0.5 mg/dL (0.15-1.2) 05/05/25 13:16 AST 12 U/L (0-40) 05/05/25 13:16 ALT 17 U/L (0-41) 05/05/25 13:16 Alkaline Phosphatase 69 U/L (40-130) 05/05/25 13:16 Total Protein 7.3 g/dL (6.6-8.7) 05/05/25 13:16 Albumin 4.6 g/dL (3.5-5.2) 05/05/25 13:16 Globulin 2.7 g/dL (1.3-4.6) 05/05/25 13:16 Lipase 32 U/L (13-60) 05/05/25 13:16 Urine Color Yellow (Yellow) 05/05/25 14:55 Urine Appearance Clear (CLEAR) 05/05/25 14:55 Urine pH 7.0 (5-7) 05/05/25 14:55 Ur Specific [place] 1.024 (1.005-1.030) 05/05/25 14:55 Urine Protein 1+ (Negative) A 05/05/25 14:55 Urine Glucose (UA) Negative (Normal) 05/05/25 14:55 Urine Ketones Trace (Negative) 05/05/25 14:55 Urine Blood Negative (Negative) 05/05/25 14:55 Urine Nitrate Negative (Negative) 05/05/25 14:55 Urine Bilirubin Negative (Negative) 05/05/25 14:55 Urine Urobilinogen 1.0 mg/dL (Negative) 05/05/25 14:55 Ur Leukocyte Esterase Negative (Negative) 05/05/25 14:55 Amorphous Sediment Not Reportable 05/05/25 14:55 Influenza A (PCR) Negative (Negative) 05/05/25 13:21 Influenza Type B (PCR) Negative (Negative) 05/05/25 13:21 RSV (PCR) Negative (Negative) 05/05/25 13:21 SARS-CoV-2 (PCR) Negative (Negative) 05/05/25 13:21 All radiology interpretation(s) finalized by discharge Discharge Plan Discharge Patient Disposition: Home Clinical Impression: Benign paroxysmal positional vertigo Condition: Stable Prescriptions: New lorazepam [Ativan] 1 mg tablet 1 mg PO BID PRN (Reason: dizziness or vertigo) Qty: 20 0RF No Action ketorolac 10 mg tablet 10 mg PO Q6H PRN (Reason: pain) 5 Days Qty: 10 1RF Rx Instructions: Take for headaches that are unrelieved with Zomig prednisone 20 mg tablet 20 mg PO DAILY 5 Days Qty: 5 0RF doxycycline hyclate 100 mg tablet 100 mg PO BID 7 Days Qty: 14 0RF prochlorperazine maleate [Compazine] 5 mg tablet 5 mg PO QID PRN (Reason: nausea and vomiting/dizziness) Qty: 30 0RF scopolamine base 1 mg over 3 days patch 3 day 1 patch transdermal Q3D PRN (Reason: nausea and vomiting) Qty: 10 1RF (DME) auto cpap, with supplies See Rx Instructions .Route .MEDSUPPLY Qty: 1 0RF Rx Instructions: 6-14 cm of H2O, use nightly for JOSEFA scopolamine base 1 mg over 3 days patch 3 day 1 patch transdermal Q3D PRN (Reason: nausea and vomiting) Qty: 10 0RF memantine 10 mg tablet 10 mg PO BID Qty: 60 5RF Rx Instructions: after starter pack memantine [Namenda Titration Michael] 5-10 mg tablets,dose pack See Rx Instructions PO PER PKG DIR Qty: 49 0RF Rx Instructions: PO PER PKG DIR duloxetine 60 mg capsule,delayed release(DR/EC) 60 mg PO BID Qty: 180 3RF galantamine 8 mg tablet See Rx Instructions .ROUTE .COMPLEX Qty: 180 3RF Dose Instruction: TAKE 1 TABLET BY MOUTH TWICE DAILY with morning and evening meals Rx Instructions: TAKE 1 TABLET BY MOUTH TWICE DAILY with morning and evening meals rizatriptan 10 mg tablet,disintegrating See Rx Instructions .ROUTE .COMPLEX Qty: 10 5RF Dose Instruction: DISSOLVE ONE TABLET BY MOUTH EVERY 2 HOURS NEEDED FOR MIGRAINE HEADACHE. DO NOT EXCEED THREE DOSES PER 24 HOURS Rx Instructions: DISSOLVE ONE TABLET BY MOUTH EVERY 2 HOURS NEEDED FOR MIGRAINE HEADACHE. DO NOT EXCEED THREE DOSES PER 24 HOURS omeprazole 40 mg capsule,delayed release(DR/EC) See Rx Instructions .ROUTE .COMPLEX Qty: 30 11RF Dose Instruction: TAKE ONE CAPSULE BY MOUTH EVERY DAY FOR stomach Rx Instructions: TAKE ONE CAPSULE BY MOUTH EVERY DAY FOR stomach zolmitriptan 5 mg spray,non-aerosol See Rx Instructions .ROUTE .COMPLEX Qty: 6 0RF Dose Instruction: USE ONE SPRAY EVERY 2 HOURS as needed for headache *max of TWO SPRAYS PER day* Rx Instructions: USE ONE SPRAY EVERY 2 HOURS as needed for headache *max of TWO SPRAYS PER day* ondansetron 8 mg tablet,disintegrating 8 mg PO Q6H Qty: 14 0RF Rx Instructions: Take 1/2-1 tab every 6 hours as needed for nausea and vomiting Discharge Orders: Discharge ED (Routine); Ordered 05/05/25 Ordered By: Lilian Mcgowan Referrals: Chad Hunt DO [Primary Care Provider, Family Practice] Discharge Diet: Usual diet Discharge Activity: Increase activity as tolerated Patient Instructions: Vertigo (ED), Benign Paroxysmal Positional Vertigo (ED), Opioid Safety, Pain Management, Patient Portal & Kam Instructions Activity Restrictions/Additional Instructions: Thank you for choosing [facility] for your healthcare needs today. You have been screened and evaluated and felt safe for discharge. Health conditions do change or evolve sometimes and as such it is important that you follow up with your Primary Doctor to be re checked, 3-5 days is a general good time frame for follow up. You are always welcome to return to the ED for re assessment if your symptoms are worsening or you have new concerns Print Language: Tongan Coding Level of Care Code ED Air Compressor Operator for Bjorn Brown
--- OUTSIDE RECORDS SUMMARY | 2025-05-05 13:20 | XMS_ITS | Encounter Summary ---
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 No 04/29/2025 Transportation Needs Answer Date Record ed Have you gone without health care because you didn t have a way to get there? Or worry about transportation for future doctor visits, pick pulling machine tender medication, etc.? 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
--- OUTSIDE RECORDS SUMMARY | 2025-05-05 13:20 | XMS_ITS | Clinical Summary ---
Author Organization [facility] Address [address] 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 Active omeprazole (PriLOSEC) 40 mg Capsule, Delayed Release(E.C.) Take 40 mg by mouth daily. Active ZOLMitriptan (ZOMIG) 5 mg Tablet, Rapid Dissolve Place 5 mg inside cheek every 2 hours as needed for Migraine. may repeat in 2 hours; max dose 10mg in 24 hours Active memantine (NAMENDA) 5 mg Tablet Take 5 mg by mouth 2 times daily. Active ZOLMitriptan (Zomig) [place], Non-Aerosol Administer 1 [place] in right nostril every 2 hours as needed for Migraine. may repeat in 2 hours; max dose 10mg in 24 hours Active DULoxetine 40 mg Capsule, Delayed Release(E.C.) Take 40 mg by mouth daily. 30 Capsule 05/03/20 25 Active meclizine (ANTIVERT) 25 mg tablet Take 1 Tablet (25 mg) by mouth 3 times daily as needed for Nausea. 20 Tablet 05/02/20 25 Active sodium chloride (OCEAN) 0.65 % Aerosol, [place] Administer 2 Sprays in each nostril 4 times daily as needed for Congestion or Allergies. 200 mL 05/02/20 25 Active DULoxetine (CYMBALTA) 60 mg Capsule, Delayed Release(E.C.) Take 60 mg by mouth daily. 025 Discontinued Active Problems Problem Noted Date Diagnosed Date Benign paroxysmal positional vertigo of left ear 05/02/2025 Vertigo 05/01/2025 Intractable nausea and vomiting 04/30/2025 Dementia 04/30/2025 Stress and adjustment reaction 04/30/2025 GERD (gastroesophageal reflux disease) Encounters Date Type Department Care Team Description 04/29/2025 11:34 PM CDT - 05/02/2025 3:45 PM CDT Hospital Encounter [facility] Medical Telemetry [address] [place] [address] Dillon Dangelo MD Randhawa, MD Sathish Davis, Diogenes Kenny MD Benign paroxysmal positional vertigo of left ear Discharge Disposition: Home or Self Care 04/29/2025 Travel from Last 3 Months Social History Tobacco Use Types Packs/Day Years [...] worry about transportation for future doctor visits, apple picker medication, etc.? 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 Gender Identity Not on file Sexual Orientation Not on file Last Filed Vital Signs Vital Sign Reading [...] Mass Index 24.39 04/30/2025 7:48 AM CDT Plan of Treatment Upcoming Encounters Date Type Department Care Team (Late st Contact Info) Description 10/14/2025 10:00 AM CDT Office Visit [facility] Neurology - [place] [address] [place] [address] Jesus Salmon MD [address] [place] [address] Health Maintenance Due Date Last Done Comments DTAP/TDAP/TD VACCINES (1 - Tdap) 1974 Traditional Medicare (ACO) A nnual Wellness Visit 1974 COLORECTAL SCREENING 2000 Colorectal Cancer Screening 2000 FIT-DNA Q 3 years 2000 FIT/FOBT Q 1 year 2000 Flex Sig/CT Colonography Q 5 years 2000 PNEUMOCOCCAL VACCINE 50+ YEA RS (1 of 1 - PCV) 2005 ZOSTER VACCINE (1 of 2) 2005 INFLUENZA VACCINE (#1) 2025 COVID-19 Vaccine ( - season) 2025 07/20/2021, 09/29/2020, 2020 RSV VACCINE (60+ or ) (1 - 1-dose 75+ series) 2030 Procedures Procedure Name Priority Date/Time Associated Diagnosis [...] W/REFLEX MICROSCOPIC Stat 04/29/2025 10:11 PM CDT MAGNESIUM LEVEL Stat 04/29/2025 9:17 PM CDT LIPASE Stat 04/29/2025 9:17 PM CDT TROPONIN BASELINE, 5TH GEN Stat 04/29/2025 9:17 PM CDT COMPREHENSIVE METABOLIC PANEL Stat 04/29/2025 9:17 PM CDT CBC WITH DIFFERENTIAL Stat 04/29/2025 9:17 PM CDT XR CHEST PA OR AP 1 VW Stat 04/29/2025 8:[address] HEAD WO CONTRAST Stat 04/29/2025 7 :56 PM CDT EKG 12-LEAD Stat 04/29/2025 7:13 PM CDT from Last 3 Months Results * (ABNORMAL) BASIC METABOLIC PANEL (05/02/2025 3:39 AM CDT) Only the most recent of2 resultswithin the time period is included. SODIUM 139 136 - 145 mmol/L 05/02/2025 4:27 AM CDT [facility] POTASSIUM 3.6 3.5 - 5.1 mmol/L 05/02/2025 4:27 AM CDT [facility] CHLORIDE 105 98 - 107 mmol/L 05/02/2025 4:27 AM T [facility] CO2 24 22 - 29 mmol/L 05/02/2025 4:27 AM T [facility] CALCIUM 9.1 8.8 - 10.2 mg/dL 05/02/2025 4:27 AM T [facility] BUN 17 8 - 23 mg/dL 05/02/2025 4:27 AM T [facility] CREATININE 1.15 0.67 - 1.17 mg/dL 05/02/2025 4:27 AM T [facility] GLUCOSE 114(H) 74 - 99 mg/dL 05/02/2025 4:27 AM T [facility] GFR >60 >=60 mL/min/1.7 3 sq meter 05/02/2025 4:27 AM T [facility] Comment:eGFR calculated with 2020 CKD-EPI equation. Vegetarian diet, extremely high or low muscle mass, and may affect results. Cystatin C with Glomerular Filtration Rate is a suitable alternative for these patients. ANION GAP 10 9 - 20 mmol/L 05/02/2025 4:27 AM T [facility] Blood Venipuncture / Unknown 05/02/2025 3:39 AM CDT 05/02/2025 3:53 AM CDT Joshua Cornell MD CHEMISTRY ORDERABLES Fin al Result [facility] # [id number] [address] [place] [address] * MRI THORACIC WO CONTRAST (05/01/2025 3:30 [...] throughout the thoracic spine Procedure Note Farzaneh Sterling MD - 05/01/2025 EXAM: MRI THORACIC WO [...] Jose Alejandro Almanza MD MR ORDERABLES Crystal tinajero Result * MRI CERVICAL WO CONTRAST (05/01/2025 [...] salivary gland neoplasm. ENT follow-up is recommended. us Jose Alejandro Almanza MD MR ORDERABLES Crystal l Result * MRA VENOUS HEAD WO CONTRAST (04/30/2025 [...] no dural sinus venous thrombosis is seen. Dillon Dangelo MD MR ORDERABLES Final Result [...] <6 <=15 ng/L 04/30/2025 12:31 AM CDT [facility] Blood Venipuncture / Unknown 04/29/2025 11:48 PM CDT 04/29/2025 11:58 PM CDT Narrative [facility] - 04/30/2025 12:31 AM CDT Troponin Undetectable Delay in collection of timed specimen beyond recommended collection interval. Results must be interpreted in clinical context. Unable to calculate delta. Soy ULRICH CHEMISTRY ORDERABLES Final Resu lt [facility] CLIA # [id number] [address] [address] [place] [address] * EXTRA TUBE (URINE MUSTAFA) (04/29/2025 10:11 PM CDT) Urine URINE SPECIMEN OBTAINED BY CLEAN CATCH PROCEDURE / Unknown Collection / Unknown 04/29/2025 10:11 PM CDT 04/29/2025 10:14 PM CDT Soy ULRICH URINE ORDERABLES Final Result Performing Organization Address [facility]/ZIP Co de Phone Number [facility] CLIA # [id number] [address] [place] [address] * (ABNORMAL) URINALYSIS WITH REFLEX MICROSCOPIC (04/29/2025 10:11 PM CDT) COLOR UA Yellow Pale to Dark Yellow 04/29/2025 10:36 PM CDT [facility] CLARITY UA Clear Clear 04/29/2025 10:36 PM CDT [facility] SPECIFIC GRAVITY UA 1.035 1.003 - 1.035 04/29/2025 10:36 PM CDT [facility] PH UA 6.5 5.0 - 8.0 04/29/2025 10:36 PM CDT [facility] LEUKOCYTE ESTERASE UA Negative Negative 04/29/2025 10:36 PM CDT [facility] NITRITE UA Negative Negative 04/29/2025 10:36 PM CDT [facility] PROTEIN UA 1+(A) Negative 04/29/2025 10:36 PM CDT [facility] GLUCOSE UA Negative Negative 04/29/2025 10:36 PM CDT [facility] KETONES UA 2+(A) Negative 04/29/2025 10:36 PM CDT [facility] UROBILINOGEN UA <2.0 <2.0 mg/dL 10:36 PM CDT [facility] BILIRUBIN UA Negative Negative 04/29/2025 10:36 PM CDT [facility] BLOOD UA Negative Negative 04/29/2025 10:36 PM CDT [facility] WBC UA 0-2 0 - 2 /hpf 04/29/2025 10:36 PM CDT [facility] RBC UA 0-2 0 - 2 /hpf 04/29/2025 10:36 PM CDT [facility] BACTERIA UA Negative Negative /hpf 04/29/2025 10:36 PM CDT [facility] EPITHELIAL CELLS, URINE 0-5 0 - 5 /hpf 04/29/2025 10:36 PM CDT [facility] Urine URINE SPECIMEN OBTAINED BY CLEAN CATCH PROCEDURE / Unknown Collection / Unknown 04/29/2025 10:11 PM CDT 04/29/2025 10:14 PM CDT us Soy ULRICH URINE ORDERABLES Final Result [facility] CLIA # [id number] [address] [place] [address] [place], [place] [address] * TROPONIN BASELINE, 5TH GEN (04/29/2025 9:17 PM CDT) TROPONIN T, BASELINE 5TH GEN <6 <=15 ng/L 04/29/2025 10:04 PM CDT [facility] Blood Venipuncture / Unknown 04/29/2025 9:17 PM CDT 04/29/2025 9:31 PM CDT Narrative [facility] - 04/29/2025 10:04 PM CDT Troponin Undetectable us Soy ULRICH CHEMISTRY ORDERABLES Final Resu lt [facility] CLIA # [id number] [facility] [address] [address] [place] [address] * (ABNORMAL) CBC WITH DIFFERENTIAL (04/29/2025 9:17 PM CDT) Pathologist [facility] WBC 10.7 4.8 - 10.8 K/uL 04/29/2025 9:27 PM CDT [facility] RBC 5.27 4.60 - 6.20 M/uL 04/29/2025 9:27 PM CDT [facility] HEMOGLOBIN 16.0 14.0 - 18.0 g/dL 04/29/2025 9:27 PM CDT [facility] HEMATOCRIT 47.1 41.0 - 53.0 % 04/29/2025 9:27 PM CDT [facility] MCV 89.4 84.0 - 103.0 fL 04/29/2025 9:27 PM CDT [facility] MCH 30.4 27.0 - 34.0 pg 04/29/2025 9:27 PM CDT [facility] MCHC 34.0 30.0 - 35.0 g/dL 04/29/2025 9:27 PM CDT [facility] PLATELETS 291 140 - 440 K/uL 04/29/2025 9:27 PM CDT [facility] MPV 9.9 8.9 - 12.8 fL 04/29/2025 9:27 PM CDT [facility] RDW 12.7 11.0 - 14.5 % 04/29/2025 9:27 PM CDT [facility] RDW-STDEV 41.6 37.0 - 54.0 fL 04/29/2025 9:27 PM CDT [facility] NEUTROPHILS 56 42 - 75 % 04/29/2025 9:27 PM CDT [facility] LYMPHOCYTES 36 24 - 44 % 04/29/2025 9:27 PM CDT [facility] MONOCYTES 7 2 - 10 % 04/29/2025 9:27 PM CDT [facility] EOSINOPHILS 0 0 - 7 % 04/29/2025 9:27 PM CDT [facility] BASOPHILS 0 0 - 1 % 04/29/2025 9:27 PM CDT [facility] IMMATURE GRANULOCYTES 0 0 - 2 % 04/29/2025 9:27 PM CDT [facility] NEUTROPHIL ABSOLUTE 6.04 2.00 - 8.00 K/uL 04/29/2025 9:27 PM CDT [facility] LYMPHOCYTE ABSOLUTE 3.83 1.20 - 4.00 K/uL 04/29/2025 9:27 PM CDT [facility] MONOCYTE ABSOLUTE 0.76(H) 0.10 - 0.60 K/uL 04/29/2025 9:27 PM CDT [facility] EOSINOPHIL ABSOLUTE 0.04 0.00 - 0.70 K/uL 04/29/2025 9:27 PM CDT [facility] BASOPHILS ABSOLUTE 0.03 0.00 - 0.20 K/uL 04/29/2025 9:27 PM CDT [facility] IMMATURE GRANULOCYTES ABSOLUTE 0.01 0.00 - 0.10 K/uL 04/29/2025 9:27 PM T [facility] SMEAR REVIEWED: NA - Not Applicable 04/29/2025 9:27 PM T [facility] Blood Venipuncture / Unknown 04/29/2025 9:17 PM CDT 04/29/2025 9:24 PM CDT us Soy ULRICH HEMATOLOGY ORDERABLES Final Res ult [facility] CLIA # [id number] [address] [place], [place] [id number] * MAGNESIUM LEVEL (04/29/2025 9:17 PM CDT) [facility] MAGNESIUM 2.0 1.6 - 2.4 mg/dL 04/29/2025 10:11 PM CDT [facility] Blood Venipuncture / Unknown 04/29/2025 9:17 PM CDT 04/29/2025 9:31 PM CDT Soy ULRICH CHEMISTRY ORDERABLES Final Resu lt Performing Organization Address City/[facility]/ZIP Co de Phone Number [facility] CLIA # [id number] [id number] [place], [place] [id number] * LIPASE (04/29/2025 9:17 PM CDT) [facility] LIPASE 28 13 - 60 U/L 04/29/2025 10:09 PM CDT [facility] Blood Venipuncture / Unknown 04/29/2025 9:17 PM CDT 04/29/2025 9:31 PM CDT us Soy ULRICH CHEMISTRY ORDERABLES Final Resu lt [facility] CLIA # [id number] [address] [place], [place] [address] * (ABNORMAL) COMPREHENSIVE METABOLIC PANEL (04/29/2025 9:17 PM CDT) [facility] SODIUM 138 136 - 145 mmol/L 04/29/2025 10:11 PM CDT [facility] POTASSIUM 4.1 3.5 - 5.1 mmol/L 04/29/2025 10:11 PM CDT [facility] CHLORIDE 99 98 - 107 mmol/L 04/29/2025 10:11 PM [facility] CO2 24 22 - 29 mmol/L 04/29/2025 10:11 PM [facility] CALCIUM 10.1 8.8 - 10.2 mg/dL 04/29/2025 10:11 PM [facility] BUN 19 8 - 23 mg/dL 04/29/2025 10:11 PM [facility] CREATININE 1.19(H) 0.67 - 1.17 mg/dL 04/29/2025 10:11 PM [facility] GLUCOSE 109(H) 74 - 99 mg/dL 04/29/2025 10:11 PM [facility] TOTAL PROTEIN 7.8 6.4 - 8.3 g/dL 04/29/2025 10:11 PM [facility] ALBUMIN 4.5 3.5 - 5.2 g/dL 04/29/2025 10:11 PM [facility] BILIRUBIN TOTAL 0.6 0.0 - 1.0 mg/dL 04/29/2025 10:11 PM [facility] ALKALINE PHOSPHATASE 66 40 - 129 U/L 04/29/2025 10:11 PM [facility] AST 12 10 - 50 U/L 04/29/2025 10:11 PM [facility] ALT 12 <=50 U/L 04/29/2025 10:11 PM [facility] GFR >60 >=60 mL/min/1. 73 sq meter 04/29/2025 10:11 PM [facility] Comment:eGFR calculated with 2020 CKD-EPI equation. Vegetarian diet, extremely high or low muscle mass, and may affect results. Cystatin C with Glomerular Filtration Rate is a suitable alternative for these patients. ANION GAP 15 9 - 20 mmol/L 04/29/2025 10:11 PM [facility] Blood Venipuncture / Unknown 04/29/2025 9:17 PM CDT 04/29/2025 9:31 PM CDT us Soy ULRICH CHEMISTRY ORDERABLES Final Resu lt [facility] MIGUEL # [id number] [address] [address] [address] [place] [address] * XR CHEST PA OR AP 1 [...] pneumothorax. Heart size within normal limits. ACDF. 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1955 Requested By: Order Number: [id number] Reading MD: Luanne Saab Measurements Intervals [place] Rate: 87 P: 45 WA: 136 QRS: 14 QRSD: 96 T: 59 QT: 366 QTc: 440 Interpretive Statements Normal sinus rhythm Normal ECG Electronically Signed On 04-30-2025 13:19:09 CDT by Luanne Saab Procedure Note Luanne Saab MD - 04/30/2025 [address] [place] [address] Test Date: 2025-04-29 Pat Name: RAMÓN MICHEL Department: 11 Room: Gender: M 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1955 Requested By: Order Number: [id number] Reading MD: Luanne Saab Measurements Intervals [place] Rate: 87 P: 45 [place]: 136 QRS: 14 QRSD: 96 T: 59 QT: 366 QTc: 440 Interpretive Statements Normal sinus rhythm Normal ECG Electronically Signed On 04-30-2025 13:19:09 CDT by Luanne Saab us Soy ULRICH ECG ORDERABLES Final Result Performing Organization Address City/State/[facility] Co de Phone Number INTERFACE SYSTEM Refer to clinic/hospital department from Last 3 Months Insurance MEDICARE PART A AND B BCBS SUPP Advance Directives For more information, please contact: [phone] * Full Code (Latest Code Status on File) Date Activated Date Inactivated Comments 04/30/2025 1:26 AM 05/02/2025 5:45 PM
--- NOTE | 2025-05-05 13:24 | XR_ITS ---
WS: [id number] Exam: XR chest 1V portable [id number] Date/Time of Exam: 05/05/2025 1:24 PM Reason For Exam: Weakness Comparison 08/11/2022. The lungs are hyperinflated. No infiltrates. No pneumothorax. Normal cardiomediastinal silhouette. No pleural effusions. Fusion hardware noted in the lower C-spine. Unremarkable bony structures. Calcified LEFT hilar and mediastinal lymph nodes. XR/XR chest 1V portable [id number] IMPRESSION: 1. Pulmonary hyperinflation. No acute finding.
--- NOTE | 2025-05-05 13:25 | CT_ITS ---
WS: [id number] CT HEAD NONCONTRAST HISTORY: vertigo TECHNIQUE: Contiguous axial imaging performed through the brain. Bone and soft tissue windows. Sagittal and coronal reformats reviewed. All CT scans at [facility] use at least one of these dose optimization techniques: automated exposure control; mA and/or kV adjustment per patient size (includes targeted exams where dose is matched to clinical indication); or iterative reconstruction. DLP: 1163.29 mGy.cm COMPARISON: None available. No acute intracranial hemorrhage, midline shift or mass effect. Mild cerebral and cerebellar atrophy with mild small vessel disease. No prior infarct. Ventricles: Normal size with no hydrocephalus. Paranasal sinuses: As visualized are clear. Mastoid air cells: Well pneumatized. Calvarium and scalp: Skull is intact with no soft tissue edema or swelling. CT/CT head wo con* [id number] IMPRESSION: 1. No acute intracranial hemorrhage or edema. 2. Mild atrophy and small vessel disease.
[2025-05-05 13:37] VITALS: BP 124/75; PULSE 66; RESP 24; O2SAT 97
[2025-05-05 13:52] LABS: Hematocrit 46.2 % (37-53); Hemoglobin 15.40 g/dL (11.27-16.99); Mean Corpuscular HGB Conc 33.3 g/dL (30-55); Mean Corpuscular Hemoglobin 30.0 pg (27-33); Mean Corpuscular Volume 90.1 fl (82-101); Nucleated Red Blood Cells % 0 %; Platelet Count 291 10^3/cmm (157-399); Red Blood Count 5.13 10^6/uL (3.85-5.65); White Blood Count 7.24 10^3/uL (3.29-11.43)
[2025-05-05 14:13] LABS: Lactic Sepsis W/Reflex 2.5 mmol/L (0.5-2.2)
[2025-05-05 14:24] LABS: Alanine Aminotransferase 17 U/L (0-41); Albumin Level 4.6 g/dL (3.5-5.2); Alkaline Phosphatase 69 U/L (40-130); Anion Gap 19.8 (5-19); Aspartate Amino Transferase 12 U/L (0-40); Blood Urea Nitrogen 18 mg/dL (8-23); Calcium 10.2 mg/dL (8.5-10.5); Carbon Dioxide 24 mmol/L (22-29); Chloride 98 mmol/L (98-107); Creatinine Clr Calc Pharmacy 66.9161; Globulin 2.7 g/dL (1.3-4.6); Glucose 113 mg/dL (65-115); Lipase 32 U/L (13-60); Osmolality Calculated 287 mOsm/kg (285-295); Potassium 4.8 mmol/L (3.5-5.1); Sodium 137 mmol/L (136-145); Total Protein 7.3 g/dL (6.6-8.7)
[2025-05-05 15:15] LABS: Glucose Urine UA Negative (Normal); Nitrate Urine Negative (Negative); Specific Gravity, Urine 1.024 (1.005-1.030)
[2025-05-05 15:24] LABS: Respiratory Syncytial Virus Ce NEGATIVE (Negative); SARS-CoV-2 PCR NEGATIVE (Negative)
[2025-05-05] MEDS: LORazepam 2 mg/mL INJ 1 mL 1 MG IVP (15:32)
[2025-05-05 15:37] LABS: Reflex Lactate Order REFLEX LACTIC ORDERD
[2025-05-05 16:25] LABS: Lactic Acid level (Lactate) 1.6 mmol/L (0.5-2.2)
[2025-05-05 16:33] VITALS: BP 124/57; PULSE 83; O2SAT 97
== END 2025-05-05 16:40 | disposition home or self-care (01) ==
PROVIDERS: Emergency Medicine; Emergency Provider Emergency Medicine; PCP Family Medicine
DX: H81.10 Benign paroxysmal vertigo, unspecified ear (principal); Z11.52 Encounter for screening for COVID-19
CPT/HCPCS: 36415; 70450; 71045; 80053; 81001; 83605; 83690; 85025; 87040; 87637; 93005; 96365; 96375; 99285; J2060; J3490

== ENCOUNTER → 2025-06-10 12:55 | Outpatient (BNVA) | payer MEDICARE, BC, SELFPAY | PROVIDERS: PCP Family Medicine; Visit Provider Internal Medicine | DX: R06.00 Dyspnea, unspecified (principal) | CPT/HCPCS: 99213 ==